=== PATIENT | female | born 1955 | race Caucasian/White ===

== ENCOUNTER 2018-03-13 09:58 | Emergency (ER) | payer OTHER ==
[2018-03-13] MEDS ORDERED: NA CHLORIDE 0.9% 1,000 ML ONE (10:27)
[2018-03-13] MEDS ORDERED: ONDANSETRON 4 MG/2 ML VIAL ONE ×2 (10:27→12:55)
[2018-03-13] MEDS ORDERED: MORPHINE 4 MG/ML SYR ONE (10:51)
[2018-03-13 10:55] LABS: Absolute Lymphocytes (CBC) 1.3 K/uL (0.7-4.9); Absolute Monocytes 0.2 K/uL (0.1-1.3); Absolute Neutrophil 8.5 K/uL (1.8-8.0); Basophils % 0.6 % (0-1.3); Hematocrit 42.8 % (36.0-45.0); Lymphocytes % 13.2 % (15.3-44.8); MCH 30.5 pg (27.0-35.0); MCV 87.1 fL (80-100); MPV 8.4 fL (7.6-11.3); Monocytes % 1.9 % (3.3-12.3); RBC Red Blood Cell Count 4.91 M/uL (3.86-4.86)
[2018-03-13 11:03] LABS: Bilirubin Direct 0.2 mg/dL (0-0.2); Bilirubin Total 0.6 mg/dL (0.2-1.0); Potassium 3.7 mmol/L (3.5-5.1); Protein, Total 7.6 g/dL (6.4-8.2)
--- NOTE | 2018-03-13 12:47 | EDPHYS ---
Physician Documentation [facility] Name: Yara Vee Age: 63 yrs Sex: Female : 1955 Arrival Date: 03/13/2018 Time: 10:02 Bed 13 Private MD: Walter Gauthier ED Physician Jagjit Jenkins HPI: 03/13 10:56 This 63 yrs old Female presents to ER via Wheelchair with complaints of kb Vomiting. 10:56 The patient presents to the emergency department with nausea, vomiting, diarrhea. kb Onset: The symptoms/episode began/occurred 4 day(s) ago. Possible causes: unknown. The symptoms are aggravated by nothing. The symptoms are alleviated by nothing. Associated signs and symptoms: Pertinent positives: diarrhea, nausea, vomiting. Severity of symptoms: At their worst the symptoms were moderate in the emergency department the symptoms are unchanged. The patient has not experienced similar symptoms in the past. The patient has not recently seen a physician. Historical: - Allergies: 10:08 No Known Allergies; aa5 - Home Meds: 10:15 morphine 100 mg Oral TbER 3 times a day [Active]; lisinopril 10 mg Oral tab 1 tab once aa5 daily [Active]; metoprolol succinate 100 mg oral Tb24 1 tab once daily [Active]; pravastatin 40 mg oral tab 1 tab once daily [Active]; sertraline 100 mg oral tab 1 tab once daily [Active]; - PMHx: 10:08 Hypertension; chronic back pain; Hyperlipidemia; aa5 - Immunization history:: Flu vaccine is not up to date. - Social history:: Smoking status: Patient uses tobacco products, denies chronic smoking, but will smoke occasionally. - Ebola Screening: : No symptoms or risks identified at this time. ROS: 11:13 Constitutional: Negative for fever, chills, and weight loss, Cardiovascular: Negative kb for chest pain, palpitations, and edema, Respiratory: Negative for shortness of breath, cough, wheezing, and pleuritic chest pain, Back: Negative for injury and pain, : Negative for injury, bleeding, discharge, and swelling, MS/Extremity: Negative for injury and deformity, Skin: Negative for injury, rash, and discoloration, Neuro: Negative for headache, weakness, numbness, tingling, and seizure. 11:13 Abdomen/GI: Positive for nausea, vomiting, and diarrhea, Negative for abdominal pain, constipation, abdominal cramps, abdominal distension, anorexia. Exam: 11:13 Constitutional: This is a well developed, well nourished patient who is awake, alert, kb and in no acute distress. Head/Face: Normocephalic, atraumatic. Chest/axilla: Normal chest wall appearance and motion. Nontender with no deformity. No lesions are appreciated. Cardiovascular: Regular rate and rhythm with a normal S1 and S2. No gallops, murmurs, or rubs. Normal PMI, no JVD. No pulse deficits. Respiratory: Lungs have equal breath sounds bilaterally, clear to auscultation and percussion. No rales, rhonchi or wheezes noted. No increased work of breathing, no retractions or nasal flaring. Abdomen/GI: Soft, non-tender, with normal bowel sounds. No distension or tympany. No guarding or rebound. No evidence of tenderness throughout. Skin: Warm, dry with normal turgor. Normal color with no rashes, no lesions, and no evidence of cellulitis. MS/ Extremity: Pulses equal, no cyanosis. Neurovascular intact. Full, normal range of motion. Neuro: Awake and alert, GCS 15, oriented to person, place, time, and situation. Cranial nerves II-XII grossly intact. Motor strength 5/5 in all extremities. Sensory grossly intact. Cerebellar exam normal. Normal gait. Vital Signs: 10:10 BP 163 / 93; Pulse 82; Resp 16 S; Temp 97.9(O); Pulse Ox 98% on R/A; Weight 56.7 kg aa5 (R); Height 5 ft. 5 in. (165.10 cm) (R); Pain 10/10; 11:18 BP 128 / 105; Pulse 79; Resp 14; Pulse Ox 98% ; bp 10:10 Body Mass Index 20.80 (56.70 kg, 165.10 cm) aa5 MDM: 10:08 Patient medically screened. kb 11:13 Data reviewed: vital signs, nurses notes. Data interpreted: Pulse oximetry: on room air kb is 98 %. Interpretation: normal. 11:56 Counseling: I had a detailed discussion with the patient and/or guardian regarding: the kb historical points, exam findings, and any diagnostic results supporting the discharge/admit diagnosis, lab results, the need for outpatient follow up, a family practitioner, to return to the emergency department if symptoms worsen or persist or if there are any questions or concerns that arise at home. 03/13 10:14 Order name: Basic Metabolic Panel; Complete Time: 11:12 kb 03/13 10:14 Order name: CBC with Diff; Complete Time: 11:12 kb 03/13 10:14 Order name: Hepatic Function; Complete Time: 11:12 kb 03/13 10:14 Order name: Lipase; Complete Time: 11:12 kb 03/13 10:14 Order name: IV Saline Lock; Complete Time: 10:32 kb 03/13 10:14 Order name: Labs collected and sent; Complete Time: 10:33 kb 03/13 11:56 Order name: PO challenge; Complete Time: 12:10 kb Administered Medications: 10:30 Drug: NS 0.9% 1000 ml Route: IV; Rate: 1000 ml; Site: left antecubital; bp 10:30 Drug: Zofran 4 mg Route: IVP; Site: left antecubital; bp 10:46 Follow up: Response: Nausea is decreased bp 10:48 Drug: morphine 4 mg Route: IVP; Site: left antecubital; bp 10:48 Follow up: Response: Pain is decreased bp 12:45 Drug: [place] 10 mg-325 mg 1 tabs Route: PO; bp 12:45 Drug: Zofran 4 mg Route: IVP; Site: left antecubital; bp Disposition: 15:44 Co-signature as Attending Physician, Jagjit Jenkins MD. rn Disposition: 03/13/18 12:46 Discharged to Home. Impression: Nausea with vomiting, unspecified, Diarrhea, unspecified. - Condition is Stable. - Discharge Instructions: Food Choices to Help Relieve Diarrhea, Adult, Nausea and Vomiting, Adult, [id number], Diarrhea, Adult, Onuq-gl-Hapy. - Prescriptions for Zofran 4 mg Oral Tablet - take 1 tablet by ORAL route every 4 hours As needed; 20 tablet. - Medication Reconciliation Form, Thank You Letter, Antibiotic Education, Prescription Opioid Use form. - Follow up: Emergency Department; When: As needed; Reason: Worsening of condition. Follow up: Private Physician; When: 2 - 3 days; Reason: Recheck today's complaints, Continuance of care, Re-evaluation by your physician. Signatures: Dispatcher [employer] EDVirginia Benavides, TOILET PRODUCTS MOLDER-C TOILET PRODUCTS MOLDER-Ckb Jagjit Jenkins MD MD rn Marysol Kevin, RN RN aa5 Walter Fofana, RN RN bp Corrections: (The following items were deleted from the chart) 13:40 12:46 03/13/2018 12:46 Discharged to Home. Impression: Nausea with vomiting, bp unspecified; Diarrhea, unspecified. Condition is Stable. Forms are Medication Reconciliation Form, Thank You Letter, Antibiotic Education, Prescription Opioid Use. Follow up: Emergency Department; When: As needed; Reason: Worsening of condition. Follow up: Private Physician; When: 2 - 3 days; Reason: Recheck today's complaints, Continuance of care, Re-evaluation by your physician. kb
--- NOTE | 2018-03-13 12:47 | ER ---
Nurse's Notes [facility] Name: Yara Vee Age: 63 yrs Sex: Female : 1955 Arrival Date: 03/13/2018 Time: 10:02 Bed 13 Private MD: Walter Gauthier Diagnosis: Nausea with vomiting, unspecified;Diarrhea, unspecified Presentation: 03/13 10:07 Presenting complaint: Patient states: nausea,vomiting, and diarrhea x 4 days ago. Pt aa5 states "I can't keep any of my meds down". 10:07 Transition of care: patient was not received from another setting of care. Onset of aa5 symptoms was March 2018. Risk Assessment: Do you want to hurt yourself or someone else? Patient reports no desire to harm self or others. Initial Sepsis Screen: Does the patient meet any 2 criteria? No. Patient's initial sepsis screen is negative. Does the patient have a suspected source of infection? No. Patient's initial sepsis screen is negative. Care prior to arrival: None. 10:07 Method Of Arrival: Wheelchair aa5 10:07 Acuity: JORGE 3 aa5 Triage Assessment: 10:30 General: Appears in no apparent distress. comfortable, Behavior is cooperative, bp appropriate for age, anxious. GI: Reports nausea, vomiting. Historical: - Allergies: 10:08 No Known Allergies; aa5 - Home Meds: 10:15 morphine 100 mg Oral TbER 3 times a day [Active]; lisinopril 10 mg Oral tab 1 tab once aa5 daily [Active]; metoprolol succinate 100 mg oral Tb24 1 tab once daily [Active]; pravastatin 40 mg oral tab 1 tab once daily [Active]; sertraline 100 mg oral tab 1 tab once daily [Active]; - PMHx: 10:08 Hypertension; chronic back pain; Hyperlipidemia; aa5 - Immunization history:: Flu vaccine is not up to date. - Social history:: Smoking status: Patient uses tobacco products, denies chronic smoking, but will smoke occasionally. - Ebola Screening: : No symptoms or risks identified at this time. Screenin:36 Abuse screen: Denies threats or abuse. Denies injuries from another. Nutritional bp screening: No deficits noted. Tuberculosis screening: No symptoms or risk factors identified. Fall Risk None identified. Assessment: 10:15 General: Appears in no apparent distress. uncomfortable, Behavior is cooperative, bp appropriate for age, anxious. Pain: Complains of pain in back. Neuro: Level of Consciousness is awake, alert, obeys commands, Oriented to person, place, time, situation, Appropriate for age. Cardiovascular: No deficits noted. Respiratory: Airway is patent Respiratory effort is even, unlabored, Respiratory pattern is regular, symmetrical. GI: Abdomen is non-distended, Bowel sounds present X 4 quads. : No signs and/or symptoms were reported regarding the genitourinary system. EENT: No deficits noted. Derm: No deficits noted. Musculoskeletal: Circulation, motion, and sensation intact. Range of motion: intact in all extremities. 11:19 Reassessment: ALL CURRENT ORDERS COMPLETED, RESULTS PENDING. bp 12:50 Reassessment: D/C ON HOLD FOR NAUSEA CONTROL. bp 13:30 Reassessment: PT D/C HOME VIA W/C, TRANSPORT PENDING. bp Vital Signs: 10:10 BP 163 / 93; Pulse 82; Resp 16 S; Temp 97.9(O); Pulse Ox 98% on R/A; Weight 56.7 kg aa5 (R); Height 5 ft. 5 in. (165.10 cm) (R); Pain 10/10; 11:18 BP 128 / 105; Pulse 79; Resp 14; Pulse Ox 98% ; bp 10:10 Body Mass Index 20.80 (56.70 kg, 165.10 cm) aa5 ED Course: 10:02 Patient arrived in ED. mr 10:03 Walter Gauthier MD is Private Physician. mr 10:04 Virginia Lawton FNP-C [facility]. kb 10:04 Jagjit Jenkins MD is Attending Physician. kb 10:07 Arm band placed on Patient placed in an exam room, on a stretcher. aa5 10:09 Walter Fofana, RN is Primary Nurse. bp 10:20 Triage completed. aa5 10:30 Inserted saline lock: 22 gauge in left antecubital area, using aseptic technique. Blood bp collected. 10:36 Patient has correct armband on for positive identification. Placed in gown. Bed in low bp position. Call light in reach. Side rails up X2. 13:31 No provider procedures requiring assistance completed. IV discontinued, intact, bp bleeding controlled, No redness/swelling at site. Pressure dressing applied. Administered Medications: 10:30 Drug: NS 0.9% 1000 ml Route: IV; Rate: 1000 ml; Site: left antecubital; bp 10:30 Drug: Zofran 4 mg Route: IVP; Site: left antecubital; bp 10:46 Follow up: Response: Nausea is decreased bp 10:48 Drug: morphine 4 mg Route: IVP; Site: left antecubital; bp 10:48 Follow up: Response: Pain is decreased bp 12:45 Drug: [place] 10 mg-325 mg 1 tabs Route: PO; bp 12:45 Drug: Zofran 4 mg Route: IVP; Site: left antecubital; bp Outcome: 12:46 Discharge ordered by . kb 13:31 Discharged to home via wheelchair, with family. bp 13:31 Condition: stable 13:31 Discharge instructions given to patient, Instructed on discharge instructions, follow up and referral plans. medication usage, Demonstrated understanding of instructions, follow-up care, medications, Prescriptions given X 1. 13:40 Patient left the ED. bp Signatures: Virginia Lawton, WATER SUPERINTENDENT-C WATER SUPERINTENDENT-Babita Phillips mr KevinMarysol, RN RN aa5 Walter Fofana, RN RN bp Corrections: (The following items were deleted from the chart) 13:32 13:31 Discharge instructions given to patient, Instructed on discharge instructions, bp follow up and referral plans. Demonstrated understanding of instructions, follow-up care, bp
[2018-03-13] MEDS ORDERED: HYDROCODONE/APAP 10/325 TAB ONE (12:55)
== END 2018-03-13 13:40 | disposition home or self-care (01) ==
LOC: ER 09:58
DX: R19.7 Diarrhea, unspecified (principal); I10 Essential (primary) hypertension; E78.5 Hyperlipidemia, unspecified; Z72.0 Tobacco use
CPT/HCPCS: 36415; 80048; 80076; 83690; 85025; 96374; 96375; 99284; J2405 ×2; J7030

== ENCOUNTER 2024-08-18 23:36 | Emergency (ER) | payer MEDICAID, OTHER ==
--- OUTSIDE RECORDS SUMMARY | 2024-08-18 23:47 | XMS REPORT | Continuity of Care Document ---
Author Name Unknown Address [address] [facility] [address] [place] [address] [facility] [place] Address [address] [facility] [address] [place] [address] Care Team Providers Care Well Tender Name Role Phone Matti Spence Primary Care Physician + [phone] MIGUEL BRYAN Attending Clinician Unavailable EMILY KENNEDY Attending Clinician Unavailable MD JESSIKA Attending Clinician Unavailab LICHA Lopez Attending Clinician Unavailable PLAB Attending Clinician Unavailable BEAR FERGUSON Attending Clinician Unavailab le [id number] Attending Clinician Unavailable TIFFANY SAMANIEGO Attending Clinician Unavailable Yoko Mckeon RN, Keysha Attending Clinician Sheri Enamorado RN, Natty Attending Clinician Unavailabl e LAB90 Attending Clinician Unavailable Bear Ferguson MD Attending Clinician Elisa ZAZUETA, Bear Hernandez Attending Clinician [phone] Darcy Quezada MD Attending Clinician [phone] DARCY QUEZADA Attending Clinician Unavailable AARTI VEGA Attending Clinician Unavailable DARCY QUEZADA Attending Clinician Unavailable CUAUHTEMOC WILHELM Attending Clinician UnaBEAR Murray Attending Clinician Unava ilable LAB47 Attending Clinician Unavailable [id number] Attending Clinician Unavailable MARIBEL BROWN Attending Clinician Unavailable NIK TORRES Attending Clinician Unavailable BHARATHI HOLLOWAY Attending Clinician Unavailable ROCIO PAULINO Attending Clinician Unavailable MATTI SEPNCE Attending Clinician Unava ilable PROVIDER, AFFILIATE Attending Clinician UnavailROCIO Turcios Attending Clinician Unavail able JIGNA ANNE Attending Clinician Unavailable Renny Vaz DO Attending Clinician [phone] Juan J Shoemaker MD Attending Clinician BEAR FERGUSON Attending Clinician Un available AMANDA ZUNIGA Attending Clinician UnavailEddy Castillo MD Attending Clinician [phone] James Gross MD Attending Clinician [phone] Joseph Cannon MD Attending Clinician [phone] VLADIMIR PATEL Attending Clinician UnavailTIM Patel Attending Clinician Unavailable Tim Adair MD Attending Clinician [phone] JOSE JAIME Attending Clinician Unavailable BEAR PÉREZ Attending Clinician Unava ilable CHRISTOPHER ZUNIGA Attending Clinician Unavailable [id number] Attending Clinician Unavailable EZ PERLA Attending Clinician Unavailtracey MANDUJANO Attending Clinician Unavailable ISAK DHILLON Attending Clinician Unavail able REJI KRUGER Attending Clinician Unavailable Bear Pérez MD Admitting Clinician [phone] BEAR PÉREZ Admitting Clinician Unava ilable BEAR FERGUSON Admitting Clinician Un available James Gross MD Admitting Clinician [phone] JAMES GROSS Admitting Clinician Unavail able Payers Payer Name Policy Type Policy Number Effective Date Expirati on Date Source [facility] HMO-POS 16 [id number] 00:[id number] 00:00:00 [facility] MEDICARE ADVANTAGE [id number] 2022 00:00:00 MEDICARE-PART B 5 [id number] 2020 00:00:00 Problems Condition Name Condition Details Condition Category Status Onset Date Resolution Date Last Treatment Date Treating Clinician Comments Source Mixed connective tissue disease (HHS-HCC) Mixed connective tissue disease (HHS-HCC) Disease Active 4- 00:00: 00 Selewold - Externa l Tobacco use Tobacco use Disease Active 3-07 00:00: 00 Seybold - Externa l Centrilobu lar emphysema (multi HCC) Centrilobu lar emphysema (multi HCC) Disease Active 2-20 00:00: 00 Seybold - Externa l Secondary immune deficiency disorder (HHS-HCC) Secondary immune deficiency disorder (HHS-HCC) Disease Active 2 00:00: 00 Seybold - Externa l PAD (periphera l artery disease) PAD (periphera l artery disease) Disease Active 2023-04 1 00:00: 00 Felipe London Epic Chronic, continuous use of opioids Chronic, continuous use of opioids Disease Active 12-06 00:00: 00 Selewold - Externa l Chronic anticoagul ation Chronic anticoagul ation Disease Active 12-06 00:00: 00 Seybold - Externa l Hypercoagu lable state (HHS-HCC) Hypercoagu lable state (HHS-HCC) Disease Active 12-06 00:00: 00 Selewold - Externa l Mild protein-ca stacy malnutriti on (HHS-HCC) Mild protein-ca stacy malnutriti on (HHS-HCC) Disease Active 12-06 00:00: 00 Kelsey Li - Externa l REF/LEG SWELLING INFECTION DR REF/LEG SWELLING INFECTION Active 08/16/2023 [facility] Diagnosis Active 08-15 00:00: 00 2023-08-16 17:26:00 Felipe London LOCAL INFECTION OF WOUND, PERIPHERAL VAS LOCAL INFECTION OF WOUND, PERIPHERAL VAS Active 08/16/2023 [facility] Diagnosis Active 08-15 00:00: 00 2023-08-22 21:55:00 Felipe London DX; PAD DX; PAD Active 07/12/2023 [facility] Diagnosis Active 4-11 00:00: 00 2023-07-17 06:16:00 Felipe London PAD (periphera l artery disease) PAD (periphera l artery disease) Disease Active 06-28 00:00: 00 Kelsey Moralesybold - Externa l History of subdural hematoma (post traumatic) History of subdural hematoma (post traumatic) Disease Active 06-28 00:00: 00 Seybold - Externa l History of peripheral artery bypass History of peripheral artery bypass Disease Active 06-28 00:00: 00 Overview: Formattin g of this note might be different from the original. S/p KARUNA 05/22/23 occluded left SFA and severe infrarena l aortic disease S/p axillary bifemoral bypass and right femoral endartere ctomy by Dr. Anne and Татьяна 05/23/23 Seybold - Externa l Trauma Trauma Disease Active 05-27 00:00: 00 [facility] Pulmonary fibrosis (multi HCC) Pulmonary fibrosis (multi HCC) Disease Active 2-06 00:00: 00 Seybold - Externa l Chronic venous insufficie ncy Chronic venous insufficie ncy Disease Active - 00:00: 00 Seybold - Externa l Aorto-alex c disease Aorto-alex c disease Disease Active - 00:00: 00 Seybold - Externa l Chronic ulcer of ankle, right, limited to breakdown of skin (multi HCC) Chronic ulcer of ankle, right, limited to breakdown of skin (multi HCC) Disease Active 2022-04 00:00: 00 Seybold - Externa l Chronic ulcer of right leg, with fat layer exposed (multi HCC) Chronic ulcer of right leg, with fat layer exposed (multi HCC) Disease Active 2022-04 00:00: 00 Seybold - Externa l Positive colorectal cancer screening using Cologuard test Positive colorectal cancer screening using Cologuard test Disease Active 2022-04 0- 00:00: 00 Seybold - Externa l Prediabete s Prediabete s Disease Active 2022-04 0-11 00:00: 00 Kelsey Li - Externa l Well adult exam Well adult exam Disease Active 04-10 00:00: 00 Kelsey Li - Externa l 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 04-10 00:00: 00 Kelsey Li - Externa lucy 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 Disease Active 04-10 00:00: 00 Kelsey Li - Externa lucy Chronic pain syndrome Chronic pain syndrome Disease Active 04-10 00:00: 00 Kelsey Li - Externa lucy Pressure injury of right foot, stage 1 Pressure injury of right foot, stage 1 Disease Active 04-10 00:00: 00 Kelsey Li - Externa lucy Insomnia Insomnia Disease Active 04-10 00:00: 00 Kelsey Li - Externa lucy Swelling of joint of left hand Swelling of joint of left hand Disease Active 04-10 00:00: 00 Kelsey Li - Externa lucy Primary hypertensi on Primary hypertensi on Disease Active 09-22 00:00: 00 Kelsey Li - Externa lucy Hyperlipid emia Hyperlipid emia Disease Active 09-22 00:00: 00 Kelsey Li - Externa lucy DM type 2 with diabetic mixed hyperlipid emia (multi HCC) DM type 2 with diabetic mixed hyperlipid emia (multi HCC) Disease Active 09-22 00:00: 00 Kelsey Li - Externa lucy Chronic left hip pain Chronic left hip pain Disease Active 12-25 00:00: 00 [facility] Hypovolemi a Hypovolemi a Disease Active 12-25 00:00: 00 [facility] 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 08-12 00:00: 00 [facility] UTI (urinary tract infection) UTI (urinary tract infection) Disease Active 08-12 00:00: 00 [facility] MDD (major depressive disorder) MDD (major depressive disorder) Disease Active 08-12 00:00: 00 [facility] Hyponatrem ia Hyponatrem ia Disease Active 08-10 00:00: 00 [facility] COPD (chronic obstructiv e pulmonary disease) (multi HCC) COPD (chronic obstructiv e pulmonary disease) (multi HCC) Disease Active Kelsey ayala History of lumbar surgery History of lumbar surgery Disease Active Kelsey Glasgow l Chronic back pain Chronic back pain Disease Active Kelsey Glasgow l Traumatic AND/OR non-trauma tic injury (disorder) Traumatic AND/OR non-trauma tic injury (disorder) Diagnosis 08/20/2023 [facility] Diagnosis 2023-08-20 23:01:30 Felipe London OTHER INJURY OF UNSPECIFIE D BODY REGION, OTHER INJURY OF UNSPECIFIE D BODY REGION, Active [facility] Diagnosis Active 2023-08-22 21:55:00 Felipe London PERIPHERAL VASCULAR DISEASE, UNSPECIFIE D PERIPHERAL VASCULAR DISEASE, UNSPECIFIE D Active [facility] Diagnosis Active 2023-08-22 21:55:00 Felipe London Hypertensi ve disorder, systemic arterial (disorder) Hypertensi ve disorder, systemic arterial (disorder) Active Problem 08/20/2023 [facility] Problem Active 2023-08-20 23:01:30 Felipe London ILLNESS, UNSPECIFIE D ILLNESS, UNSPECIFIE D Active [facility] Diagnosis Active 2023-05-27 23:40:00 Felipe London Allergies, Adverse Reactions, Alerts Allergy Name Allergy Type Status Severity Reaction(s) Onset Date Inactive Date Treating Clinician Comments Source Pentoxif ylline Propensi ty to adverse reaction s Active Nausea and Vomiting 05-22 00:00: 00 Kelsey ayala NO KNOWN ALLERGIE S Drug Class Active [facility] Social History Social Habit Start Date Stop Date Quantity Comments Source Gender identity 2023-06-23 21:20:56 Identifies as female gender (finding[facility] History of Occupation Kelsey Li - External History of tobacco use Smokes tobacco daily [facility] ASSERTION Not Felipe London [facility] Sexual orientation [facility] History of Social function 2024-02-27 00:00:00 2024-02-27 00:00:00 [facility] Alcoholic beverage intake 2024-02-25 00:00:00 2024-02-25 00:00:00 Ex-drinker (finding) [facility] Cigarette pack-years 2023-09-19 00:00:00 2023-09-19 00:00:00 Kelsey Li - External Tobacco use and exposure 2023-09-19 00:00:00 2023-09-19 00:00:00 Smokeless tobacco non-user Kelsey Li - External Tobacco Comment 2023-06-28 00:00:00 2023-06-28 00:00:00 Less than 10 [facility] Cigarettes smoked current (pack per day) - Reported 2023-05-27 00:00:00 2023-05-27 00:00:00 [facility] Alcohol intake 2023-05-27 00:00:00 2023-05-27 00:00:00 Ex-drinker (finding) [facility] Education 2022-04-10 00:00:00 2022-04-10 00:00:00 16 Kelsey Rogersold - External Sex 2020-06-29 17:06:24 2020-06-29 17:06:24 Female (finding) Kelsey Li - External Sex assigned at 1955 00:00:00 1955 00:00:00 [facility] Smoking Status Start Date Stop Date Source Smokes tobacco daily Felipe London [facility] Occasional tobacco smoker 2023-09-19 00:00:00 Kelsey Li - External Medications Ordered Medication Name Filled Medication Name Start Date Stop Date Current Medication? Ordering Clinician Indication Dosage Frequency Signature (SIG) Comments Components Source Aspirin (Aspirin 81) 81 MG oral Tablet Delayed Response 07-29 10:58: 25 Yes 81mg QD Take 1 tablet (81 mg total) by mouth daily. Kelsey ayala Pravastatin Sodium 80 MG oral Tablet 07-16 00:00: 00 Yes [id number] 80mg QD TAKE 1 TABLET BY MOUTH AT NIGHT Kelsey ayala Aspirin (Aspirin 81) 81 MG oral Tablet Delayed Response 07-01 09:59: 41 Yes 81mg QD Take 1 tablet (81 mg total) by mouth daily. Kelsey ayala Gentamicin Sulfate 0.1 % apply externally Ointment 07-01 00:00: 00 Yes [id number] Apply to open ulcer on the L leg BID. Kelsey ayala Trazodone HCl 50 MG oral Tablet - 00:00: 00 Yes [id number] 50mg QD Take 1 tablet (50 mg total) by mouth nightly. Kelsey ayala Furosemide 40 MG oral Tablet 06-19 00:00: 00 Yes [id number] 40mg QD Take 1 tablet (40 mg total) by mouth daily as needed. Kelsey ayala Metformin HCl 500 MG oral Tablet 06-19 00:00: 00 Yes [id number] 3 500mg QD Take 1 tablet (500 mg total) by mouth daily (with breakfast) . Kelsey ayala Rivaroxaban (Xarelto) 2.5 MG oral Tablet 06-19 00:00: 00 Yes 2.5mg Q.5D TAKE ONE TABLET BY MOUTH 2 TIMES DAILY. Kelsey ayala Aspirin (Aspirin 81) 81 MG oral Tablet Delayed Response 06-06 10:51: 13 Yes 81mg QD Take 1 tablet (81 mg total) by mouth daily. Kelsey ayala Duloxetine HCl [address] Particles 06-06 00:00: 00 Yes [id number] 30mg QD Take 1 capsule (30 mg total) by mouth daily. Kelsey ayala Metoprolol Succinate 100 MG oral TABLET SR 24 HR 2-21 00:00: 00 Yes [id number] 100mg QD Take 1 tablet (100 mg total) by mouth daily. Kelsey ayala Aspirin (Aspirin 81) 81 MG oral Tablet Delayed Response 220 15:15: 09 Yes 81mg QD Take 1 tablet (81 mg total) by mouth daily. Kelsey ayala Varenicline Tartrate, Starter, 0.5 MG X 11 & 1 MG X 42 oral Tablet Therapy Pack 05-22 00:00: 00 Yes [id number] Take 0.5mg tablet by mouth daily for 3 days, then increase to 0.5mg tablet twice daily for 3 days, then increase to 1mg tablet twice daily.. Kelsey ayala Albuterol HFA 108 (90 Base) MCG/ACT IN AERS 05-22 00:00: 00 Yes [id number] 2{puff} Q.25D Inhale 2 puffs into the lungs every 6 hours as needed for wheezing or shortness of breath. Kelsey ayala Aspirin (Aspirin 81) 81 MG oral Tablet Delayed Response 04-21 13:49: 54 Yes 81mg QD Take 1 tablet (81 mg total) by mouth daily. Kelsey ayala Aspirin (Aspirin 81) 81 MG oral Tablet Delayed Response 2023-04 10:25: 17 Yes 81mg QD Take 1 tablet (81 mg total) by mouth daily. Kelsey ayala Gentamicin Sulfate 0.1 % apply externally Ointment 2023-04 00:00: 00 07-01 00:00 :00 No [id number] Apply to open ulcer on the L leg BID. Kelsey ayala Pentoxifyll ine CR 400 MG oral Tab CR 2023-04 00:00: 00 05-22 00:00 :00 No [id number] 400mg Take 1 tablet (400 mg total) by mouth 3 times daily (with meals). Kelsey ayala Amoxicillin -Pot Clavulanate 875-125 MG oral Tablet 2023-04 00:00: 00 05-22 00:00 :00 No [id number] Take 1 pill PO BID x 2 weeks. Kelsey ayala Aspirin (Aspirin 81) 81 MG oral Tablet Delayed Response 2023-04 14:11: 27 Yes 81mg QD Take 1 tablet (81 mg total) by mouth daily. Kelsey ayala levoFLOXaci n 750 MG oral Tablet 2023-04 00:00: 00 05-22 00:00 :00 No 750mg QD Take 1 tablet (750 mg total) by mouth daily. Kelsey ayala Aspirin (Aspirin 81) 81 MG oral Tablet Delayed Response 2023-04 07:28: 32 Yes 81mg QD Take 1 tablet (81 mg total) by mouth daily. Kelsey ayala Triamcinolo ne Acetonide 0.1 % apply externally Ointment 2023-04 00:00: 00 Yes [id number] Apply to skin around the ulcer on the L leg BID PRN. Do not use on face, groin, arm pits.. Kelsey ayala Gentamicin Sulfate 0.1 % apply externally Ointment 2023-04 00:00: 00 03-31 00:00 :00 No [id number] Apply to open ulcer on the L leg BID. Kelsey ayala Morphine Sulfate ER 60 MG oral Tab CR 2023-04 00:00: 00 Yes Take by mouth. Kelsey ayala cephalexin (Keflex) 500 MG capsule cephalexin (Keflex) 500 MG capsule 2023-04 00:00: 00 03-05 23:59 :00 No 500mg Q.25D Take 1 capsule by mouth in the morning and 1 capsule at noon and 1 capsule in the evening and 1 capsule before bedtime. Do all this for 7 days. Felipe Bowden sulfamethox azole-trime thoprim (Bactrim DS) 800-160 MG per tablet sulfamethox azole-trime thoprim (Bactrim DS) 800-160 MG per tablet 2023-04 00:00: 00 03-05 23:59 :00 No 1{tbl} Q.5D Take 1 tablet by mouth in the morning and 1 tablet in the evening. Do all this for 7 days. Felipe Bowden pravastatin (Pravachol) tablet 40 mg pravastatin (Pravachol) tablet 40 mg 2023-04 21:00: 00 Yes 40mg 40 mg, Oral, Nightly, First dose on Sun02/26/24 at 2100 Felipe Bowden heparin 50 units/mL in sodium chloride 0.45 % heparin 50 units/mL in sodium chloride 0.45 % 2023-04 16:45: 00 Yes .1U/kg/ h 0.1-40 Units/kg/h r ?50.4 kg (0.1008-40 .32 mL/hr, rounded to 0.1-40.32 mL/hr), Intravenou s, Continuous , Starting on Sun02/26/24 at 1645, AFIB/Strok e PTT Weight Based Heparin Protocol Calculate heparin infusion dose using ACTUAL BODY WEIGHT. Start at 14 units/kg/h r (MAX INITIAL INFUSION = 1,200 units/hr = 24 mL/hr) - adjust per AFIB / Stroke Guidelines below Draw baseline PTT. Initiate drip. DO NOT wait for PTT results to start drip. Draw PTT 6 hours after drip initiation and 6 hours after every dose change. No heparin loading dose or bolus unless specifical ly ordered by provider. Do not draw PTT through line heparin is infused. --- Titration Table PTT < 30 sec: INCREASE dose by 4 units /kg/hr (Actual body Weight). Notify Provider STAT. Draw PTT 6 hours after increase in dose. PTT 30 - 45.9 sec: INCREASE dose by 3 units/kg/h r (Actual body Weight). Draw PTT 6 hours after increase in dose. PTT 46 - 59.9 sec: INCREASE dose by 2 units/kg/h r (Actual body Weight). Draw PTT 6 hours after increase in dose. PTT 60 - 79.9 sec: Therapeuti c, continue at same dose. Redraw PTT in 6 hours to confirm. Once 3 consecutiv e therapeuti c PTT, reduce draws to Q12H. PTT 80 - 90.9 sec: DECREASE dose by 1 unit/kg/hr (Actual Body Weight). Draw PTT 6 hours after decrease in dose. PTT 91 - 99.9 sec: HOLD infusion for 45 min. Notify provider STAT. DECREASE dose by 2 units/kg/h r (Actual Body Weight). Draw PTT 6 hours after decrease in dose. PTT 100 - 119.9 sec: HOLD infusion for 60 min. Notify provider STAT. DECREASE dose by 3 units/kg/h r (Actual Body Weight). Draw PTT 6 hours after decrease in dose. PTT 120 - 150.9 sec: HOLD infusion for 60 min. Notify provider STAT. DECREASE dose by 4 units/kg/h r (Actual Body Weight). Draw PTT 6 hours after decrease in dose. PTT >/= 151 sec: HOLD infusion and repeat PTT STAT through venipunctu re or separate line. Notify provider STAT. 1. If repeat PTT < 151 sec, then follow above protocol. 2. If repeat PTT >/= 151 sec, then continue to HOLD infusion & repeat PTT every 2 hours until PTT < 100 sec. Then DECREASE previous dose by 5 units/kg/h r (Actual Body Weight). Draw PTT 6 hours after decrease in dose --- Felipe Bowden acetaminoph en (Tylenol) tablet 650 mg acetaminoph en (Tylenol) tablet 650 mg 2023-04 11:48: 33 Yes 650mg Q6H 650 mg, Oral, Every 6 hours PRN, mild pain (1-3), headaches, fever, Starting on Sun02/26/24 at 1148 Felipe Bowden sodium chloride (NS) 0.9 % flush 10 mL sodium chloride (NS) 0.9 % flush 10 mL 2023-04 09:45: 00 Yes 10mL Q.5D 10 mL, Intravenou s, Every 12 hours scheduled, First dose on Sun02/26/24 at 0945, Administer at least once every 12 hours Felipe Bowden metoprolol succinate XL (Toprol-XL) 24 hr tablet 100 mg metoprolol succinate XL (Toprol-XL) 24 hr tablet 100 mg 2023-04 09:45: 00 Yes 100mg QD 100 mg, Oral, Daily, First dose on Sun02/26/24 at 0945, Do not crush or chew. Felipe Bowden lisinopril tablet 5 mg lisinopril tablet 5 mg 2023-04 09:45: 00 Yes 5mg QD 5 mg, Oral, Daily, First dose on Sun02/26/24 at 0945 Felipe Bowden aspirin chewable tablet 81 mg aspirin chewable tablet 81 mg 2023-04 09:45: 00 Yes 81mg QD 81 mg, Oral, Daily, First dose on Sun02/26/24 at 0945 Felipe Bowden insulin lispro (HumaLOG, Admelog) injection 2-8 Units insulin lispro (HumaLOG, Admelog) injection 2-8 Units 2023-04 09:39: 03 Yes 2U [id number] 3D 2-8 Units, Subcutaneo us, 3 times daily PRN, high blood sugar, with meals, Starting on Sun02/26/24 at 0939, For BG < 70, follow hypoglycem ia protocol and notify ordering provider. If patient can eat or drink, give oral carbohydra te as ordered per hypoglycem ia protocol. If patient NPO, give dextrose 50 % IV as ordered per hypoglycem ia protocol. If NPO and no IV access, give glucagon IM as ordered per hypoglycem ia protocol. Check BG every 15 minutes and repeat treatment if continued BG < 80., Correction Insulin Dosing: (DO NOT CHANGE DEFAULT SELECTION/ VALUES): Starting, BG < 70 instructio ns: Follow Hypoglycem ia Orders, BG 70-149 instructio ns: No Dose Needed, BG 150-199: 2, BG 200-249: 4, BG 250-299: 6, BG >/= 300: 8, BG > 300 instructio ns: Contact Provider Felipe Bowden ondansetron (Zofran) injection 4 mg ondansetron (Zofran) injection 4 mg 2023-04 09:35: 46 Yes 4mg Q8H 4 mg, Intravenou s, Every 8 hours PRN, nausea, vomiting, Starting on Sun02/26/24 at 0935, Phase II/On Unit Felipe Bowden morphine CR (MS Contin) 12 hr tablet 60 mg morphine CR (MS Contin) 12 hr tablet 60 mg 2023-04 09:35: 02 Yes 60mg Q8H 60 mg, Oral, Every 8 hours PRN, prn pain 4-7 (this is a home med), Starting on Sun02/26/24 at 0935, Do not crush, chew, or split. Felipe Bowden loperamide (Imodium) capsule 2-4 mg loperamide (Imodium) capsule 2-4 mg 2023-04 09:32: 24 Yes 2mg 2-4 mg, Oral, As needed, diarrhea, Starting on Sun02/26/24 at 0932, Give 4 mg after the first loose stool, then 2 mg/dose after each subsequent loose stool to a max of 8 mg per 24 hours Felipe London [facility] hydrALAZINE injection 10 mg hydrALAZINE injection 10 mg 2023-04 09:32: 24 Yes 10mg Q4H 10 mg, Intravenou s, Every 4 hours PRN, high blood pressure, prn SBP > 165 1st line, Starting on Sun02/26/24 at 0932, Can repeat x1 if BP still over 165 20 minutes later Felipe London [facility] GI cocktail (aluminum hydroxide/m agnesium hydroxide/l idocaine/si methicone) GI cocktail (aluminum hydroxide/m agnesium hydroxide/l idocaine/si methicone) 2023-04 09:32: 24 Yes 45mL 45 mL, Oral, Every 12 hours PRN, other, dyspepsia/ indigestio n second line, Starting on Sun02/26/24 at 0932 Felipe London [facility] ipratropium -albuterol (Duo-Neb) 0.5-2.5 mg/3 mL nebulizer solution 3 mL ipratropium -albuterol (Duo-Neb) 0.5-2.5 mg/3 mL nebulizer solution 3 mL 2023-04 09:32: 24 Yes 3mL Q6H 3 mL, Nebulizati on, Every 6 hours PRN, wheezing, shortness of breath, Starting on Sun02/26/24 at 0932 Felipe London [facility] white petrolatum- mineral oil (Lacri-Lube ) ophthalmic ointment white petrolatum- mineral oil (Lacri-Lube ) ophthalmic ointment 2023-04 09:32: 24 Yes [id number] 3D Both Eyes, 3 times daily PRN, dry eyes, Starting on Sun02/26/24 at 0932 Felipe London [facility] HYDROmorpho ne PF (Dilaudid) injection 0.5 mg HYDROmorpho ne PF (Dilaudid) injection 0.5 mg 2023-04 09:32: 24 Yes .5mg Q4H 0.5 mg, Intravenou s, Every 4 hours PRN, severe pain (7-10), Starting on Sun02/26/24 at 0932 Felipe Bowden ondansetron (Zofran) injection 4 mg ondansetron (Zofran) injection 4 mg 2023-04 09:32: 24 Yes 4mg Q4H 4 mg, Intravenou s, Every 4 hours PRN, nausea, vomiting, first line, Starting on Sun02/26/24 at 0932 Felipe Bowden calcium carbonate (Tums) chewable tablet 1,000 mg calcium carbonate (Tums) chewable tablet 1,000 mg 2023-04 09:32: 24 Yes 1000mg [id number] 3D 1,000 mg, Oral, 3 times daily PRN, heartburn, indigestio n, second line, Starting on Sun02/26/24 at 0932 Felipe Bowden traZODone (Desyrel) tablet 50 mg traZODone (Desyrel) tablet 50 mg 2023-04 09:32: 24 Yes 50mg QD 50 mg, Oral, Nightly PRN, sleep, sleep second line, Starting on Sun02/26/24 at 0932 Felipe Bowden benzonatate (Tessalon) capsule 200 mg benzonatate (Tessalon) capsule 200 mg 2023-04 09:32: 24 Yes 200mg [id number] 3D 200 mg, Oral, 3 times daily PRN, cough, cough second line, Starting on Sun02/26/24 at 0932, Do not crush or chew. Felipe Bowden simethicone (Mylicon) chewable tablet 80 mg simethicone (Mylicon) chewable tablet 80 mg 2023-04 09:32: 24 Yes 80mg Q6H 80 mg, Oral, Every 6 hours PRN, flatulence , gas pain, Starting on Sun02/26/24 at 0932 Felipe Bowden senna-docus ate (Meri-Colac e) 8.6-50 mg per tablet 1 tablet senna-docus ate (Meri-Colac e) 8.6-50 mg per tablet 1 tablet 2023-04 09:32: 24 Yes 1{tbl} Q24H 1 tablet, Oral, Daily PRN, constipati on, constipati on second line, Starting on Sun02/26/24 at 0932 Felipe Bowden famotidine (Pepcid) tablet 20 mg famotidine (Pepcid) tablet 20 mg 2023-04 09:32: 24 Yes 20mg Q24H 20 mg, Oral, Daily PRN, heartburn, indigestio n, 1st line, Starting on Sun02/26/24 at 0932 Felipe Bowden dextrometho rphan-guaiF ENesin (Mucinex DM) 30-600 MG per 12 hr tablet 1 tablet dextrometho rphan-guaiF ENesin (Mucinex DM) 30-600 MG per 12 hr tablet 1 tablet 2023-04 09:32: 24 Yes 1{tbl} Q.5D 1 tablet, Oral, 2 times daily PRN, cough, Starting on Sun02/26/24 at 0932, Do not crush, chew, or split. Felipe Bowden polyethylen e glycol (PEG) 3350 (Miralax) packet 17 g polyethylen e glycol (PEG) 3350 (Miralax) packet 17 g 2023-04 09:32: 24 Yes 17g Q24H 17 g, Oral, Daily PRN, constipati on, constipati on 1st line, Starting on Sun02/26/24 at 0932, Dissolve 17 g in 120 to 240 mL (4 to 8 ounces) of beverage. Felipe Bowden melatonin tablet 3 mg melatonin tablet 3 mg 2023-04 09:32: 24 Yes 3mg QD 3 mg, Oral, Nightly PRN, sleep, sleep 1st line, Starting on Sun02/26/24 at 0932 Felipe Bowden calcium gluconate 3 g in sodium chloride 0.9 % 150 mL IVPB calcium gluconate 3 g in sodium chloride 0.9 % 150 mL IVPB 2023-04 09:24: 54 Yes 3g 3 g, Intravenou s, Administer over 30 Minutes, As needed, Abnormal Lab Result, For NON-ICU Patients Only, Starting on Sun02/26/24 at 923, For Ionized Calcium 1-1.05 mmol/L: Replace with 2 gm Calcium gluconate IVPB over 30 minutes x 1 dose. For Ionized Calcium 0.91 - 0.99 mmol/L: Replace with 3 gm Calcium gluconate IVPB over 30 minutes x 1 dose. Recheck Ionized Calcium level 4 hours after Calcium replacemen t.? Notify MD if ionized calcium < 0.91 mMol/L prior to replacemen t. *DO NOT replace if patient is on dialysis, temperatur e < 35 Celsius, or serum creatinine >2.0 mg/dL or GFR < 45 mL/min. Felipe [place] Epic calcium gluconate 2 g in sodium chloride 0.9 % 100 mL IVPB calcium gluconate 2 g in sodium chloride 0.9 % 100 mL IVPB 2023-04 09:24: 54 Yes 2g 2 g, Intravenou s, Administer over 30 Minutes, As needed, Abnormal Lab Result, For NON-ICU Patients Only., Starting on Sun02/26/24 at 923, For Ionized Calcium 1-1.05 mmol/L: Replace with 2 gm Calcium gluconate IVPB over 30 minutes x 1 dose. For Ionized Calcium 0.91 - 0.99 mmol/L: Replace with 3 gm Calcium gluconate IVPB over 30 minutes x 1 dose. Recheck Ionized Calcium level 4 hours after Calcium replacemen t.? Notify MD if ionized calcium < 0.91 mMol/L prior to replacemen t. *DO NOT replace if patient is on dialysis, temperatur e < 35 Celsius, or serum creatinine >2.0 mg/dL or GFR < 45 mL/min. Felipe London Epic magnesium oxide (Mag-Ox) tablet 800 mg magnesium oxide (Mag-Ox) tablet 800 mg 2023-04 09:24: 54 Yes 800mg 800 mg, Oral, As needed, Abnormal Lab Result, For NON-ICU Patients Only., Starting on Sun02/26/24 at 923, For Magnesium 1.8 - 2.0 mg/dL:? Replace with Magnesium 800 mg PO x 1 dose. For Magnesium 1.5 - 1.7 mg/dL: Replace with Magnesium 800 mg PO every 4 hours x 2 doses. For Magnesium 1.1 - 1.4 mg/dL:? Replace with Magnesium 800 mg PO every 4 hours x 3 doses.? Recheck Magnesium level 4 hours after the end of replacemen t.Notify MD if Magnesium level is < 1.1 mg/dL prior to replacemen t.*Use PO or NJ administra tion unless patient is first 12 hours post-op, active GI bleed, acute arrhythmia s, ischemic bowel or NPO. *DO NOT replace if patient is on dialysis, temperatur e < 35 Celsius, or serum creatinine > 2.0 mg/dL or GFR < 45 mL/min. Elierandreia lucy [facility] Epic magnesium sulfate IVPB 4 g magnesium sulfate IVPB 4 g 2023-04 09:24: 54 Yes 4g 4 g, Intravenou s, at 25 mL/hr, Administer over 4 Hours, As needed, Abnormal Lab Result, For NON-ICU Patients Only, Starting on Sun02/26/24 at 0924, For Magnesium 1.8 - 2 mg/dL: Replace with Magnesium Sulfate 1 gram IVPB over 1 hour x 1 dose. For Magnesium 1.5 - 1.7 mg/dL: Replace with Magnesium Sulfate 2 grams IVPB over 2 hours x 1 dose. For Magnesium 1.1 - 1.4 mg/dL:? Replace with Magnesium Sulfate 4 grams IVPB over 4 hours x 1 dose. Recheck Magnesium level 4 hours after the end of replacemen t.Notify MD if Magnesium level is < 1.1 mg/dL prior to replacemen t.*Use PO or NJ administra tion unless patient is first 12 hours post-op, active GI bleed, acute arrhythmia s, ischemic bowel or NPO. *DO NOT replace if patient is on dialysis, temperatur e < 35 Celsius, or serum creatinine > 2.0 mg/dL or GFR < 45 mL/min. Elierandreia lucy [place] Epic magnesium sulfate IVPB 2 g magnesium sulfate IVPB 2 g 2023-04 09:24: 54 Yes 2g 2 g, Intravenou s, at 25 mL/hr, Administer over 2 Hours, As needed, Abnormal Lab Result. For NON-ICU Patients Only., Starting on Sun02/26/24 at 0924, For Magnesium 1.8 - 2 mg/dL: Replace with Magnesium Sulfate 1 gram IVPB over 1 hour x 1 dose. For Magnesium 1.5 - 1.7 mg/dL: Replace with Magnesium Sulfate 2 grams IVPB over 2 hours x 1 dose. For Magnesium 1.1 - 1.4 mg/dL:? Replace with Magnesium Sulfate 4 grams IVPB over 4 hours x 1 dose. Recheck Magnesium level 4 hours after the end of replacemen t.Notify MD if Magnesium level is < 1.1 mg/dL prior to replacemen t.*Use PO or NJ administra tion unless patient is first 12 hours post-op, active GI bleed, acute arrhythmia s, ischemic bowel or NPO. *DO NOT replace if patient is on dialysis, temperatur e < 35 Celsius, or serum creatinine > 2.0 mg/dL or GFR < 45 mL/min. Felipe l [facility] Epic magnesium sulfate in D5W IVPB 1 g magnesium sulfate in D5W IVPB 1 g 2023-04 09:24: 54 Yes 1g 1 g, Intravenou s, at 100 mL/hr, Administer over 1 Hours, As needed, Abnormal Lab Result, For NON-ICU Patients Only., Starting on Sun02/26/24 at 0924, For Magnesium 1.8 - 2 mg/dL: Replace with Magnesium Sulfate 1 gram IVPB over 1 hour x 1 dose. For Magnesium 1.5 - 1.7 mg/dL: Replace with Magnesium Sulfate 2 grams IVPB over 2 hours x 1 dose. For Magnesium 1.1 - 1.4 mg/dL:? Replace with Magnesium Sulfate 4 grams IVPB over 4 hours x 1 dose. Recheck Magnesium level 4 hours after the end of replacemen t.Notify MD if Magnesium level is < 1.1 mg/dL prior to replacemen t.*Use PO or NJ administra tion unless patient is first 12 hours post-op, active GI bleed, acute arrhythmia s, ischemic bowel or NPO. *DO NOT replace if patient is on dialysis, temperatur e < 35 Celsius, or serum creatinine > 2.0 mg/dL or GFR < 45 mL/min. Elieroria l [place] Epic sodium phosphates 30 mmol in sodium chloride 0.9 % 100 mL IVPB sodium phosphates 30 mmol in sodium chloride 0.9 % 100 mL IVPB 2023-04 09:24: 54 Yes 30mmol 30 mmol, Intravenou s, Administer over 4 Hours, As needed, Abnormal Lab Result, For NON-ICU Patients Only, Starting on Sun02/26/24 at 0924, Evaluate Potassium, Phosphorou s, and Sodium level prior to replacemen t.Phosphor ous IVPB replacemen t when K > 3.9 mEq/L: (For PO or NJ replacemen t option, see orders for potassium phosphate- sodium phosphate oral packet.) For phosphorou s 2 - 2.4 mg/dL and K > 3.9 mEq/L: Replace with Sodium Phosphate 15 mmol IVPB over 4 hrs. For phosphorou s 1.6 - 1.9 mg/dL and K > 3.9 mEq/L: Replace with Sodium Phosphate 30 mmol IVPB over 4 hrs. Recheck phosphorou s level 4 hours after replacemen t complete.Gabrielle garcia MD if Phosphorou s level < 1.6 mg/dL or Na > 148 mEq/L prior to replacemen t. *Use PO or NJ administra tion unless patient is first 12 hours post-op, active GI bleed, acute arrhythmia s, ischemic bowel or NPO. *DO NOT replace if patient is on dialysis, temperatur e < 35 Celsius, or serum creatinine > 2.0 mg/dL or GFR < 45 mL/min. Memoria l [place] Epic sodium phosphates 15 mmol in sodium chloride 0.9 % 100 mL IVPB sodium phosphates 15 mmol in sodium chloride 0.9 % 100 mL IVPB 2023-04 09:24: 54 Yes 15mmol 15 mmol, Intravenou s, Administer over 4 Hours, As needed, Abnormal Lab Result, For NON-ICU Patients Only, Starting on Sun02/26/24 at 0924, Evaluate Potassium, Phosphorou s, and Sodium level prior to replacemen t.Phosphor ous IVPB replacemen t when K > 3.9 mEq/L: (For PO or NJ replacemen t option, see orders for potassium phosphate- sodium phosphate oral packet.) For phosphorou s 2 - 2.4 mg/dL and K > 3.9 mEq/L: Replace with Sodium Phosphate 15 mmol IVPB over 4 hrs. For phosphorou s 1.6 - 1.9 mg/dL and K > 3.9 mEq/L: Replace with Sodium Phosphate 30 mmol IVPB over 4 hrs. Recheck phosphorou s level 4 hours after replacemen t complete.Gabrielle garcia MD if Phosphorou s level < 1.6 mg/dL or Na > 148 mEq/L prior to replacemen t. *Use PO or NJ administra tion unless patient is first 12 hours post-op, active GI bleed, acute arrhythmia s, ischemic bowel or NPO. *DO NOT replace if patient is on dialysis, temperatur e < 35 Celsius, or serum creatinine > 2.0 mg/dL or GFR < 45 mL/min. Memoria l [facility] Epic Potassium Phosphates 30 mmol in sodium chloride 0.9 % 250 mL infusion Potassium Phosphates 30 mmol in sodium chloride 0.9 % 250 mL infusion 2023-04 09:24: 54 Yes 30mmol 30 mmol, Intravenou s, Administer over 4 Hours, As needed, Abnormal Lab Result, For NON-ICU Patients Only, Starting on Sun02/26/24 at 0924, Potassium and Phosphorou s replacemen t:For K 3.5 - 3.9 mEq/L AND phosphorou s 2.0 - 2.4 mg/dL: Replace with Potassium Phosphate 15 mMol IVPB over 4 hours. For K 3.1 - 3.4 mEq/L AND phosphorou s 2.0 - 2.4 mg/dL: Replace with KCL 20 meq PO/NJ (or IVPB over 2 hours) followed by Potassium Phosphate 15 mMol IVPB over 4 hours. For K 3.1 - 3.9 mEq/L AND phosphorou s 1.6 - 1.9 mg/dL: Replace with Potassium Phosphate 30 mMol IVPB over 4 hours. Recheck Potassium and Phosphorou s level 4 hours after replacemen t complete. Notify MD for K < 3.1 mEq/L or Phosphorou s < 1.6 mg/dL prior to replacemen t.*Use PO or NJ administra tion unless patient is first 12 hours post-op, active GI bleed, acute arrhythmia s, ischemic bowel or NPO. *DO NOT replace if patient is on dialysis, temperatur e < 35 Celsius, or serum creatinine > 2.0 mg/dL or GFR < 45 mL/min. Memoria l [facility] Epic potassium phosphates 15 mmol in sodium chloride 0.9 % 100 mL infusion potassium phosphates 15 mmol in sodium chloride 0.9 % 100 mL infusion 2023-04 09:24: 54 Yes 15mmol 15 mmol, Intravenou s, Administer over 4 Hours, As needed, PRN Abnormal Lab Result, For NON-ICU Patients Only., Starting on Sun02/26/24 at 0924, Potassium and Phosphorou s replacemen t:For K 3.5 - 3.9 mEq/L AND phosphorou s 2.0 - 2.4 mg/dL: Replace with Potassium Phosphate 15 mMol IVPB over 4 hours. For K 3.1 - 3.4 mEq/L AND phosphorou s 2.0 - 2.4 mg/dL: Replace with KCL 20 meq PO/NJ (or IVPB over 2 hours) followed by Potassium Phosphate 15 mMol IVPB over 4 hours. For K 3.1 - 3.9 mEq/L AND phosphorou s 1.6 - 1.9 mg/dL: Replace with Potassium Phosphate 30 mMol IVPB over 4 hours. Recheck Potassium and Phosphorou s level 4 hours after replacemen t complete. Notify MD for K < 3.1 mEq/L or Phosphorou s < 1.6 mg/dL prior to replacemen t.*Use PO or NJ administra tion unless patient is first 12 hours post-op, active GI bleed, acute arrhythmia s, ischemic bowel or NPO. *DO NOT replace if patient is on dialysis, temperatur e < 35 Celsius, or serum creatinine > 2.0 mg/dL or GFR < 45 mL/min. Maximum rate for peripheral administra tion 40 mL/hr, maximum rate for central line administra tion 100 mL/hr. Felipe London [facility] potassium & sodium phosphates (Phos-NaK) 280-160-250 MG packet 2 packet potassium & sodium phosphates (Phos-NaK) 280-160-250 MG packet 2 packet 2023-04 09:24: 54 Yes 2{packe t} 2 packet, Oral, As needed, Abnormal Lab Result, For NON-ICU Patients Only, Starting on Sun02/26/24 at 0924, Oral Phosphorou s replacemen t when K is 3.5 - 4.5 mEq/L:(If the K is < 3.5 mEq/L, refer to IVPB Potassium Phosphate orders for replacemen t)Evaluate Potassium, Phosphorou s, and Sodium level prior to replacemen t. For Phosphorou s 2 - 2.4 mg/dL and K 3.5 - 4.5 mEq/L: Replace with 2 packets PO x 1 dose For Phosphorou s 1.6 - 1.9 mg/dL and K 3.5 - 4.5 mEq/L: Replace with 2 packets PO every 4 hours x 2 doses Recheck Potassium and Phosphorou s level 4 hours after replacemen t.Notify MD if PO4 level is <1.6mg/dL prior to replacemen t.*Use PO or NJ administra tion unless patient is first 12 hours post-op, active GI bleed, acute arrhythmia s, ischemic bowel or NPO. *DO NOT replace if patient is on dialysis, temperatur e < 35 Celsius, or serum creatinine > 2.0 mg/dL or GFR < 45 mL/min. Felipe Bowden potassium chloride IVPB 10 mEq potassium chloride IVPB 10 mEq 2023-04 09:24: 54 Yes 10meq 10 mEq, Intravenou s, at 100 mL/hr, Administer over 1 Hours, As needed, Abnormal Lab Result, For NON-ICU Patients Only, Starting on Sun02/26/24 at 0924, Evaluate Potassium and Phosphorou s level prior to replacemen t.Potassiu m chloride Peripheral infusion concentrat ion = 0.1 mEq/mLAdmi nister each KCL 10 mEq IVPB dose over 1 hour. Potassium replacemen t; phosphorou s > 2.4 mg/dL or phosphorou s level not available: For K = 3.5 - 3.9 mEq/L: Replace with KCL 20 mEq IVPB over 2 hours.? Recheck Potassium with next scheduled lab. For K = 3.1 - 3.4 mEq/L: Replace with KCL 40 mEq IVPB over 4 hours.? Recheck Potassium 4 hours after replacemen t. Potassium and Phosphorou s IV Replacemen t (See Potassium Phosphate orders): For K = 3.5 - 3.9 mEq/L AND Phosphorou s 2 - 2.4 mg/dL:? Replace with Potassium Phosphate 15 mMol IVPB over 4 hours. For K = 3.1 - 3.4 mEq/L AND Phosphorou s 2 - 2.4 mg/dL: Replace with KCL 20 mEq? IVPB over 2 hours followed by Potassium Phosphate 15 mMol IVPB over 4 hours.? For K = 3.1 - 3.9 mEq/L AND Phosphorou s 1.6 - 1.9 mg/dL: Replace with Potassium Phosphate 30 mMol IVPB over 4 hours.? Recheck Potassium and Phosphorou s levels 4 hours after replacemen t complete. Notify MD for K < 3.1 mEq/L or Phosphorou s < 1.6 mg/dL prior to replacemen t.*Use PO or NJ administra tion unless patient is first 12 hours post-op, active GI bleed, acute arrhythmia s, ischemic bowel or NPO. *DO NOT replace if patient is on dialysis, temperatur e < 35 Celsius, or serum creatinine > 2.0 mg/dL or GFR < 45 mL/min. Felipe Bowden Potassium chloride solution 20 mEq Potassium chloride solution 20 mEq 2023-04 09:24: 54 Yes 20meq 20 mEq, Nasogastri c, As needed, Abnormal Lab Result, For NON-ICU Patients Only, Starting on Sun02/26/24 at 0924, Evaluate Potassium and Phosphorou s level prior to replacemen t. Potassium replacemen t; phosphorou s > 2.4 mg/dL or phosphorou s level not available: For K = 3.5 - 3.9 mEq/L: Replace with KCL 20 mEq.? Recheck Potassium with next scheduled lab. For K = 3.1 - 3.4 mEq/L: Replace with KCL 40 mEq.? Recheck Potassium 4 hours after replacemen t. Potassium and Phosphorou s Replacemen t (See Phosphate replacemen t orders):Fo r K = 3.5 - 4.5 mEq/L AND Phosphorou s 2 - 2.4 mg/dL:? Replace with 2 packets of Potassium phosphate/ sodium phosphate oral powder x 1 dose. For K = 3.5 - 4.5 mEq/L AND Phosphorou s 1.6 - 1.9 mg/dL:? Replace with 2 packets of Potassium phosphate/ sodium phosphate oral powder Q4H x 2 doses. For K = 3.1 - 3.4 mEq/L AND Phosphorou s 2 - 2.4 mg/dL: Replace with KCL 20 mEq PO/NJ AND Potassium Phosphate 15 mMol IVPB over 4 hours.? For K = 3.1 - 3.4 mEq/L AND Phosphorou s 1.6 - 1.9 mg/dL: Replace with Potassium Phosphate 30 mMol IVPB over 4 hours.? Recheck Potassium and Phosphorou s levels 4 hours after replacemen t complete. Notify MD for K < 3.1 mEq/L or Phosphorou s < 1.6 mg/dL prior to replacemen t. *Use PO or NJ administra tion unless patient is first 12 hours post-op, active GI bleed, acute arrhythmia s, ischemic bowel or NPO. *DO NOT replace if patient is on dialysis, temperatur e < 35 Celsius, or serum creatinine > 2.0 mg/dL or GFR < 45 mL/min. Felipe London Epic potassium chloride CR (Klor-Con M20) ER tablet 40 mEq potassium chloride CR (Klor-Con M20) ER tablet 40 mEq 2023-04 09:24: 54 Yes 40meq 40 mEq, Oral, As needed, Abnormal Lab Result, NON-ICU Patients Only, Starting on Sun02/26/24 at 0924, Evaluate Potassium and Phosphorou s level prior to replacemen t. Potassium replacemen t; phosphorou s > 2.4 mg/dL or phosphorou s level not available: For K = 3.5 - 3.9 mEq/L: Replace with KCL 20 mEq. Recheck Potassium with next scheduled lab. For K = 3.1 - 3.4 mEq/L: Replace with KCL 40 mEq.? Recheck Potassium 4 hours after replacemen t. Potassium and Phosphorou s Replacemen t: For K = 3.5 - 4.5 mEq/L AND Phosphorou s 2 - 2.4 mg/dL:? Replace with 2 packets of Potassium phosphate/ sodium phosphate oral powder x 1 dose. For K = 3.5 - 4.5 mEq/L AND Phosphorou s 1.6 - 1.9 mg/dL:? Replace with 2 packets of Potassium phosphate/ sodium phosphate oral powder Q4H x 2 doses. For K = 3.1 - 3.4 mEq/L AND Phosphorou s 2 - 2.4 mg/dL: Replace with KCL 20 mEq PO/NJ AND Potassium Phosphate 15 mMol IVPB over 4 hours. For K = 3.1 - 3.4 mEq/L AND Phosphorou s 1.6 - 1.9 mg/dL: Replace with Potassium Phosphate 30 mMol IVPB over 4 hours. Recheck Potassium and Phosphorou s levels 4 hours after replacemen t complete.N otify MD for K < 3.1 mEq/L or Phosphorou s < 1.6 mg/dL prior to replacemen t. *Use PO or NJ administra tion unless patient is first 12 hours post-op, active GI bleed, acute arrhythmia s, ischemic bowel or NPO. Do Not Crush the ER tablets. DO NOT replace if patient is on dialysis, temperatur e < 35 Celsius, or serum creatinine > 2.0 mg/dL or GFR < 45 mL/min. DO NOT CRUSH.? For patients able to take medication s orally or via feeding tube >/= 14 [place]zer[place], may dissolve each 20 mEq tablet in 4 oz of water.? Allow about 2 minutes for the tablets to disintegra te.? Stir before giving to prepare slurry and administer .? Please exclude patient's with feeding tube less than 14 Azeri (Dobhoff, J-tube, etc) and pediatric and patients. Do not crush or chew. Felipe London [facility] potassium chloride CR (Klor-Con M20) ER tablet 20 mEq potassium chloride CR (Klor-Con M20) ER tablet 20 mEq 2023-04 09:24: 54 Yes 20meq 20 mEq, Oral, As needed, Abnormal Lab Result, For NON-ICU Patients Only, Starting on Sun02/26/24 at 0924, Evaluate Potassium and Phosphorou s level prior to replacemen t. Potassium replacemen t; phosphorou s > 2.4 mg/dL or phosphorou s level not available: For K = 3.5 - 3.9 mEq/L: Replace with KCL 20 mEq. Recheck Potassium with next scheduled lab. For K = 3.1 - 3.4 mEq/L: Replace with KCL 40 mEq.? Recheck Potassium 4 hours after replacemen t. Potassium and Phosphorou s Replacemen t: For K = 3.5 - 4.5 mEq/L AND Phosphorou s 2 - 2.4 mg/dL:? Replace with 2 packets of Potassium phosphate/ sodium phosphate oral powder x 1 dose. For K = 3.5 - 4.5 mEq/L AND Phosphorou s 1.6 - 1.9 mg/dL:? Replace with 2 packets of Potassium phosphate/ sodium phosphate oral powder Q4H x 2 doses. For K = 3.1 - 3.4 mEq/L AND Phosphorou s 2 - 2.4 mg/dL: Replace with KCL 20 mEq PO/NJ AND Potassium Phosphate 15 mMol IVPB over 4 hours. For K = 3.1 - 3.4 mEq/L AND Phosphorou s 1.6 - 1.9 mg/dL: Replace with Potassium Phosphate 30 mMol IVPB over 4 hours. Recheck Potassium and Phosphorou s levels 4 hours after replacemen t complete.N otify MD for K < 3.1 mEq/L or Phosphorou s < 1.6 mg/dL prior to replacemen t. *Use PO or NJ administra tion unless patient is first 12 hours post-op, active GI bleed, acute arrhythmia s, ischemic bowel or NPO. Do Not Crush the ER tablets. DO NOT replace if patient is on dialysis, temperatur e < 35 Celsius, or serum creatinine > 2.0 mg/dL or GFR < 45 mL/min. DO NOT CRUSH.? For patients able to take medication s orally or via feeding tube >/= 14 Azeri, may dissolve each 20 mEq tablet in 4 oz of water.? Allow about 2 minutes for the tablets to disintegra te.? Stir before giving to prepare slurry and administer .? Please exclude patient's with feeding tube less than 14 Azeri (Dobhoff, J-tube, etc) and pediatric and patients. Do not crush or chew. Felipe Bowden glucagon injection 1 mg glucagon injection 1 mg 2023-04 09:22: 28 Yes 1mg 1 mg, Intramuscu lar, As needed, For BG < 70 mg/dL if no IV access and patient is either Unconsciou s, unable to swallow or npo, Starting on Sun02/26/24 at 0922, For BG < 70 mg/dL if no IV access and patient is either Unconsciou s, unable to swallow or npo and notify MD. Felipe London Epic dextrose 50 % solution 25 g dextrose 50 % solution 25 g 2023-04 09:22: 28 Yes 25g 25 g, Intravenou s, As needed, other, if Blood Glucose </= 50 mg/dL, Starting on Sun02/26/24 at 0922, If BG </=50 mg/dL, give 50 mL of D50W IV push STAT and notify MD. Felipe Bowden dextrose 50 % solution 12.5 g dextrose 50 % solution 12.5 g 2023-04 09:22: 28 Yes 12.5g 12.5 g, Intravenou s, As needed, low blood sugar, if Blood Glucose 51- 69 mg/dL, Starting on Sun02/26/24 at 0922, For BG 51-69 mg/dL and patient UNCONSCIOU S OR UNABLE TO SWALLOW OR NPO: Give 25 mL of D50W IV push and notify MD. Felipe Bowden sodium chloride (NS) 0.9 % flush 10 mL sodium chloride (NS) 0.9 % flush 10 mL 2023-04 09:22: 28 Yes 10mL 10 mL, Intravenou s, As needed, line care, Line Flush, Starting on Sun02/26/24 at 0922 Felipe London Epic sodium chloride 0.9 % infusion sodium chloride 0.9 % infusion 2023-04 06:30: 00 02-26 18:29 :00 No 75mL/h [Order 1 Start] Name: sodium chloride 0.9 % infusion Signed Summary: 75 mL/hr, Intravenou s, Administer over 36 Hours, Continuous , Starting on Sun02/26/24 at 0630, For 36 hours, Preprocedu re, Ejection Fraction (EF) > 40 %. Call Cardiology attending prior to infusion if patient has Ejection Fraction (EF) < or = 40% or Acute Heart Failure on this admission. [Order 1 End] [Order 2 Start] Name: sodium chloride 0.9 % bolus 250 mL Signed Summary: 250 mL, Intravenou s, at 250 mL/hr, Administer over 1 Hours, Once, On Sun02/27/24 at 1830, For 1 dose, Preprocedu re, Transfer And P[employer]ph[employer] Operator (Ejection Fraction > 40 %) PRE-Proced ure BOLUS to be started in Transfer And Pumphouse Operator PRIOR to procedure. Call Cardiology attending prior to infusion for a more rapid bolus infusion, if patient has EF < or = 40 % or Acute Heart Failure on this admission. [Order 2 End] Felipe Bowden Morphine Sulfate 60 MG oral Capsule 24 Hour Sustained Release 2023-04 13:59: 05 Yes 1{capsu le} [id number] 3D Take 1 capsule by mouth 3 times daily as needed Kelsey ayala Aspirin (Aspirin 81) 81 MG oral Tablet Delayed Response 2023-04 13:59: 05 Yes 81mg QD Take 1 tablet (81 mg total) by mouth daily. Kelsey ayala Lisinopril 5 MG oral Tablet 2023-04 13:59: 05 Yes 87 5mg QD Take 1 tablet (5 mg total) by mouth daily. Indication s: High Blood Pressure Kelsey ayala Morphine Sulfate 60 MG oral Capsule 24 Hour Sustained Release 2023-04 13:33: 01 Yes 1{capsu le} [id number] 3D Take 1 capsule by mouth 3 times daily as needed Kelsey ayala Aspirin (Aspirin 81) 81 MG oral Tablet Delayed Response 2023-04 13:33: 01 Yes 81mg QD Take 1 tablet (81 mg total) by mouth daily. Kelsey ayala Lisinopril 5 MG oral Tablet 2023-04 13:33: 01 Yes 87 5mg QD Take 1 tablet (5 mg total) by mouth daily. Indication s: High Blood Pressure Kelsey ayala Triamcinolo ne Acetonide 0.1 % apply externally Cream 2023-04 00:00: 00 02-21 05:59 :00 No [id number] Apply to venous stasis dermatitis once daily for seven days. Kelsey ayala Trazodone HCl 50 MG oral Tablet 2023-04 0 00:00: 00 Yes [id number] 50mg QD Take 1 tablet (50 mg total) by mouth nightly. Kelsey ayala Duloxetine HCl [address] Particles 2023-04 0- 00:00: 00 06-06 00:00 :00 No [id number] 20mg QD Take 1 capsule (20 mg total) by mouth daily. Kelsey ayala Morphine Sulfate 60 MG oral Capsule 24 Hour Sustained Release 12-23 13:28: 24 Yes 1{capsu le} [id number] 3D Take 1 capsule by mouth 3 times daily as needed Kelsey ayala Aspirin (Aspirin 81) 81 MG oral Tablet Delayed Response 12-23 13:28: 24 Yes 81mg QD Take 1 tablet (81 mg total) by mouth daily. Kelsey ayala Lisinopril 5 MG oral Tablet 12-23 13:28: 24 Yes 87 5mg QD Take 1 tablet (5 mg total) by mouth daily. Indication s: High Blood Pressure Kelsey ayala Lisinopril 5 MG oral Tablet 12-06 10:34: 54 Yes 87 5mg QD Take 1 tablet (5 mg total) by mouth daily. Indication s: High Blood Pressure Disorder Kelsey ayala Morphine Sulfate 60 MG oral Capsule 24 Hour Sustained Release 11-19 15:50: 45 Yes 1{capsu le} [id number] 3D Take 1 capsule by mouth 3 times daily as needed Kelsey ayala Aspirin (Aspirin 81) 81 MG oral Tablet Delayed Response 11-19 15:50: 45 Yes 81mg QD Take 1 tablet (81 mg total) by mouth daily. Kelsey ayala Metformin HCl 500 MG oral Tablet 11-15 00:00: 00 Yes [id number] 500mg QD Take 1 tablet (500 mg total) by mouth daily (with breakfast) . Kelsey ayala Furosemide 40 MG oral Tablet 11-15 00:00: 00 Yes [id number] 40mg QD Take 1 tablet (40 mg total) by mouth daily as needed. Kelsey ayala Metoprolol Succinate 100 MG oral TABLET SR 24 HR 11-15 00:00: 00 Yes [id number] 100mg QD Take 1 tablet (100 mg total) by mouth daily. Kelsey ayala Lisinopril 10 MG oral Tablet 11-15 00:00: 00 12-06 00:00 :00 No [id number] 10mg QD Take 1 tablet (10 mg total) by mouth daily. Kelsey ayala Morphine Sulfate 60 MG oral Capsule 24 Hour Sustained Release 09-18 10:13: 34 Yes 1{capsu le} Q.[id number] 3D Take 1 capsule by mouth 3 times daily as needed Kelsey ayala Aspirin (Aspirin 81) 81 MG oral Tablet Delayed Response 09-18 10:13: 34 Yes 81mg Take 1 tablet (81 mg total) by mouth daily. Kelsey ayala Duloxetine HCl [address] Particles 09-18 00:00: 00 Yes [id number] 20mg QD TAKE 1 CAPSULE BY MOUTH DAILY. Kelsey ayala Trazodone HCl 50 MG oral Tablet 09-18 00:00: 00 Yes [id number] 50mg QD TAKE 1 TABLET BY MOUTH NIGHTLY. Kelsey ayala Rivaroxaban (Xarelto) 2.5 MG oral Tablet 08-21 00:00: 00 Yes 2.5mg Q.5D TAKE ONE TABLET BY MOUTH 2 TIMES DAILY. Kelsey ayala Metoprolol Succinate 100 MG oral TABLET SR 24 HR 08-21 00:00: 00 Yes [id number] 100mg Take 1 tablet (100 mg total) by mouth daily. Kelsey ayala Lisinopril 10 MG oral Tablet 08-21 00:00: 00 Yes [id number] 10mg Take 1 tablet (10 mg total) by mouth daily. Kelsey ayala Furosemide 40 MG oral Tablet 08-21 00:00: 00 Yes [id number] 40mg QD Take 1 tablet (40 mg total) by mouth daily as needed. Kelsey ayala Duricef 1 g oral tablet 08-17 14:55: 00 Yes 1,000 mg = 1 tab, PO, Q12H, X 10 day, # 20 tab, 0 Refill(s), Pharmacy: [facility], 165.1, cm, 08/16/23 20:15:00 CDT, Height, 55, kg, 08/16/23 20:15:00 CDT, Weight Felipe [place] Morphine Sulfate Extended Release (MS Contin) 08-16 01:40: 00 Yes 60 mg, PO, Q8H, 0 Refill(s) Felipe [place] Santyl 250 UNIT/GM ointment 08-02 00:00: 00 09-02 04:59 :00 No [id number] QD Apply topically 1 (one) time each day. Left yadav wound [id number]. 2cm [facility] zinc oxide ([employer] Zinc Oxide) 20 % ointment 08-02 00:00: 00 09-02 04:59 :00 No [id number] Apply topically if needed for irritation . [facility] doxycycline (Vibramycin ) 100 MG capsule 08-02 00:00: 00 08-17 04:59 :00 No [id number] 100mg Q.5D Take 1 capsule (100 mg total) by mouth in the morning and 1 capsule (100 mg total) in the evening. Do all this for 14 days. Take with at least 8 ounces (large glass) of water, do not lie down for 30 minutes after. [facility] Pravastatin Sodium 80 MG oral Tablet 07-25 00:00: 00 Yes [id number] 80mg QD Take 1 tablet (80 mg total) by mouth nightly. Kelsey ayala aspirin 81 mg oral capsule 07-15 14:46: 00 Yes 81 mg = 1 cap, PO, Daily, 0 Refill(s) Felipe [place] gabapentin 100 mg oral capsule 07-15 14:45: 00 Yes 100 mg = 1 cap, PO, TID, # 90 cap, 1 Refill(s) Felipe [place] pravastatin 80 mg oral tablet 07-15 14:45: 00 Yes 80 mg = 1 tab, PO, Bedtime, # 30 tab, 0 Refill(s) Felipe [place] aspirin ([place]) 81 MG capsule aspirin ([place]) 81 MG capsule 07-15 00:00: 00 Yes 81mg 81 mg. Felipe London Epic Morphine Sulfate 60 MG oral Capsule 24 Hour Sustained Release 06-28 11:24: 35 Yes 1{capsu le} Q.[id number] 3D Take 1 capsule by mouth 3 times daily as needed Kelsey ayala Aspirin (Aspirin 81) 81 MG oral Tablet Delayed Response 06-28 11:24: 35 Yes 81mg Take 1 tablet (81 mg total) by mouth daily. Kelsey ayala Multiple Vitamins-Mi nerals (Multivitam in Adults 50+) oral Tablet 06-28 00:00: 00 Yes [id number] 1{tbl} QD Take 1 tablet by mouth daily. Kelsey ayala Lisinopril 10 MG oral Tablet 06-28 00:00: 00 Yes [id number] 5mg Take 0.5 tablets (5 mg total) by mouth daily. Kelsey ayala aspirin 81 MG EC tablet 06-27 08:25: 39 Yes 81mg Take 81 mg by mouth. [facility] morphine ER (Vernell) 60 MG 24 hr capsule 06-27 08:25: 39 Yes 1{capsu le} Q.[id number] 3D Take 1 capsule by mouth 3 (three) times a day if needed. [facility] Cephalexin 500 MG oral Capsule 06-27 00:00: 00 07-08 04:59 :00 No 500mg Take 1 capsule (500 mg total) by mouth 3 times daily. Kelsey ayala Duloxetine HCl [address] Particles 06-20 00:00: 00 09-18 00:00 :00 No [id number] 20mg Take 1 capsule (20 mg total) by mouth daily. Kesley ayala Trazodone HCl 50 MG oral Tablet 06-20 00:00: 00 09-18 00:00 :00 No [id number] 50mg Take 1 tablet (50 mg total) by mouth nightly. Kelsey ayala Metoprolol Succinate 100 MG oral TABLET SR 24 HR 05-31 00:00: 00 Yes [id number] 100mg Take 1 tablet (100 mg total) by mouth daily. Kelsey ayala Furosemide 40 MG oral Tablet 05-31 00:00: 00 Yes [id number] 40mg QD Take 1 tablet (40 mg total) by mouth daily as needed. Kelsey ayala Lisinopril 10 MG oral Tablet 05-31 00:00: 00 06-28 00:00 :00 No [id number] 10mg Take 1 tablet (10 mg total) by mouth daily. Kelsey ayala MORPHINE SULFATE (MS CONTIN ORAL) 05-30 17:15: 02 Yes Take 100 mg in am, 60 mg at noon, 60 mg in pm [facility] tiZANidine (ZANAFLEX) 4 mg capsule 05-30 17:15: 02 Yes 4mg Take 4 mg by mouth daily. [facility] metoprolol succinate XL 100 mg 24 hr tablet 05-30 17:15: 02 Yes 100mg Take 100 mg by mouth daily. [facility] pravastatin 40 mg tablet 05-30 17:15: 02 Yes 40mg Take 40 mg by mouth at bedtime. [facility] phosphorus (K PHOS NEUTRAL) tablet 1 tablet 05-30 14:00: 00 13:59 :00 No 250mg 1 tablet (250 mg), Oral, QID, 4 doses, First dose on Sun05/30/23 at 0800, Last dose on Sun05/30/23 at 2000, Routine [facility] morpHINE (2 mg/mL) injection 2 mg 05-30 04:36: 45 05-30 16:13 :47 No 2mg 2 mg, Slow IV Push, Q3HPRN, Starting on Sun05/29/23 at 2236, Until Sun05/30/23 at 1013, Routine, Pain (scale 7-10) [facility] Potassium Bicarb-Citr ic Acid (EFFER-K) effervescen t tablet 40 mEq 05-30 02:00: 00 05-30 14:23 :00 No 40meq 40 mEq, Oral, BID, 2 doses, First dose (after last reorder) on Sun05/29/23 at 2000, Last dose on Sun05/30/23 at 0800, Routine [facility] morpHINE (2 mg/mL) injection 2 mg 05-30 00:00: 00 05-29 23:46 :00 No 2mg 2 mg, Slow IV Push, ONCE, 1 dose, On Sun05/29/23 at 1800, Routine [facility] Vancomycin 750 mg in NaCl 0.9% (NS) 250 mL VIAL-MATE 05-29 14:15: 00 06-04 14:14 :00 No 15mg/kg 750 mg (rounded from 862.5 mg = 15 mg/kg ?57.5 kg), IV Piggyback, Q12H ABX, 14 doses, First dose on Sun05/29/23 at 0815, Last dose on Sun06/04/23 at 2015, Administer over 60 Minutes, 250 mL
Reas on for Anti-Infec tive: Documented Infection< br>Documen shalonda Infection Site: Blood
D uration of Therapy: 7 days [facility] lisinopriL (PRINIVIL,Z ESTRIL) tablet 10 mg 05-28 15:00: 00 Yes 10mg 10 mg, Oral, DAILY, First dose on Sun05/28/23 at 0900, Until Discontinu ed, Routine [facility] metoprolol succinate XL (TOPROL XL) tablet 100 mg 05-28 15:00: 00 Yes 100mg 100 mg, Oral, DAILY, First dose on Sun05/28/23 at 0900, Until Discontinu ed, Routine [facility] sulfur hexafluorid e microsphr (LUMASON) injection 5 mL 05-28 14:00: 00 05-28 14:00 :00 No [id number] 5mL 5 mL, Intravenou s, ONCE, 1 dose, On Sun05/28/23 at 0800, Routine [facility] Potassium Bicarb-Citr ic Acid (EFFER-K) effervescen t tablet 40 mEq 05-28 12:00: 00 05-28 11:38 :00 No 40meq 40 mEq, Oral, ONCE, 1 dose, On Sun05/28/23 at 0600, Routine [facility] pravastatin (PRAVACHOL) tablet 40 mg 05-28 03:00: 00 Yes 40mg 40 mg, Oral, QHS, First dose on Sun05/27/23 at 2100, Until Discontinu ed, Routine [facility] pantoprazol e (PROTONIX) injection 40 mg 05-27 21:00: 00 05-31 20:59 :00 No 40mg 40 mg, Slow IV Push, Q24H, 5 doses, First dose on Sun05/27/23 at 1500, Last dose on Sun05/31/23 at 1500 [facility] acetaminoph en (TYLENOL) tablet 1,000 mg 05-27 20:00: 00 Yes 1000mg 1,000 mg, Oral, TID, First dose on Sun05/27/23 at 1400, Until Discontinu ed, Routine [facility] lactated ringers IV infusion 1,000 mL 05-27 20:00: 00 05-30 16:13 :47 No 1000mL at 50 mL/hr, 1,000 mL, IV Infusion, CONTINUOUS , Starting on Sun05/27/23 at 1400, Until Sun05/30/23 at 1013, Routine [facility] ondansetron (ZOFRAN (PF)) injection 4 mg 05-27 19:55: 01 Yes 4mg 4 mg, Slow IV Push, Q6HPRN, Starting on Sun05/27/23 at 1355, Until Discontinu ed, Routine, Nausea and Vomiting (N/V) [facility] morpHINE (2 mg/mL) injection 2 mg 05-27 19:54: 57 05-29 16:40 :07 No 2mg 2 mg, Slow IV Push, Q4HPRN, Starting on Sun05/27/23 at 1354, Until Sun05/29/23 at 1040, Routine, Pain (scale 7-10), Pain unrelieved by scheduled analgesics [facility] traMADoL (ULTRAM) tablet 50 mg 05-27 19:54: 53 Yes 50mg 50 mg, Oral, Q6HPRN, Starting on Sun05/27/23 at 1354, Until Discontinu ed, Routine, Pain (scale 4-6) [facility] NaCl 0.9% (NS) bolus infusion 500 mL 05-27 19:45: 00 05-27 20:53 :00 No 500mL at 999 mL/hr, 500 mL, IV Piggyback, ONCE, 1 dose, On Sun05/27/23 at 1345, STAT [facility] NaCl 0.9% (NS) bolus infusion 1,000 mL 05-27 15:45: 00 05-27 15:56 :00 No 1000mL at 999 mL/hr, 1,000 mL, IV Infusion, ONCE, 1 dose, On Sun05/27/23 at 0945, STAT [facility] piperacilli n-tazobacta m (ZOSYN) 2.25 g in NaCl 0.9% (NS) 100 mL MINI-BAG 05-27 14:45: 00 05-27 15:56 :00 No 2.25g 2.25 g, IV Piggyback, ONCE, 1 dose, On Sun05/27/23 at 0900, Administer over 30 Minutes, 100 mL
Reas on for Anti-Infec tive: Empiric Therapy for Suspected Infection< br>Empiric Therapy Site: Abdominal< br>Duratio n of therapy: Once (ED) [facility] NaCl 0.9% (NS) bolus infusion 500 mL 05-27 13:15: 00 05-27 15:32 :00 No 500mL at 999 mL/hr, 500 mL, IV Infusion, ONCE, 1 dose, On Sun05/27/23 at 0715, STAT [facility] gabapentin 100 mg oral capsule 05-25 19:16: 00 Yes 100 mg = 1 cap, PO, Q8H, # 90 cap, 0 Refill(s), Pharmacy: [facility], 165.1, cm, 05/22/23 6:48:00 [employer], Height, 54.95, kg, 05/22/23 6:48:00 [employer], Weight Felipe [place] aspirin 81 mg tablet, enteric coated 05-25 17:43: 00 Yes 81 mg = 1 tab, PO, Daily, # 30 tab, 0 Refill(s), Pharmacy: [facility], 165.1, cm, 05/22/23 6:48:00 [employer]PER[employer], Height, 54.95, kg, 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 Kelsey ayala trazodone 50 mg oral tablet 05-21 17:51: 00 Yes 50 mg = 1 tab, PO, Bedtime, # 30 tab, 1 Refill(s) Elierandreia lucy [place] metoprolol succinate 100 mg oral capsule, extended release 05-21 17:50: 00 Yes 100 mg = 1 cap, PO, Daily, 0 Refill(s) Elierandreia lucy [place] morphine 60 mg/12 to 24 hr oral capsule, extended release 05-21 17:50: 00 Yes 60 mg = 1 cap, PO, Q12H, 0 Refill(s) Elierandreia lucy [place] pravastatin 40 mg oral tablet 05-21 17:50: 00 Yes 40 mg = 1 tab, PO, Bedtime, # 30 tab, 0 Refill(s) Elierandreia lucy [place] Xarelto 2.5 mg oral tablet 05-21 17:50: 00 Yes = 15 mL/min Elierandreia lucy [place] Santyl 250 units/g topical ointment 05-21 17:49: 00 Yes 1 appl, TOP, Daily, # 15 gm, 0 Refill(s) Elierandreia lucy [place] DULoxetine 20 mg oral delayed release capsule 05-21 17:49: 00 Yes 20 mg = 1 cap, PO, Daily, # 30 cap, 0 Refill(s) Elierandreia lucy Surya furosemide 40 mg oral tablet 05-21 17:49: 00 Yes 40 mg = 1 tab, PO, Daily, # 30 tab, 0 Refill(s) Felipe lucy Surya lisinopril 10 mg oral tablet 05-21 17:49: 00 Yes 10 mg = 1 tab, PO, Daily, # 30 tab, 0 Refill(s) Felipe lucy Surya metFORMIN 05-21 17:49: 00 Yes 500 mg, PO, Daily, 0 Refill(s) Elierandreia lucy [place] collagenase (Santyl) 250 UNIT/GM ointment collagenase (Santyl) 250 UNIT/GM ointment 05-21 00:00: 00 Yes 1 appl, TOP, Daily, # 15 gm, 0 Refill(s) Felipe London Dennise furosemide (Lasix) 40 MG tablet furosemide (Lasix) 40 MG tablet 05-21 00:00: 00 Yes 40mg 40 mg = 1 tab, PO, Daily, # 30 tab, 0 Refill(s) Elierandreia lucy [place] Dennise lisinopril 10 MG tablet lisinopril 10 MG tablet 05-21 00:00: 00 Yes 10mg 10 mg = 1 tab, PO, Daily, # 30 tab, 0 Refill(s) Felipe [place] Dennise metoprolol succinate XL (Kapspargo Sprinkle) 100 MG 24 hr capsule metoprolol succinate XL (Kapspargo Sprinkle) 100 MG 24 hr capsule 05-21 00:00: 00 Yes 100mg 100 mg = 1 cap, PO, Daily, 0 Refill(s) Felipe Bowden pravastatin (Pravachol) 40 MG tablet pravastatin (Pravachol) 40 MG tablet 05-21 00:00: 00 Yes 40mg 40 mg = 1 tab, PO, Bedtime, # 30 tab, 0 Refill(s) Felipe [facility] rivaroxaban (Xarelto) 2.5 MG tablet rivaroxaban (Xarelto) 2.5 MG tablet 05-21 00:00: 00 Yes 2.5mg 2.5 mg, PO, Q12H, tab, 0 Refill(s), CrCl > = 15 mL/min Felipe Bowden traZODone (Desyrel) 50 MG tablet traZODone (Desyrel) 50 MG tablet 05-21 00:00: 00 Yes 50mg 50 mg = 1 tab, PO, Bedtime, # 30 tab, 1 Refill(s) Elierandreia lucy London [facility] METFORMIN & DIET MANAGE PROD PO METFORMIN & DIET MANAGE PROD PO 05-21 00:00: 00 Yes 500mg 500 mg. Felipe London [facility] pravastatin (Pravachol) 80 MG tablet 05-21 00:00: 00 Yes 80mg Take 80 mg by mouth. [facility] Collagenase (Santyl) 250 UNIT/GM apply externally Ointment 05-10 00:00: 00 Yes [id number] QD Apply 1 applicatio n. topically daily. Kelsey ayala Xarelto 2.5 MG tablet 04-23 00:00: 00 Yes 2.5mg Take 2.5 mg by mouth. [facility] Morphine Sulfate 60 MG oral Capsule 24 Hour Sustained Release 04-10 14:58: 21 Yes 1{capsu le} Q.87188135 [id number] 3D Take 1 capsule by mouth 3 times daily as needed Kelsey ayala Aspirin (Aspirin 81) 81 MG oral Tablet Delayed Response 04-10 14:58: 21 Yes 81mg Take 1 tablet (81 mg total) by mouth daily. Kelsey ayala Aspirin (Aspirin 81) 81 MG oral Tablet Delayed Response 04-03 14:48: 20 Yes 81mg Take 1 tablet (81 mg total) by mouth daily. Kelsey ayala Morphine Sulfate 60 MG oral Capsule 24 Hour Sustained Release 04-03 14:09: 46 Yes 1{capsu le} Q.[id number] 3D Take 1 capsule by mouth 3 times daily as needed Kelsey ayala Trazodone HCl 50 MG oral Tablet 2022-04 00:00: 00 Yes [id number] 50mg Take 1 tablet (50 mg total) by mouth nightly. Kelsey ayala Collagenase (Santyl) 250 UNIT/GM apply externally Ointment 2022-04 00:00: 00 Yes [id number] Apply 1 applicatio n. topically daily. Kelsey ayala Duloxetine HCl [address] Particles 2022-04 00:00: 00 Yes [id number] 20mg Take 1 capsule (20 mg total) by mouth daily. Kelsey ayala Morphine Sulfate 60 MG oral Capsule 24 Hour Sustained Release 2022-04 14:21: 28 Yes 1{capsu le} Q.78387062 [id number] 3D Take 1 capsule by mouth 3 times daily as needed Kelsey ayala Furosemide 40 MG oral Tablet 2022-04 00:00: 00 Yes [id number] 40mg QD Take 1 tablet (40 mg total) by mouth daily as needed. Kelsey ayala Lisinopril 10 MG oral Tablet 2022-04 00:00: 00 Yes [id number] TAKE 1 TABLET BY MOUTH DAILY Kelsey ayala Metoprolol Succinate 100 MG oral TABLET SR 24 HR 2022-04 00:00: 00 Yes [id number] TAKE 1 TABLET BY MOUTH DAILY Kelsey ayala Pravastatin Sodium 40 MG oral Tablet 2022-04 00:00: 00 Yes [id number] TAKE 1 TABLET BY MOUTH DAILY Kelsey ayala Morphine Sulfate 60 MG oral Capsule 24 Hour Sustained Release 2022-04 14:41: 38 Yes 1{capsu le} Q.[id number] 3D Take 1 capsule by mouth 3 times daily as needed Kelsey ayala Morphine Sulfate 60 MG oral Capsule 24 Hour Sustained Release 2022-04 13:39: 24 Yes 1{capsu le} Q.[id number] [id number] 3D Take 1 capsule by mouth 3 times daily as needed Kelsey ayala Morphine Sulfate 60 MG oral Capsule 24 Hour Sustained Release 2022-04 09:55: 53 Yes 1{capsu le} Q.[id number] 3D Take 1 capsule by mouth 3 times daily as needed Kelsey ayala Triamcinolo ne Acetonide 0.1 % apply externally Cream 2022-04 00:00: 00 02-16 05:59 :00 No [id number] Apply to affected skin twice daily. Kelsey ayala Furosemide (LASIX) 20 MG oral Tablet 2022-04 00:00: 00 02-15 00:00 :00 No [id number] 20mg QD Take 1 tablet (20 mg total) by mouth daily as needed. Kelsey ayala Morphine Sulfate 60 MG oral Capsule 24 Hour Sustained Release 2022-04 09:23: 32 Yes 1{capsu le} Q.[id number] 3D Take 1 capsule by mouth 3 times daily as needed Kelsey ayala Collagenase 250 UNIT/GM apply externally Ointment 2022-04 00:00: 00 Yes [id number] Apply 1 applicatio n. topically daily. Kelsey ayala Metformin HCl 500 MG oral Tablet 2022-04 0 00:00: 00 Yes [id number] 3 500mg Take 1 tablet (500 mg total) by mouth daily (with breakfast) . Kelsey ayala Doxycycline Hyclate 100 MG oral Capsule 2022-04 00:00: 00 01-18 04:59 :00 No [id number] 100mg Take 1 capsule (100 mg total) by mouth 2 times daily for 7 days. Kelsey ayala Lisinopril 10 MG oral Tablet 11-08 00:00: 00 Yes [id number] TAKE 1 TABLET BY MOUTH DAILY Kelsey ayala Metoprolol Succinate 100 MG oral TABLET SR 24 HR 11-08 00:00: 00 Yes [id number] TAKE 1 TABLET BY MOUTH DAILY Kelsey ayala Pravastatin Sodium 40 MG oral Tablet 11-08 00:00: 00 Yes [id number] TAKE 1 TABLET BY MOUTH DAILY Kelsey ayala Trazodone HCl 50 MG oral Tablet 8-09 00:00: 00 Yes [id number] TAKE 1 TABLET BY MOUTH NIGHTLY Kelsey ayala Duloxetine HCl [address] Particles 6-14 00:00: 00 Yes [id number] 20mg Take 1 capsule (20 mg total) by mouth daily Kelsey ayala Morphine Sulfate 60 MG oral Capsule 24 Hour Sustained Release 1-09 14:13: 14 Yes 1{capsu le} Q.[id number] 3D Take 1 capsule by mouth 3 times daily as needed Kelsey ayala Duloxetine HCl (Cymbalta) [address] Particles 1- 00:00: 00 Yes [id number] 20mg Take 1 capsule (20 mg total) by mouth daily Kelsey ayala Amoxicillin -Pot Clavulanate 875-125 MG oral Tablet 1- 00:00: 00 Yes [id number] 4102 1{tbl} Take 1 tablet by mouth 2 times daily Kelsey ayala mupirocin (Bactroban) 2 % ointment - 00:00: 00 Yes Apply topically. [facility] Pravastatin Sodium 40 MG oral Tablet 2021-04 00:00: 00 Yes [id number] 40mg Take 1 tablet (40 mg total) by mouth daily Kelsey ayala Metoprolol Succinate 100 MG oral TABLET SR 24 HR 2021-04 00:00: 00 Yes [id number] 100mg Take 1 tablet (100 mg total) by mouth daily Kelsey ayala Lisinopril 10 MG oral Tablet 2021-04 00:00: 00 Yes [id number] 10mg Take 1 tablet (10 mg total) by mouth daily Kelsey ayala Trazodone HCl 50 MG oral Tablet 2021-04 00:00: 00 Yes [id number] 50mg Take 1 tablet (50 mg total) by mouth nightly Kelsey ayala BUPROPION HCL SR 150 MG OR TB12 7-06 00:00: 00 04-10 00:00 :00 No [id number] 150mg Take 1 tablet (150 mg total) by mouth 2 times daily Kelsey ayala Cephalexin (Keflex) 500 MG oral Capsule 11-04 00:00: 00 04-10 00:00 :00 No [id number] 500mg Take 1 capsule (500 mg total) by mouth 3 times daily Kelsey ayala MORPHINE SULFATE (MS CONTIN ORAL) 12-27 12:31: 42 Yes Take 100 mg in am, 60 mg at noon, 60 mg in pm [facility] tiZANidine (ZANAFLEX) 4 mg capsule 12-27 12:31: 42 Yes 4mg Take 4 mg by mouth daily. [facility] metoprolol succinate XL 100 mg 24 hr tablet 12-27 12:31: 42 Yes 100mg Take 100 mg by mouth daily. [facility] pravastatin 40 mg tablet 12-27 12:31: 42 Yes 40mg Take 40 mg by mouth at bedtime. [facility] lisinopril 10 mg tablet 12-27 00:00: 00 Yes [id number] 10mg Take 1 tablet by mouth daily. [facility] Immunizations Ordered Immunization Name Filled Immunization Name Date Status Comments Source Pneumococcal Vaccine, Polysaccharide 2022-04-10 00:00:00 Completed Kelsey Hannah Influenza Virus Vaccine, age 6 months and up 2022-01-09 00:00:00 Completed Kelsey Hannah Covid-19 Vaccine Moderna (Spikevax), Mrna-lnp, Dionisio Protein, Pf 2020-06-05 00:00:00 Completed Kelsey Hannah Covid-19 Vaccine Moderna (Spikevax), Mrna-lnp, Dionisio Protein, Pf 2020-05-08 00:00:00 Completed Kelsey Hannah Influenza Virus Vaccine, No Preserv, age 6 months and up 2018-12-27 00:00:00 Completed Kelsey Isaac External Tdap- (Boostrix, Adacel) 2015-11-18 00:00:00 Completed [facility] - External Tdap- (Boostrix, Adacel) Unknown Completed [facility] - External Influenza Virus Vaccine, No Preserv, age 6 months and up Unknown Completed [facility] - External Tdap- (Boostrix, Adacel) Unknown [facility] Influenza Virus Vaccine, No Preserv, age 6 months and up Unknown [facility] Covid-19 Vaccine Moderna (Spikevax), Mrna-lnp, Dionisio Protein, Pf Unknown Completed [facility] - External Pneumococcal Vaccine, Polysaccharide Unknown Completed [facility] - External Influenza Virus Vaccine, age 6 months and up Unknown Completed [facility] - External Influenza, Injectable, Mdck, Quadrivalent With Preservative Unknown Completed [facility] - External Influenza Virus Vaccine, High Dose, Age 65 And Up Unknown Completed [facility] - External Influenza Virus Vaccine, Quadrivalent, High Dose, Age 65 And Up Unknown Completed [facility] - External Td- Tetanus & Diphtheria Vaccine (age 7+ years) Unknown Completed [facility] - External FLUAD TRIVALENT PF Influenza Vaccine, Adjuvanted, Preserve Unknown Completed [facility] - External Covid-19 Vaccine Moderna (Spikevax), Mrna-lnp, Dionisio Protein, Pf Unknown Completed [facility] - External Pneumococcal Vaccine, Polysaccharide Unknown Completed [facility] - External Influenza Virus Vaccine, age 6 months and up Unknown Completed [facility] - External Tdap- (Boostrix, Adacel) Unknown Completed [facility] - External Influenza Virus Vaccine, No Preserv, age 6 months and up Unknown Completed [facility] - External Covid-19 Vaccine Moderna (Spikevax), Mrna-lnp, Dionisio Protein, Pf Unknown Completed [facility] - External Pneumococcal Vaccine, Polysaccharide Unknown Completed [facility] - External Influenza Virus Vaccine, age 6 months and up Unknown Completed [facility] - External Influenza, Injectable, Mdck, Quadrivalent With Preservative Unknown Completed [facility] - External Influenza Virus Vaccine, High Dose, Age 65 And Up Unknown Completed [facility] - External Influenza Virus Vaccine, Quadrivalent, High Dose, Age 65 And Up Unknown [facility] - External Td- Tetanus & Diphtheria Vaccine (age 7+ years) Unknown Com[facility] - External FLUAD TRIVALENT PF Influenza Vaccine, Adjuvanted, Preserve Unknown Completed [facility] - External Tdap- (Boostrix, Adacel) Unknown Completed [facility] - External Influenza Virus Vaccine, No Preserv, age 6 months and up Unknown Completed [facility] - External Covid-19 Vaccine Moderna (Spikevax), Mrna-lnp, Dionisio Protein, Pf Unknown Completed [facility] - External Pneumococcal Vaccine, Polysaccharide Unknown Completed [facility] - External Influenza Virus Vaccine, age 6 months and up Unknown Completed [facility] - External Influenza, Injectable, Mdck, Quadrivalent With Preservative Unknown Completed [facility] - External Influenza Virus Vaccine, High Dose, Age 65 And Up Unknown [facility] Influenza Virus Vaccine, Quadrivalent, High Dose, Age 65 And Up Unknown [facility] Td- Tetanus & Diphtheria Vaccine (age 7+ years) Unknown Com[facility] - External FLUAD TRIVALENT PF Influenza Vaccine, Adjuvanted, Preserve Unknown Completed [facility] - External Tdap- (Boostrix, Adacel) Unknown Completed [facility] - External Influenza Virus Vaccine, No Preserv, age 6 months and up Unknown Completed [facility] - External Covid-19 Vaccine Moderna (Spikevax), Mrna-lnp, Dionisio Protein, Pf Unknown Completed [facility] - External Pneumococcal Vaccine, Polysaccharide Unknown Completed [facility] - External Influenza Virus Vaccine, age 6 months and up Unknown Completed [facility] - External Tdap- (Boostrix, Adacel) Unknown Completed [facility] - External Influenza Virus Vaccine, No Preserv, age 6 months and up Unknown Completed [facility] - External Covid-19 Vaccine Moderna (Spikevax), Mrna-lnp, Dionisio Protein, Pf Unknown Completed [facility] - External Pneumococcal Vaccine, Polysaccharide Unknown Completed [facility] - External Influenza Virus Vaccine, age 6 months and up Unknown Completed [facility] - External Influenza, Injectable, Mdck, Quadrivalent With Preservative Unknown Completed [facility] - External Tdap- (Boostrix, Adacel) Unknown Completed [facility] - External Influenza Virus Vaccine, No Preserv, age 6 months and up Unknown Completed [facility] - External Covid-19 Vaccine Moderna (Spikevax), Mrna-lnp, Dionisio Protein, Pf Unknown Completed [facility] - External Pneumococcal Vaccine, Polysaccharide Unknown Completed [facility] - External Influenza Virus Vaccine, age 6 months and up [facility] Influ[facility], Injectable, Mdck, Quadrivalent With Preservative Unknown Completed [facility] - External Tdap- (Boostrix, Adacel) Unknown Completed [facility] - External Influenza Virus Vaccine, No Preserv, age 6 months and up Unknown Completed [facility] - External Covid-19 Vaccine Moderna (Spikevax), Mrna-lnp, Dionisio Protein, Pf Unknown Completed [facility] - External Pneumococcal Vaccine, Polysaccharide Unknown Completed [facility] - External Influenza Virus Vaccine, age 6 months and up Unknown Completed [facility] - External Influenza, Injectable, Mdck, Quadrivalent With Preservative Unknown Completed [facility] - External Tdap- (Boostrix, Adacel) Unknown Completed [facility] - External Influenza Virus Vaccine, No Preserv, age 6 months and up Unknown [facility] Covid-19 Vaccine Moderna (Spikevax), Mrna-lnp, Dionisio Protein, Pf Unknown Completed [facility] - External Pneumococcal Vaccine, Polysaccharide Unknown Completed [facility] - External Influenza Virus Vaccine, age 6 months and up Unknown Completed [facility] - External Influenza, Injectable, Mdck, Quadrivalent With Preservative Unknown Completed [facility] - External Tdap- (Boostrix, Adacel) Unknown Completed [facility] - External Influenza Virus Vaccine, No Preserv, age 6 months and up Unknown Completed [facility] - External Covid-19 Vaccine Moderna (Spikevax), Mrna-lnp, Dionisio Protein, Pf Unknown Completed [facility] - External Pneumococcal Vaccine, Polysaccharide Unknown Completed [facility] - External Influenza Virus Vaccine, age 6 months and up Unknown Completed [facility] - External Influenza, Injectable, Mdck, Quadrivalent With Preservative Unknown Completed [facility] - External Tdap- (Boostrix, Adacel) Unknown Completed [facility] - External Influenza Virus Vaccine, No Preserv, age 6 months and up Unknown Completed [facility] - External Covid-19 Vaccine Moderna (Spikevax), Mrna-lnp, Dionisio Protein, Pf Unknown Completed [facility] - External Pneumococcal Vaccine, Polysaccharide Unknown Completed [facility] - External Influenza Virus Vaccine, age 6 months and up Unknown Completed [facility] - External Influenza, Injectable, Mdck, Quadrivalent With Preservative Unknown Completed [facility] - External Tdap- (Boostrix, Adacel) Unknown Completed [facility] - External Influenza Virus Vaccine, No Preserv, age 6 months and up Unknown [facility] - External Covid-19 Vaccine Moderna (Spikevax), Mrna-lnp, Dionisio Protein, Pf Unknown Completed [facility] - External Pneumococcal Vaccine, Polysaccharide Unknown Completed [facility] - External Influenza Virus Vaccine, age 6 months and up Unknown Completed [facility] - External Influenza, Injectable, Mdck, Quadrivalent With Preservative Unknown Completed [facility] - External Influenza Virus Vaccine, High Dose, Age 65 And Up Unknown Completed [facility] - External Influenza Virus Vaccine, Quadrivalent, High Dose, Age 65 And Up Unknown Completed [facility] External Td- Tetanus & Diphtheria Vaccine (age 7+ years) Unknown Completed [facility] - External Tdap- (Boostrix, Adacel) Unknown Completed [facility] External Influenza Virus Vaccine, No Preserv, age 6 months and up Unknown Completed [facility] - External Covid-19 Vaccine Moderna (Spikevax), Mrna-lnp, Dionisio Protein, Pf Unknown Completed [facility] - External Pneumococcal Vaccine, Polysaccharide Unknown Completed [facility] - External Influenza Virus Vaccine, age 6 months and up Unknown Completed [facility] - External Influenza, Injectable, Mdck, Quadrivalent With Preservative Unknown Completed [facility] - External Influenza Virus Vaccine, High Dose, Age 65 And Up Unknown Completed [facility] - External Influenza Virus Vaccine, Quadrivalent, High Dose, Age 65 And Up Unknown Completed [facility] - External Td- Tetanus & Diphtheria Vaccine (age 7+ years) Unknown Completed [facility] - External Tdap- (Boostrix, Adacel) Unknown Completed [facility] - External Influenza Virus Vaccine, No Preserv, age 6 months and up Unknown [facility] - External Covid-19 Vaccine Moderna (Spikevax), Mrna-lnp, Dionisio Protein, Pf Unknown Completed [facility] - External Pneumococcal Vaccine, Polysaccharide Unknown Completed [facility] - External Influenza Virus Vaccine, age 6 months and up Unknown Completed [facility] - External Influenza, Injectable, Mdck, Quadrivalent With Preservative Unknown Completed [facility] - External Influenza Virus Vaccine, High Dose, Age 65 And Up Unknown Completed [facility] - External Influenza Virus Vaccine, Quadrivalent, High Dose, Age 65 And Up Unknown Com[facility] - External Td- Tetanus & Diphtheria Vaccine (age 7+ years) Unknown Completed [facility] - External Tdap- (Boostrix, Adacel) Unknown Completed [facility] - External Influenza Virus Vaccine, No Preserv, age 6 months and up Unknown Completed [facility] - External Covid-19 Vaccine Moderna (Spikevax), Mrna-lnp, Dionisio Protein, Pf Unknown Completed [facility] - External Pneumococcal Vaccine, Polysaccharide Unknown Completed [facility] - External Influenza Virus Vaccine, age 6 months and up Unknown Completed [facility] - External Influenza, Injectable, Mdck, Quadrivalent With Preservative Unknown Completed [facility] - External Influenza Virus Vaccine, High Dose, Age 65 And Up Unknown Completed [facility] - External Influenza Virus Vaccine, Quadrivalent, High Dose, Age 65 And Up Unknown Com[facility] - External Td- Tetanus & Diphtheria Vaccine (age 7+ years) Unknown Completed [facility] - External FLUAD TRIVALENT PF Influenza Vaccine, Adjuvanted, Preserve Unknown Completed [facility] - External Tdap- (Boostrix, Adacel) Unknown Completed [facility] - External Influenza Virus Vaccine, No Preserv, age 6 months and up Unknown Completed [facility] - External Covid-19 Vaccine Moderna (Spikevax), Mrna-lnp, Dionisio Protein, Pf Unknown Completed [facility] - External Pneumococcal Vaccine, Polysaccharide Unknown Completed [facility] - External Influenza Virus Vaccine, age 6 months and up Unknown Completed [facility] - External Influenza, Injectable, Mdck, Quadrivalent With Preservative Unknown Completed [facility] - External Influenza Virus Vaccine, High Dose, Age 65 And Up Unknown Completed [facility] - External Influenza Virus Vaccine, Quadrivalent, High Dose, Age 65 And Up Unknown Completed [facility] - External Td- Tetanus & Diphtheria Vaccine (age 7+ years) Unknown Completed [facility] - External FLUAD TRIVALENT PF Influenza Vaccine, Adjuvanted, Preserve Unknown Completed [facility] - External Tdap- (Boostrix, Adacel) Unknown Completed [facility] - External Influenza Virus Vaccine, No Preserv, age 6 months and up Unknown Completed [facility] - External Covid-19 Vaccine Moderna (Spikevax), Mrna-lnp, Dionisio Protein, Pf Unknown Completed [facility] - External Pneumococcal Vaccine, Polysaccharide Unknown Completed [facility] - External Influenza Virus Vaccine, age 6 months and up Unknown Completed [facility] - External Influenza, Injectable, Mdck, Quadrivalent With Preservative Unknown [facility] - [facility] Influenza Virus Vaccine, High Dose, Age 65 And Up Unknown Completed [facility] - External Influenza Virus Vaccine, Quadrivalent, High Dose, Age 65 And Up Unknown Completed [facility] - External Td- Tetanus & Diphtheria Vaccine (age 7+ years) Unknown Completed [facility] - External FLUAD TRIVALENT PF Influenza Vaccine, Adjuvanted, Preserve Unknown Completed [facility] - External Tdap- (Boostrix, Adacel) Unknown Completed [facility] - External Influenza Virus Vaccine, No Preserv, age 6 months and up Unknown Completed [facility] - External Covid-19 Vaccine Moderna (Spikevax), Mrna-lnp, Dionisio Protein, Pf Unknown Completed [facility] - External Pneumococcal Vaccine, Polysaccharide Unknown Completed [facility] - External Influenza Virus Vaccine, age 6 months and up Unknown Completed [facility] - External Influenza, Injectable, Mdck, Quadrivalent With Preservative Unknown Completed [facility] - External Influenza Virus Vaccine, High Dose, Age 65 And Up Unknown Completed [facility] - External Influenza Virus Vaccine, Quadrivalent, High Dose, Age 65 And Up Unknown Completed [facility] - External Td- Tetanus & Diphtheria Vaccine (age 7+ years) Unknown Com[facility] - External FLUAD TRIVALENT PF Influenza Vaccine, Adjuvanted, Preserve Unknown Com[facility] - External Tdap- (Boostrix, Adacel) Unknown Com[facility] - External Influenza Virus Vaccine, No Preserv, age 6 months and up Unknown Completed [facility] - External Covid-19 Vaccine Moderna (Spikevax), Mrna-lnp, Dionisio Protein, Pf Unknown Completed [facility] - External Pneumococcal Vaccine, Polysaccharide Unknown Completed [facility] - External Influenza Virus Vaccine, age 6 months and up Unknown Completed [facility] - External Influenza, Injectable, Mdck, Quadrivalent With Preservative Unknown Completed [facility] - External Influenza Virus Vaccine, High Dose, Age 65 And Up Unknown Completed [facility] - External Influenza Virus Vaccine, Quadrivalent, High Dose, Age 65 And Up Unknown Completed [facility] - External Td- Tetanus & Diphtheria Vaccine (age 7+ years) Unknown Completed [facility] - External FLUAD TRIVALENT PF Influenza Vaccine, Adjuvanted, Preserve Unknown Completed [facility] - External Tdap- (Boostrix, Adacel) Unknown Completed [facility] - External Influenza Virus Vaccine, No Preserv, age 6 months and up Unknown Completed [facility] - External Covid-19 Vaccine Moderna (Spikevax), Mrna-lnp, Dionisio Protein, Pf Unknown Completed [facility] - External Pneumococcal Vaccine, Polysaccharide Unknown Completed [facility] - External Influenza Virus Vaccine, age 6 months and up Unknown Completed [facility] - External Influenza, Injectable, Mdck, Quadrivalent With Preservative Unknown Completed [facility] - External Influenza Virus Vaccine, High Dose, Age 65 And Up Unknown Completed [facility] - External Influenza Virus Vaccine, Quadrivalent, High Dose, Age 65 And Up Unknown Completed [facility] - External Td- Tetanus & Diphtheria Vaccine (age 7+ years) Unknown Completed [facility] - External FLUAD TRIVALENT PF Influenza Vaccine, Adjuvanted, Preserve Unknown Completed [facility] - External Tdap- (Boostrix, Adacel) Unknown Completed [facility] - External Influenza Virus Vaccine, No Preserv, age 6 months and up Unknown Completed [facility] - External Covid-19 Vaccine Moderna (Spikevax), Mrna-lnp, Dionisio Protein, Pf Unknown Completed [facility] - External Pneumococcal Vaccine, Polysaccharide Unknown Completed [facility] - External Influenza Virus Vaccine, age 6 months and up Unknown Completed [facility] - External Influenza, Injectable, Mdck, Quadrivalent With Preservative Unknown Completed [facility] - External Influenza Virus Vaccine, High Dose, Age 65 And Up Unknown Completed [facility] - External Influenza Virus Vaccine, Quadrivalent, High Dose, Age 65 And Up Unknown Completed [facility] - External Td- Tetanus & Diphtheria Vaccine (age 7+ years) Unknown Completed [facility] - External FLUAD TRIVALENT PF Influenza Vaccine, Adjuvanted, Preserve Unknown Completed [facility] - External Tdap- (Boostrix, Adacel) Unknown Completed [facility] - External Influenza Virus Vaccine, No Preserv, age 6 months and up Unknown Completed [facility] - External Covid-19 Vaccine Moderna (Spikevax), Mrna-lnp, Dionisio Protein, Pf Unknown Completed [facility] - External Pneumococcal Vaccine, Polysaccharide Unknown Completed [facility] - External Influenza Virus Vaccine, age 6 months and up Unknown Completed [facility] - External Influenza, Injectable, Mdck, Quadrivalent With Preservative Unknown Completed [facility] - External Influenza Virus Vaccine, High Dose, Age 65 And Up Unknown Completed [facility] - External Influenza Virus Vaccine, Quadrivalent, High Dose, Age 65 And Up Unknown Completed [facility] - External Td- Tetanus & Diphtheria Vaccine (age 7+ years) Unknown Completed [facility] - External FLUAD TRIVALENT PF Influenza Vaccine, Adjuvanted, Preserve Unknown Completed [facility] - External Tdap- (Boostrix, Adacel) Unknown Completed [facility] - External Influenza Virus Vaccine, No Preserv, age 6 months and up Unknown Completed [facility] - External Covid-19 Vaccine Moderna (Spikevax), Mrna-lnp, Dionisio Protein, Pf Unknown Completed [facility] - External Pneumococcal Vaccine, Polysaccharide Unknown Completed [facility] - External Influenza Virus Vaccine, age 6 months and up Unknown Completed [facility] - External Influenza, Injectable, Mdck, Quadrivalent With Preservative Unknown Completed [facility] - External Influenza Virus Vaccine, High Dose, Age 65 And Up Unknown Completed [facility] - External Influenza Virus Vaccine, Quadrivalent, High Dose, Age 65 And Up Unknown [facility] T[facility]- Tetanus & Diphtheria Vaccine (age 7+ years) Unknown Completed [facility] - External FLUAD TRIVALENT PF Influenza Vaccine, Adjuvanted, Preserve Unknown Completed [facility] Tdap- (Boostrix, Adacel) Unknown Completed [facility] External Influenza Virus Vaccine, No Preserv, age 6 months and up Unknown Completed [facility] External Covid-19 Vaccine Moderna (Spikevax), Mrna-lnp, Dionisio Protein, Pf Unknown Completed [facility] External Pneumococcal Vaccine, Polysaccharide Unknown Completed [facility] - External Influenza Virus Vaccine, age 6 months and up Unknown Completed [facility] External Influenza, Injectable, Mdck, Quadrivalent With Preservative Unknown Completed [facility] - External Influenza Virus Vaccine, High Dose, Age 65 And Up Unknown Completed [facility] External Influenza Virus Vaccine, Quadrivalent, High Dose, Age 65 And Up Unknown Completed [facility] External Td- Tetanus & Diphtheria Vaccine (age 7+ years) Unknown Completed [facility] - External FLUAD TRIVALENT PF Influenza Vaccine, Adjuvanted, Preserve Unknown Completed [facility] External influenza virus vaccine, inactivated Unknown Completed [facility] [place] influenza virus vaccine, inactivated Unknown Completed [facility] influenza virus vaccine, inactivated Unknown Completed [facility] Influenza Virus Vaccine Quad .5 mL IM 6+ MO (FLUZONE/FLULAVAL/FL UARIX) Unknown Completed [facility] SARS-COV-2 COVID-19 MODERNA 12+ YRS VACCINE Unknown Completed [facility] TD Pres-Free Unknown Completed [facility] Influenza Virus Vaccine Quad .5 mL IM 6+ MO (FLUZONE/FLULAVAL/FL UARIX) Unknown Completed [facility] SARS-COV-2 COVID-19 MODERNA 12+ YRS VACCINE Unknown Completed [facility] TD Pres-Free Unknown Completed [facility] Influenza Virus Vaccine Quad .5 mL IM 6+ MO (FLUZONE/FLULAVAL/FL UARIX) Unknown Completed [facility] SARS-COV-2 COVID-19 MODERNA 12+ YRS VACCINE Unknown Completed [facility] TD Pres-Free Unknown Completed [facility] Influenza Virus Vaccine Quad .5 mL IM 6+ MO (FLUZONE/FLULAVAL/FL UARIX) Unknown Completed [facility] SARS-COV-2 COVID-19 MODERNA 12+ YRS VACCINE Unknown Completed [facility] TD Pres-Free Unknown Completed [facility] Vital Signs Vital Name Observation Time Observation Value Comments S ource Systolic blood pressure 2024-07-29 16:06:00 100 mm[Hg] [facility] - External Diastolic blood pressure 2024-07-29 16:06:00 58 mm[Hg] [facility] - External Body temperature 2024-07-29 16:06:00 37.06 [facility] - External Systolic blood pressure 2024-07-01 15:05:00 102 mm[Hg] [facility] - External Diastolic blood pressure 2024-07-01 15:05:00 60 mm[Hg] [facility] - External Body temperature 2024-07-01 15:05:00 36.56 Val Klesey [facility] - External Systolic blood pressure 2024-06-06 16:49:00 102 mm[Hg] [facility] - External Diastolic blood pressure 2024-06-06 16:49:00 54 mm[Hg] [facility] - External Heart rate 2024-06-06 16:49:00 70 /min Ihsan capone [facility] - External Body temperature 2024-06-06 16:49:00 36.61 Val [facility] - External Respiratory rate 2024-06-06 16:49:00 16 /min [facility] - External Body height 2024-06-06 16:49:00 165.1 cm Loren hernandez [facility] - External Body weight 2024-06-06 16:49:00 49.442 kg Loren ey [facility] - External BMI 2024-06-06 16:49:00 18.14 kg/m2 Loren [facility] - External Oxygen saturation in Arterial blood by Pulse oximetry 2024-06-06 16:49:00 98 /min [facility] - External Systolic blood pressure 2024-05-22 21:13:00 115 mm[Hg] [facility] - External Diastolic blood pressure 2024-05-22 21:13:00 73 mm[Hg] [facility] - External Heart rate 2024-05-22 21:13:00 74 /min Kelse y [facility] - External Body temperature 2024-05-22 21:13:00 36.56 Val [facility] - External Respiratory rate 2024-05-22 21:13:00 16 /min [facility] - External Body height 2024-05-22 21:13:00 165.1 cm Loren ey [facility] - External Body weight 2024-05-22 21:13:00 49.442 kg Loren ey [facility] - External BMI 2024-05-22 21:13:00 18.14 kg/m2 Loren ey [facility] - External Oxygen saturation in Arterial blood by Pulse oximetry 2024-05-22 21:13:00 97 /min [facility] - External Systolic blood pressure 2024-05-19 20:02:00 112 mm[Hg] [facility] - External Diastolic blood pressure 2024-05-19 20:02:00 68 mm[Hg] [facility] - External Heart rate 2024-05-19 20:02:00 98 /min Davisse y [facility] - External Body temperature 2024-05-19 20:02:00 36.67 Val [facility] - External Heart rate 2024-02-27 11:17:43 89 /min [facility] Respiratory rate 2024-02-27 11:17:43 18 /min [facility] Oxygen saturation in Arterial blood by Pulse oximetry 2024-02-27 11:17:43 95 /min [facility] Systolic blood pressure 2024-02-27 11:17:32 132 mm[Hg] [facility] Diastolic blood pressure 2024-02-27 11:17:32 78 mm[Hg] [facility] Body temperature 2024-02-27 11:17:32 37.33 Val [facility] Body weight 2024-02-27 05:00:00 52.8 kg Jonny Palmaann Epic BMI 2024-02-27 05:00:00 19.37 kg/m2 Jonny Palmaann [facility] Body height 2024-02-26 06:45:00 165.1 cm Jonny Palmaann Epic Heart rate 2024-02-27 11:17:43 89 /[facility] Respiratory rate 2024-02-27 11:17:43 18 /min [facility] Oxygen saturation in Arterial blood by Pulse oximetry 2024-02-27 11:17:43 95 /min [facility] Systolic blood pressure 2024-02-27 11:17:32 132 mm[Hg] [facility] Diastolic blood pressure 2024-02-27 11:17:32 78 mm[Hg] [facility] Body temperature 2024-02-27 11:17:32 37.33 Val [facility] Body weight 2024-02-27 05:00:00 [facility]24-[facility]-27 05:00:00 19.37 [facility] 2024-02-26 06:45:00 165.1 cm Jonny Palmaann Epic Systolic blood pressure 2024-02-22 20:07:00 130 mm[Hg] [facility] - External Diastolic blood pressure 2024-02-22 20:07:00 78 mm[Hg] [facility] - External Heart rate 2024-02-22 20:07:00 76 /min Kelse y [facility] - External Systolic blood pressure 2024-01-24 18:41:00 98 mm[Hg] [facility] - External Diastolic blood pressure 2024-01-24 18:41:00 56 mm[Hg] [facility] - External Heart rate 2024-01-24 18:41:00 92 /min Kelse y [facility] - External Body temperature 2024-01-24 18:41:00 36.72 Val [facility] - External Respiratory rate 2024-01-24 18:41:00 16 /min [facility] - External Systolic blood pressure 2023-12-24 18:41:00 126 mm[Hg] [facility] - External Diastolic blood pressure 2023-12-24 18:41:00 76 mm[Hg] [facility] - External Body temperature 2023-12-24 18:41:00 36.72 Val [facility] - External Systolic blood pressure 2023-12-07 15:22:00 97 mm[Hg] Seybo ld - External Diastolic blood pressure 2023-12-07 15:22:00 63 mm[Hg] Seybo ld - External Body temperature 2023-12-07 15:22:00 36.5 Val Seybold - External Respiratory rate 2023-12-07 15:22:00 16 /min Seybold - External Body height 2023-12-07 15:22:00 165.1 cm Loren ey Seybold - External Body weight 2023-12-07 15:22:00 49.896 kg Loren ey Seybold - External BMI 2023-12-07 15:22:00 18.30 kg/m2 Loren ey Seybold - External Systolic blood pressure 2023-11-20 20:50:00 80 mm[Hg] Seybo ld - External Diastolic blood pressure 2023-11-20 20:50:00 32 mm[Hg] Seybo ld - External Heart rate 2023-11-20 20:50:00 92 /min Kelse y Seybold - External Body temperature 2023-11-20 20:50:00 36.5 Val Seybold - External Respiratory rate 2023-11-20 20:50:00 16 /min Seybold - External Systolic blood pressure 2023-09-19 15:13:00 139 mm[Hg] Seybo ld - External Diastolic blood pressure 2023-09-19 15:13:00 82 mm[Hg] Seybo ld - External Heart rate 2023-09-19 15:12:00 95 /min Kelse y Seybold - External Body temperature 2023-09-19 15:12:00 36.89 Val Kelsey Moralesybold - External Respiratory rate 2023-09-19 15:12:00 16 /min Kelsey Moralesybold - External Body height 2023-09-19 15:12:00 165.1 cm Loren ey Seybold - External Body weight 2023-09-19 15:12:00 51.982 kg Loren hernandez Seybold - External BMI 2023-09-19 15:12:00 19.07 kg/m2 Loren hernandez Seybold - External Oxygen saturation in Arterial blood by Pulse oximetry 2023-09-19 15:12:00 98 /min Kelsey Moralesybo ld - External Systolic blood pressure 2023-08-16 16:10:00 108 mm[Hg] [facility] Diastolic blood pressure 2023-08-16 16:10:00 68 mm[Hg] [facility] Heart rate 2023-08-16 16:10:00 80 /min [facility] 2023-08-16 16:10:00 [facility] Body weight 2023-08-16 16:10:00 [facility]432 [facility] BMI 2023-08-16 16:10:00 19.97 kg/m2 [facility] Heart rate 2023-08-03 14:13:00 83 /min [facility] Body height 2023-08-03 14:13:00 [facility].1 [facility] Body weight 2023-08-03 14:13:00 [facility]432 [facility] BMI 2023-08-03 14:13:00 19.97 kg[facility]m2 [facility] Systolic blood pressure 2023-08-03 14:13:00 113 mm[Hg] [facility] Diastolic blood pressure 2023-08-03 14:13:00 69 mm[Hg] [facility] Systolic blood pressure 2023-06-29 16:19:00 102 mm[Hg] Seybo ld - External Diastolic blood pressure 2023-06-29 16:19:00 58 mm[Hg] Seybo ld - External Heart rate 2023-06-29 16:19:00 66 /min Ihsan capone Seybold - External Body temperature 2023-06-29 16:19:00 36.44 Val Seybold - External Respiratory rate 2023-06-29 16:19:00 14 /min Seybold - External Body height 2023-06-29 16:19:00 165.1 cm Loren hernandez Seybold - External Body weight 2023-06-29 16:19:00 54.432 kg Loren ey Seybold - External BMI 2023-06-29 16:19:00 19.97 kg/m2 Loren hernandez Seybold - External Systolic blood pressure 2023-06-28 13:26:00 120 mm[Hg] [facility] Diastolic blood pressure 2023-06-28 13:26:00 74 mm[Hg] [facility] Heart rate 2023-06-28 13:26:00 73 /min [facility] Body temperature 2023-06-28 13:26:00 36.61 Val [facility] Body height 2023-06-28 13:26:00 [facility] Body weight 2023-06-28 13:26:00 [facility]432 [facility] BMI 2023-06-28 13:26:00 19.97 kg/m2 [facility] Heart rate 2023-05-30 21:34:00 94 /min [facility] Body temperature 2023-05-30 21:34:00 36.17 Val [facility] Respiratory rate 2023-05-30 21:34:00 16 /min [facility] Oxygen saturation in Arterial blood by Pulse oximetry 2023-05-30 21:34:00 97 /min [facility] Systolic blood pressure 2023-05-30 21:34:00 117 mm[Hg] [facility] Diastolic blood pressure 2023-05-30 21:34:00 76 mm[Hg] [facility] Body height 2023-05-27 21:46:00 165.1 cm [facility] Body weight 2023-05-27 21:46:00 57.5 kg [facility] BMI 2023-05-27 21:46:00 21.09 kg/m2 [facility] Systolic blood pressure 2023-05-27 15:45:00 99 mm[Hg] [facility] Diastolic blood pressure 2023-05-27 15:45:00 78 mm[Hg] [facility] Heart rate 2023-05-27 15:45:00 106 /min [facility] Respiratory rate 2023-05-27 15:45:00 29 /min [facility] Oxygen saturation in Arterial blood by Pulse oximetry 2023-05-27 15:45:00 98 /min [facility] Body temperature 2023-05-27 15:30:00 35.94 Val [facility] Body height 2023-05-27 12:54:00 165.1 cm [facility] Body weight 2023-05-27 12:54:00 54.432 kg [facility] BMI 2023-05-27 12:54:00 19.97 kg/m2 [facility] Systolic blood pressure 2023-04-10 20:57:00 98 mm[Hg] Seybo ld - External Diastolic blood pressure 2023-04-10 20:57:00 58 mm[Hg] Seybo ld - External Heart rate 2023-04-10 20:57:00 78 /min Kelse y Seybold - External Body temperature 2023-04-10 20:57:00 36.5 Val Seybold - External Body height 2023-04-10 20:57:00 165.1 cm Loren ey Seybold - External Body weight 2023-04-10 20:57:00 54.432 kg Loren ey Seybold - External BMI 2023-04-10 20:57:00 19.97 kg/m2 Loren ey Seybold - External Systolic blood pressure 2023-04-03 20:08:00 139 mm[Hg] Seybo ld - External Diastolic blood pressure 2023-04-03 20:08:00 79 mm[Hg] Seybo ld - External Heart rate 2023-04-03 20:08:00 116 /min Kelse y Seybold - External Body temperature 2023-04-03 20:08:00 37.11 Val Seybold - External Respiratory rate 2023-04-03 20:08:00 20 /min Seybold - External Body height 2023-04-03 20:08:00 165.1 cm Loren ey Seybold - External Body weight 2023-04-03 20:08:00 53.978 kg Loren ey Seybold - External BMI 2023-04-03 20:08:00 19.80 kg/m2 Loren ey Seybold - External Oxygen saturation in Arterial blood by Pulse oximetry 2023-04-03 20:08:00 99 /min Seybo ld - External Body weight 2023-02-15 20:33:00 54.432 kg Loren ey Seybold - External BMI 2023-02-15 20:33:00 19.97 kg/m2 Loren ey Seybold - External Systolic blood pressure 2023-02-15 20:21:00 132 mm[Hg] Seybo ld - External Diastolic blood pressure 2023-02-15 20:21:00 70 mm[Hg] Seybo ld - External Heart rate 2023-02-15 20:21:00 74 /min Kelse y Seybold - External Body temperature 2023-02-15 20:21:00 37.22 Val Seybold - External Respiratory rate 2023-02-15 20:21:00 15 /min Seybold - External Body height 2023-02-15 20:21:00 165.1 cm Loren ey Seybold - External Systolic blood pressure 2023-01-29 19:39:00 156 mm[Hg] Seybo ld - External Diastolic blood pressure 2023-01-29 19:39:00 78 mm[Hg] Seybo ld - External Heart rate 2023-01-29 19:39:00 70 /min Kelse y Seybold - External Systolic blood pressure 2023-01-18 18:42:00 136 mm[Hg] Seybo ld - External Diastolic blood pressure 2023-01-18 18:42:00 82 mm[Hg] Seybo ld - External Heart rate 2023-01-18 18:42:00 85 /min Kelse y Seybold - External Respiratory rate 2023-01-18 18:42:00 16 /min Seybold - External Systolic blood pressure 2023-01-18 14:53:00 127 mm[Hg] Seybo ld - External Diastolic blood pressure 2023-01-18 14:53:00 73 mm[Hg] Seybo ld - External Heart rate 2023-01-18 14:53:00 81 /min Kelse y Seybold - External Body temperature 2023-01-18 14:53:00 36.56 Val Seybold - External Respiratory rate 2023-01-18 14:53:00 15 /min Seybold - External Body height 2023-01-18 14:53:00 165.1 cm Loren ey Seybold - External Body weight 2023-01-18 14:53:00 56.246 kg Loren ey Seybold - External BMI 2023-01-18 14:53:00 20.63 kg/m2 Loren ey Seybold - External Oxygen saturation in Arterial blood by Pulse oximetry 2023-01-18 14:53:00 99 /min Seybo ld - External Systolic blood pressure 2023-01-12 14:23:00 151 mm[Hg] Seybo ld - External Diastolic blood pressure 2023-01-12 14:23:00 77 mm[Hg] Seybo ld - External Heart rate 2023-01-12 14:23:00 80 /min Kelse y Seybold - External Body temperature 2023-01-12 14:23:00 36.72 Val Seybold - External Respiratory rate 2023-01-12 14:23:00 16 /min Seybold - External Systolic blood pressure 2023-01-10 14:30:00 149 mm[Hg] Seybo ld - External Diastolic blood pressure 2023-01-10 14:30:00 83 mm[Hg] Seybo ld - External Heart rate 2023-01-10 14:30:00 85 /min Kelse y Seybold - External Body temperature 2023-01-10 14:30:00 36.78 Val Seybold - External Respiratory rate 2023-01-10 14:30:00 15 /min Seybold - External Body height 2023-01-10 14:30:00 165.1 cm Loren ey Seybold - External Body weight 2023-01-10 14:30:00 58.514 kg Loren ey Seybold - External BMI 2023-01-10 14:30:00 21.47 kg/m2 Loren ey Seybold - External Oxygen saturation in Arterial blood by Pulse oximetry 2023-01-10 14:30:00 99 /min Kelsey Rogerso ld - External Systolic blood pressure 2022-04-10 20:10:00 118 mm[Hg] Kelsey Moralesybo ld - External Diastolic blood pressure 2022-04-10 20:10:00 72 mm[Hg] Kelsey Moralesybo ld - External Heart rate 2022-04-10 20:10:00 97 /min Ihsan capone Seybold - External Body temperature 2022-04-10 20:10:00 36.94 Val Kelsey Moralesybold - External Respiratory rate 2022-04-10 20:10:00 15 /min Kelsey Moralesybold - External Body height 2022-04-10 20:10:00 165.1 cm Loren hernandez Seybold - External Body weight 2022-04-10 20:10:00 58.514 kg Loren ey Seybold - External BMI 2022-04-10 20:10:00 21.47 kg/m2 Loren hernandez Seybold - External Oxygen saturation in Arterial blood by Pulse oximetry 2022-04-10 20:10:00 99 /min Kelsey Rogerso ld - External Heart Rate 2023-08-18 12:11:10 [facility] Temperature Oral (F) 2023-08-18 12:10:48 97.6 F [facility] Systolic (mm Hg) 2023-08-18 12:10:03 [facility] Diastolic (mm Hg) 2023-08-18 12:10:03 [facility] Height 2023-08-17 01:15:00 5 [ft_i] [facility] Weight 2023-08-17 01:15:00 [facility] BMI Calculated 2023-08-17 01:15:00 M [facility] Systolic (mm Hg) 2023-07-17 17:00:00 [facility] Diastolic (mm Hg) 2023-07-17 17:00:00 [facility] Height 2023-07-17 11:57:00 5 [ft_i] [facility] Weight 2023-07-17 11:57:00 [facility] BMI Calculated 2023-07-17 11:57:00 M [facility] Weight 2023-07-13 13:54:00 [facility] Heart Rate 2023-05-25 17:09:02 [facility] Systolic (mm Hg) 2023-05-25 17:08:34 [facility] Diastolic (mm Hg) 2023-05-25 17:08:34 [facility] Temperature Oral (F) 2023-05-25 17:08:21 98.3 F [facility] Temperature Oral (F) 2023-05-24 10:00:00 98 F [facility] Height 2023-05-22 12:48:00 5 [ft_i] [facility] Weight 2023-05-22 12:48:00 [facility] BMI Calculated 2023-05-22 12:48:00 M [facility] Weight 2023-05-21 17:34:00 [facility] Procedures Procedure Date / Time Performed Performing Clinician Source POCT Glucose 2024-03-27 00:00:00 [facility] PTT 2024-02-27 07:41:00 [facility] GLUCOSE UNSOLICITED RESULTS 2024-02-27 06:45:00 Darcy Quezada [facility] BASIC METABOLIC PANEL 2024-02-27 00:56:00 Bear Pérez [facility] COMPLETE BLOOD COUNT W/DIFF AND PLATELET 2024-02-27 00:56:00 Bear Pérez [facility] PTT 2024-02-27 00:56:00 Faisal Pérez [facility] COMPLETE BLOOD COUNT 2024-02-27 00:56:00 Bear Pérez [facility] AUTOMATED DIFFERENTIAL 2024-02-27 00:56:00 Bear Woods [facility] PTT 2024-02-27 00:00:00 [facility] POC GLUCOSE UNSOLICITED RESULTS 2024-02-26 16:32:00 Bear Pérez [facility] WOUND OSTOMY EVAL AND TREAT 2024-02-26 16:24:19 Sara Silveirahma [facility] PROCALCITONIN LEVEL 2024-02-26 15:41:00 Bear Pérez [facility] POC GLUCOSE UNSOLICITED RESULTS 2024-02-26 13:15:00 Bear Pérez [facility] BASIC METABOLIC PANEL 2024-02-26 12:09:00 Bear Pérez [facility] COMPLETE BLOOD COUNT (NO DIFF) 2024-02-26 12:09:00 Bear Pérez [facility] PROTIME-INR 2024-02-26 12:09:00 Faisal Pérez [facility] PTT 2024-02-26 12:09:00 Faisal Pérez [facility] BLOOD CULTURE 2024-02-26 12:09:00 Faisal Pérez [facility] INVASIVE VASCULAR PROCEDURE 2024-02-26 08:46:10 Bear Ferguson [facility] POC GLUCOSE UNSOLICITED RESULTS 2024-02-26 07:13:00 Bear Ferguson [facility] Site Care 2024-02-26 00:00:00 [facility] Wound Culture w/Gram Stain, Non-Surgical 2024-02-26 00:00:00 [facility] PHOSPHORUS 2023-05-30 10:28:00 Urvashi Nagel [facility] MAGNESIUM 2023-05-30 10:28:00 Urvashi Nagel [facility] BASIC METABOLIC PANEL (NA, K, CL, CO2, GLUCOSE, BUN, CREATININE, CA) 2023-05-30 10:28:00 Urvashi Nagel [facility] CBC WITH DIFF 2023-05-30 10:28:00 Urvashi Nagel [facility] BLOOD CULTURE SCREEN 2023-05-29 23:44:00 Delaney [facility] BLOOD CULTURE SCREEN 2023-05-29 23:43:00 Sanchez [facility] PHOSPHORUS 2023-05-29 11:35:00 Urvashi Nagel [facility] MAGNESIUM 2023-05-29 11:35:00 Den, [facility] BASIC METABOLIC PANEL (NA, K, CL, CO2, GLUCOSE, BUN, CREATININE, CA) 2023-05-29 11:35:00 Robe, [facility] CBC WITH DIFF 2023-05-29 11:35:00 Robe [facility] TRANSTHORACIC ECHO (TTE) COMPLETE W/ CONTRAST 2023-05-28 13:49:03 Paul Jim [facility] PHOSPHORUS 2023-05-28 08:59:00 Robe [facility] MAGNESIUM 2023-05-28 08:59:00 Robe [facility] BASIC METABOLIC PANEL (NA, K, CL, CO2, GLUCOSE, BUN, CREATININE, CA) 2023-05-28 08:59:00 Robe, [facility] CBC WITH DIFF 2023-05-28 08:59:00 Robe [facility] HB ECG ROUTINE & RHYTHM STRIP 2023-05-28 00:57:23 Tian Garcia [facility] MRSA / MSSA SCREEN BY PCR, ROCIO 2023-05-27 21:59:00 Robe [facility] CT HEAD WO CONTRAST 2023-05-27 19:02:00 Alejandro Simons [facility] CT MAXILLOFACIAL/MANDIBLE WO CONTRAST 2023-05-27 18:26:06 Tian Garcia [facility] CT TRAUMA THORACIC SPINE WO CONTRAST 2023-05-27 18:13:38 Tian Garcia [facility] CT TRAUMA LUMBAR SPINE WO CONTRAST 2023-05-27 18:13:26 Tian Garcia [facility] CREATINE KINASE 2023-05-27 17:19:[address] [facility] LIPASE 2023-05-27 17:19:00 James Gross [facility] COMP. METABOLIC PANEL (38887) 2023-05-27 17:19:00 James rGoss [facility] ETHANOL 2023-05-27 17:19:00 James Gross [facility] CBC WITHOUT DIFF 2023-05-27 17:19:00 James Gross ick [facility] PROTHROMBIN TIME / INR 2023-05-27 17:19:00 Suman Gross [facility] ACTIVATED PARTIAL THRMPLAS MARIA A 2023-05-27 17:19:00 James Gross [facility] HB ABO GROUPING 2023-05-27 17:19:00 James Gross ck [facility] [place] SMPL REPAIR SCALP/NECK/AX/GENIT/TRUNK 2.6-7.5CM 2023-05-27 14:38:32 Tim Adair [facility] CT CERVICAL SPINE WO CONTRAST 2023-05-27 13:54:38 Tim Adair [facility] CT HEAD WO CONTRAST 2023-05-27 13:54:38 Tomasz Adair [facility] LACTIC ACID WHOLE BLOOD 2023-05-27 13:23:00 Do mg Adair [facility] TROPONIN I 2023-05-27 13:15:00 Tim Adair [facility] COMP. METABOLIC PANEL ([id number]) 2023-05-27 13:15:00 Tim Adair [facility] CBC WITH DIFF 2023-05-27 13:15:00 Tim Adair [facility] N-TERMINAL PRO-BNP 2023-05-27 13:15:00 Giovany [facility] CONSENT/REFUSAL FOR DIAGNOSIS AND TREATMENT 2023-05-27 12:41:04 Doctor Unassigned, [place] [facility] AGREEMENTS AUTHORIZATIONS AND IRREVOCABLE ASSIGNMENTS (FORM 2001) 2023-05-27 06:01:00 Doctor Unassigned, [place] [facility] Incentive spirometry [facility] Blood culture, peripheral #2 [facility] Encounters Start Date/Time End Date/Time Encounter Type Admission Type Attending [facility] Care Facility Care Department Encounter ID Source 2025-01-29 16:45:00 2025-01-29 16:45:00 Outpatient MIGUEL BRYAN [id number] Kelsey Li 2025-01-15 16:45:00 2025-01-15 16:45:00 Outpatient PREZAS, MIGUEL COLE [id number] [facility] 2025-01-01 16:45:00 2025-01-01 16:45:00 Outpatient PREZAS, MIGUEL COLE [id number] [facility] 2024-12-18 16:45:00 2024-12-18 16:45:00 Outpatient PREZAS, MIGUEL COLE [id number] [facility] 2024-12-04 16:45:00 2024-12-04 16:45:00 Outpatient PREZAS, MIGUEL COLE [id number] [facility] 2024-11-20 16:45:00 2024-11-20 16:45:00 Outpatient PREZAS, MIGUEL COLE [id number] [facility] 2024-11-06 16:45:00 2024-11-06 16:45:00 Outpatient PREZAS, MIGUEL COLE [id number] [facility] 2024-10-23 16:45:00 2024-10-23 16:45:00 Outpatient PREZAS, MIGUEL COLE [id number] [facility] 2024-10-09 16:45:00 2024-10-09 16:45:00 Outpatient PREZAS, MIGUEL COLE [id number] [facility] 2024-09-25 16:45:00 2024-09-25 16:45:00 Outpatient PREZAS, MIGUEL COLE [id number] [facility] 2024-09-23 10:15:00 2024-09-23 10:15:00 Outpatient PREZAS, MIGUEL COLE [id number] [facility] 2024-09-18 10:45:00 2024-09-18 10:45:00 Outpatient PREZAS, MIGUEL COLE [id number] [facility] 2024-09-11 16:45:00 2024-09-11 16:45:00 Outpatient PREZAS, MIGUEL RODRIGUESSEY [id number] [facility] 2024-09-08 10:30:00 2024-09-08 10:30:00 Outpatient PREZASMIGUEL KELSEY COLE [id number] Kelsey Moralesybdelmi 2024-09-08 10:30:00 2024-09-08 10:30:00 Outpatient PREZASMIGUEL [id number] [facility] 2024-08-28 16:45:00 2024-08-28 16:45:00 Outpatient PREZAMIGUEL Galvan KELSEY COLE [id number] [facility] 2024-08-28 10:30:00 2024-08-28 10:30:00 Outpatient EMILY KENNEDY KELSEY COLE [id number] [facility] 2024-08-27 11:30:00 2024-08-27 11:30:00 Outpatient AKINADEEMILY KELSEY COLE [id number] [facility] 2024-08-18 00:00:00 2024-08-18 00:00:00 Outpatient PREZASMIGUEL KELSEY COLE [id number] [facility] 2024-08-18 00:00:00 2024-08-18 00:00:00 Outpatient MD KELSEY NIEVES [id number] [facility] 2024-08-18 00:00:00 2024-08-18 00:00:00 Outpatient PREZASMIGUEL KELSEY COLE [id number] [facility] 2024-08-15 00:00:00 2024-08-15 00:00:00 Outpatient PREZAMIGUEL Galvan KELSEY COLE [id number] [facility] 2024-08-14 16:45:00 2024-08-14 16:45:00 Outpatient PREZASMIGUEL KELSEY COLE [id number] [facility] 2024-08-08 00:00:00 2024-08-08 00:00:00 Outpatient HUI LICHA COLE [id number] [facility] 2024-08-08 00:00:00 2024-08-08 00:00:00 Outpatient MD KELSEY NIEVES [id number] [facility] 2024-08-07 13:00:00 2024-08-07 13:00:00 Outpatient KELSEY COLE [id number] Kelsey Moralesybdelmi 2024-07-31 16:45:00 2024-07-31 16:45:00 Outpatient PREZAS, MIGUEL KELSEY COLE [id number] [facility] 2024-07-29 11:30:00 2024-07-29 11:30:00 Outpatient AKINADE, EMILYHOSEA COLE [id number] [facility] 2024-07-21 10:10:00 2024-07-21 10:10:00 Outpatient KELSEY COLE [id number] y[facility] 2024-07-17 16:45:00 2024-07-17 16:45:00 Outpatient PREZAS, MIGUEL KELSEY COLE [id number] [facility] 2024-07-16 00:00:00 2024-07-16 00:00:00 Outpatient PREZAS, MIGUEL KELSEY COLE [id number] [facility] 2024-07-03 08:30:00 2024-07-03 08:30:00 Outpatient PLAB KELSEY COLE [id number] [facility] 2024-07-01 10:00:00 2024-07-01 10:00:00 Outpatient AKINADE, EMILY COLE [id number] [facility] 2024-06-27 00:00:00 2024-06-27 00:00:00 Outpatient PREZAS, MIGUEL COLE [id number] [facility] 2024-06-19 13:30:00 2024-06-19 13:30:00 Outpatient AKINADE, [facility] [id number] [facility]24-[facility]-19 00:00:00 2024-06-19 00:00:00 Outpatient ALIOTABEAR [id number] [facility] 2024-06-19 00:00:00 2024-06-19 00:00:00 Outpatient PREZAS, MIGUEL COLE [id number] [facility] 2024-06-18 00:00:00 2024-06-18 00:00:00 Outpatient PREZAS, MIGUEL COLE [id number] [facility] 2024-06-10 00:00:00 2024-06-10 00:00:00 Outpatient MD KELSEY NIEVES [id number] Kesley Sey[facility]delmi 2024-06-09 00:00:00 2024-06-09 00:00:00 Outpatient PREMIGUEL VELA KELSEY COLE [id number] [facility] 2024-06-06 11:30:00 2024-06-06 11:30:00 Outpatient [id number] KELSEY COLE [id number] [facility] 2024-06-06 11:00:00 2024-06-06 11:00:00 Outpatient PREZAS, MIGUEL KELSEY COLE [id number] [facility] 2024-05-29 13:00:00 2024-05-29 13:00:00 Outpatient TIFFANY SAMANIEGO [id number] [facility] 2024-05-26 00:00:00 2024-05-26 00:00:00 Outpatient KELSEY COLE [id number] [facility] 2024-05-23 00:00:00 2024-05-23 00:00:00 Outpatient KAWAR, LICHADARYL COLE [id number] [facility] 2024-05-23 00:00:00 2024-05-23 00:00:00 Outpatient KAWAR, LICHADARYL COLE [id number] [facility] 2024-05-23 00:00:00 2024-05-23 00:00:00 Outpatient PREZAS, MIGUEL KELSEY COLE [id number] [facility] 2024-05-22 15:30:00 2024-05-22 15:30:00 Outpatient KAWAR, LICHADARYL COLE [id number] [facility] 2024-05-22 00:00:00 2024-05-22 00:00:00 Outpatient KAWAR, LICHADARYL COLE [id number] [facility] 2024-05-19 14:15:00 2024-05-19 14:15:00 Outpatient EMILY KENNEDY [id number] [facility] 2024-05-16 00:00:00 2024-05-16 00:00:00 Outpatient PREMIGUEL VELA [id number] [facility] 2024-05-09 13:45:00 2024-05-09 13:45:00 Outpatient BEAR FERGUSON KELSEY COLE [id number] [facility] 2024-05-02 00:00:00 2024-05-02 00:00:00 Outpatient MIGUEL BRYAN [id number] [facility] 2024-05-02 00:00:00 2024-05-02 00:00:00 Outpatient PREMIGUEL VELA KELSEY COLE [id number] [facility] 2024-05-02 00:00:00 2024-05-02 00:00:00 Outpatient KELSEY COLE [id number] [facility] 2024-05-01 13:45:00 2024-05-01 13:45:00 Outpatient KELSEY COLE [id number] [facility] 2024-04-21 14:15:00 2024-04-21 14:15:00 Outpatient EMILY KENNEDY KELSEY COLE [id number] [facility] 2024-04-08 00:00:00 2024-04-08 00:00:00 Outpatient MIGUEL BRYAN KELSEY COLE [id number] [facility] 2024-04-03 00:00:00 2024-04-03 00:00:00 Outpatient OTIFFANY ROSS KELSEY COLE [id number] [facility] 2024-03-31 10:45:00 2024-03-31 10:45:00 Outpatient OTIFFANY ROSS K[place] [id number] [facility] 2024-02-25 00:00:00 2024-03-27 23:48:19 Herb Mckeon, Keysha Barrera [facility] [id number] [facility] 2024-02-22 00:00:00 2024-03-24 23:49:00 Orders Only Natty Enamorado, Natty [facility] [id number] [facility] 2024-03-21 10:45:00 2024-03-21 10:45:00 Outpatient [place] [id number] [facility] 2024-03-20 15:45:00 2024-03-20 15:45:00 Outpatient EMILY KENNEDY [place] [id number] [facility] 2024-03-10 07:30:00 2024-03-10 07:30:00 Outpatient TIFFANY SAMANIEGO [place] [id number] [facility] 2024-03-07 11:45:00 2024-03-07 11:45:00 Outpatient LAB90 [place] [id number] [facility] 2024-03-07 11:00:00 2024-03-07 11:00:00 Outpatient BRIANMIGUEL VELA [place] [id number] [facility] 2024-02-29 00:00:00 2024-02-29 00:00:00 Outpatient BEAR FERGUSON [id number] [facility] 2024-02-29 00:00:00 2024-02-29 00:00:00 Outpatient [place] [id number] [facility] 2024-02-26 06:08:00 2024-02-27 13:29:00 Hospital Encounter Bear Ferguson Jonathan Allen Gunawan, Jonas [facility] [id number] [facility] 2024-02-26 06:08:00 2024-02-27 13:29:00 Inpatient Elective DARCY QUEZADA MONTEFIORE NYACK [facility] Medicine [id number] [facility] 2024-02-27 00:00:00 2024-02-27 00:00:00 Outpatient [facility] COLE [id number] [facility] 2024-02-27 00:00:00 2024-02-27 00:00:00 Outpatient AARTI VEGA KELSEY COLE [id number] [facility] 2024-02-27 00:00:00 2024-02-27 00:00:00 [id number] [facility]-26 07:30:00 2024-02-26 07:30:00 Outpatient CUAUHTEMOC WILHELM [id number] [facility] 2024-02-26 00:00:00 2024-02-26 00:00:00 Outpatient BEAR PÉREZ [id number] [facility] 2024-02-22 14:15:00 2024-02-22 14:15:00 Outpatient EMILY KENNEDY [id number] [facility] 2024-02-21 09:45:00 2024-02-21 09:45:00 Outpatient BEAR FERGUSON [id number] [facility] 2024-02-20 00:00:00 2024-02-20 00:00:00 Outpatient MIGUEL BRYAN [id number] [facility] 2024-02-15 00:00:00 2024-02-15 00:00:00 Outpatient KELSEY COLE [id number] [facility] 2024-02-12 10:45:00 2024-02-12 10:45:00 Outpatient KELSEY COLE [id number] [facility] 2024-02-12 10:40:00 2024-02-12 10:40:00 Outpatient LAB47 KELSEY COLE [id number] [facility] 2024-02-11 13:45:00 2024-02-11 13:45:00 Outpatient TRED76 KELSEY COLE [id number] [facility] 2024-02-11 13:30:00 2024-02-11 13:30:00 Outpatient BEAR FERGUSON [id number] [facility] 2024-02-11 00:00:00 2024-02-11 00:00:00 Outpatient BEAR FERGUSON KELSEY COLE [id number] [facility] 2024-02-08 10:15:00 2024-02-08 10:15:00 Outpatient KELSEY COLE [id number] [facility] 2024-02-08 08:45:00 2024-02-08 08:45:00 Outpatient KELSEY COLE [id number] [facility] 2024-02-06 14:00:00 2024-02-06 14:00:00 Outpatient KELSEY COLE [id number] [facility] 2024-01-30 00:00:00 2024-01-30 00:00:00 Outpatient AKINADE, EMILY KELSEY COLE [id number] [facility] 2024-01-30 00:00:00 2024-01-30 00:00:00 Outpatient AKINADE, EMILYHOSEA COLE [id number] [facility] 2024-01-29 00:00:00 2024-01-29 00:00:00 Outpatient MARIBEL BROWN KELSEY COLE [id number] [facility] 2024-01-24 13:45:00 2024-01-24 13:45:00 Outpatient AKINADE, EMILYHOSEA COLE [id number] [facility] 2024-01-16 00:00:00 2024-01-16 00:00:00 Outpatient AKINADE, EMILYHOSEA COLE [id number] [facility] 2024-01-09 00:00:00 2024-01-09 00:00:00 Outpatient AKINADE, EMILYHOSEA COLE [id number] [facility] 2024-01-02 00:00:00 2024-01-02 00:00:00 Outpatient MIG[facility]EL BRYAN [id number] [facility] 2023-12-31 00:00:00 2023-12-31 00:00:00 Outpatient AKINADE, EMILYHOSEA COLE [id number] [facility] 2023-12-27 11:10:00 2023-12-27 11:10:00 Outpatient LAB47 [id number] [facility] 2023-12-27 10:45:00 2023-12-27 10:45:00 Outpatient [id number] [facility] 2023-12-26 00:00:00 2023-12-26 00:00:00 Outpatient KLESEY [id number] [facility] 2023-12-24 13:30:00 2023-12-24 13:30:00 Outpatient AKINADEEMILY [id number] [facility] 2023-12-14 00:00:00 2023-12-14 00:00:00 Outpatient PREZAS, MIGUEL [id number] [facility] 2023-12-14 00:00:00 2023-12-14 00:00:00 Outpatient PREZAS, MIGUEL KELSEY COLE [id number] [facility] 2023-12-10 00:00:00 2023-12-10 00:00:00 Outpatient PREZAS, MIGUEL [id number] [facility] 2023-12-10 00:00:00 2023-12-10 00:00:00 Outpatient PREZAS, MIGUEL [id number] [facility] 2023-12-07 11:05:00 2023-12-07 11:05:00 Outpatient LAB90 KELSEY COLE [id number] [facility] 2023-12-07 10:30:00 2023-12-07 10:30:00 Outpatient PREZAS, MIGUEL [id number] [facility] 2023-12-07 00:00:00 2023-12-07 00:00:00 Outpatient KELSEY COLE [id number] [facility] 2023-11-28 00:00:00 2023-11-28 00:00:00 Outpatient PREZASMIGUEL KELSEY COLE [id number] [facility] 2023-11-22 15:00:00 2023-11-22 15:00:00 Outpatient PREZAS, MIGUEL KELSEY COLE [id number] [facility] 2023-11-20 15:45:00 2023-11-20 15:45:00 Outpatient AKINADE, EMILY KELSEY COLE [id number] [facility] 2023-11-15 00:00:00 2023-11-15 00:00:00 Outpatient PREZAMIGUEL Galvan KELSEY COLE [id number] [facility] 2023-11-13 00:00:00 2023-11-13 00:00:00 Outpatient KELSEY COLE [id number] [facility] 2023-10-29 00:00:00 2023-10-29 00:00:00 Outpatient PREZAS, MIGUEL KELSEY COLE [id number] [facility] 2023-10-26 00:00:00 2023-10-26 00:00:00 Outpatient PREZAS, MIGUEL KELSEY COLE [id number] [facility] 2023-10-17 00:00:00 2023-10-17 00:00:00 Outpatient PREZAS, MIGUEL KELSEY COLE [id number] [facility] 2023-10-16 00:00:00 2023-10-16 00:00:00 Outpatient KELSEY COLE [id number] [facility] 2023-10-09 13:30:00 2023-10-09 13:30:00 Outpatient AKINMARANDA, EMILY KELSEY COLE [id number] [facility] 2023-09-26 08:45:00 2023-09-26 08:45:00 Outpatient PREZAS, MIGUEL KELSEY COLE [id number] [facility] 2023-09-20 00:00:00 2023-09-20 00:00:00 Outpatient TORRES, TNESHA KELSEY COLE [id number] [facility] 2023-09-19 10:00:00 2023-09-19 10:00:00 Outpatient AHMED, BHARATHI KELSEY COLE [id number] [facility] 2023-09-18 00:00:00 2023-09-18 00:00:00 Outpatient KELSEY COLE [id number] [facility] 2023-09-17 00:00:2023-09-17 00:00:00 Outpatient RANDI MIGUEL KELSEY COLE [id number] [facility] 2023-09-06 00:00:00 2023-09-06 00:00:00 Outpatient MD KELSEY NIEVES [id number] [facility] 2023-08-22 00:00:00 2023-08-22 00:00:00 Outpatient EDGAR TORRESDORAZaynab COLE [id number] [facility] 2023-08-21 00:00:00 2023-08-21 00:00:00 Outpatient KELSEY COLE [id number] [facility] 2023-08-21 00:00:00 2023-08-21 00:00:00 Outpatient ROCIO PAULINO [id number] [facility] 2023-08-21 00:00:00 2023-08-21 00:00:00 Outpatient BOOKERMIGUEL Galvan KELSEY COLE [id number] [facility] 2023-08-21 00:00:00 2023-08-21 00:00:00 Outpatient BEAR FERGUSON [id number] [facility] 2023-08-20 10:30:00 2023-08-20 10:30:00 Outpatient BEAR FERGUSON [id number] [facility] 2023-08-20 00:00:00 2023-08-20 00:00:00 Outpatient MATTI SPENCE [id number] [facility] 2023-08-20 00:00:00 2023-08-20 00:00:00 Outpatient BETZAIDA, ASHLEY COLE [id number] [facility] 2023-08-19 00:00:00 2023-08-19 00:00:00 Outpatient KELSEY COLE [id number] [facility] 2023-08-19 00:00:00 2023-08-19 00:00:00 Outpatient KELSEY COLE [id number] [facility] 2023-08-17 09:40:00 2023-08-18 11:00:00 Inpatient ROCIO STRICKLAND [facility] [id number] [facility] 2023-08-18 00:00:00 2023-08-18 00:00:00 Outpatient ROCIO PAULINO [id number] [facility] 2023-08-18 00:00:00 2023-08-18 00:00:00 Outpatient ROCIO PAULINO [facility]ELSEY COLE [id number] [facility]-18 00:00:00 2023-08-18 00:00:00 Outpatient ROCIO PAULINO KELSEY COLE [id number] [facility] 2023-08-17 06:00:00 2023-08-17 06:00:00 Outpatient JIGNA ANNE [facility] [id number] [facility] 2023-08-17 00:00:00 2023-08-17 00:00:00 Outpatient KELSEY COLE [id number] [facility] 2023-08-16 10:50:00 2023-08-16 12:12:51 Office Visit Renny Vaz [facility] 3 1.2.840.114 350.1.13.58 [id number] [id number] [facility] 2023-08-16 00:00:00 2023-08-16 00:00:00 Outpatient ARIEL PÉREZNATHAN KELSEY COLE [id number] [facility] 2023-08-14 16:30:00 2023-08-14 16:30:00 Outpatient [facility] [id number] [facility] 2023-08-14 16:30:00 2023-08-14 16:30:00 Outpatient [facility] [id number] [facility] 2023-08-14 16:00:00 2023-08-14 16:00:00 Outpatient [facility] [id number] [facility] 2023-08-09 10:40:00 2023-08-09 10:40:00 Outpatient ТАТЬЯНА RENNY [facility] [id number] [facility] 2023-05-31 00:00:00 2023-08-07 16:15:57 Telephone Juan J Shoemaker [facility] 1..840.114 350.1.13.10 4.2.7.2.686 [id number] [facility] 2023-08-03 09:30:00 2023-08-03 10:20:29 Office Visit Renny Vaz [facility] 3 1..840.114 350.1.13.58 9.2.7.2.686 [id number] [facility] 2023-08-03 00:00:00 2023-08-03 00:00:00 Outpatient MARIBEL BROWN [id number] [facility] 2023-08-03 00:00:00 2023-08-03 00:00:00 [id number] [facility]:00[facility]00 2023-08-03 00:00:00 Outpatient MIGUEL BRYAN [id number] [facility] 2023-07-27 00:00:00 2023-07-27 00:00:00 Outpatient BEAR FERGUSON [id number] [facility] 2023-07-25 00:00:00 2023-07-25 00:00:00 Outpatient MIGUEL BRYAN [id number] [facility] 2023-07-24 00:00:00 2023-07-24 00:00:00 Outpatient KELSEY COLE [id number] [facility] 2023-07-18 00:00:00 2023-07-18 00:00:00 Outpatient PROVIDER, ASHLEY COLE [id number] Kelsey Li 2023-07-18 00:00:00 2023-07-18 00:00:00 Outpatient PROVIDERASHLEY [id number] [facility] 2023-07-17 06:06:00 2023-07-17 12:25:00 Outpatient BEAR FERGUSON [facility] [id number] [facility] 2023-07-17 09:00:00 2023-07-17 09:00:00 Outpatient SCHEDULE, CAMMIEADITYA KELSEY COLE [id number] [facility] 2023-07-11 10:20:00 2023-07-11 10:20:00 Outpatient LAB90 KELSEY COLE [id number] [facility] 2023-07-11 00:00:00 2023-07-11 00:00:00 Outpatient KELSEY COLE [id number] [facility] 2023-07-05 09:45:00 2023-07-05 09:45:00 Outpatient RENNY VAZ [facility] [id number] [facility] 2023-06-29 11:30:00 2023-06-29 11:30:00 Outpatient MIGUEL BRYAN [id number] [facility] 2023-06-28 08:30:00 2023-06-28 09:02:53 Office Visit Renny Vaz [facility] 3 1.2.840.114 350.1.13.58 9.2.7.2.686 [id number] [facility] 2023-06-27 00:00:00 2023-06-27 00:00:00 Outpatient AMANDA ZUNIGA [id number] [facility] 2023-06-26 00:00:00 2023-06-26 00:00:00 Outpatient KELSEY COLE [id number] [facility] 2023-06-22 10:45:00 2023-06-22 10:45:00 Outpatient TRED76 KELSEY COLE [id number] [facility] 2023-06-22 10:15:00 2023-06-22 10:15:00 Outpatient BEAR FERGUSON [id number] [facility] 2023-06-20 00:00:00 2023-06-20 00:00:00 Outpatient MIGUEL BRYAN [id number] Kelsey Li 2023-06-14 00:00:00 2023-06-14 00:00:00 Outpatient MIGUEL BRYAN [id number] Kelsey Moralesybold 2023-06-12 00:00:00 2023-06-12 00:00:00 Outpatient BEAR FERGUSON [id number] [facility] 2023-06-08 00:00:00 2023-06-08 00:00:00 Telephone Eddy Greco [facility] 1.2.840.114 350.1.13.10 4.2.7.2.686 [id number] [facility] 2023-05-31 00:00:00 2023-05-31 00:00:00 Outpatient KELSEY COLE [id number] [facility] 2023-05-31 00:00:00 2023-05-31 00:00:00 Outpatient KELSEY COLE [id number] [facility] 2023-05-31 00:00:00 2023-05-31 00:00:00 Outpatient MIGUEL BRYAN [id number] [facility] 2023-05-27 11:11:00 2023-05-30 17:14:00 Hospital Encounter James Gross [facility] 1.2.840.114 350.1.13.10 4.2.7.2.686 [id number] [facility] 2023-05-29 00:00:00 2023-05-29 00:00:00 Outpatient VLADIMIR PATEL [id number] [facility] 2023-05-29 00:00:00 2023-05-29 00:00:00 Outpatient BEAR FERGUSON [id number] [facility] 2023-05-28 00:00:00 2023-05-28 00:00:00 Outpatient MATTI SPENCE [id number] [facility] 2023-05-28 00:00:00 2023-05-28 00:00:00 Outpatient BEAR PÉREZ [id number] [facility] 2023-05-28 00:00:00 2023-05-28 00:00:00 Outpatient KELSEY COLE [id number] Kelsey Li 2023-05-27 06:58:00 2023-05-27 10:01:00 Emergency X TIM ADAIR [facility] [id number] [facility] 2023-05-27 06:58:00 2023-05-27 10:01:00 Emergency Tim Adair [facility] 1.2.840.114 350.1.13.10 4.2.7.2.686 [id number] [facility] 2023-05-27 06:58:00 2023-05-27 10:01:00 Emergency X TIM ADAIR [facility] ERT [id number] [facility] 2023-05-26 00:00:00 2023-05-26 00:00:00 Outpatient JOSE JAIME [id number] [facility] 2023-05-22 15:22:00 2023-05-25 20:00:00 Inpatient [facility] [id number] [facility] [place] 2023-05-22 09:22:00 2023-05-25 14:00:00 Inpatient U BEAR PÉREZ [id number] [facility] 2023-05-25 00:00:00 2023-05-25 00:00:00 Outpatient BEAR PÉREZ [id number] [facility] 20[facility]-05-25 00:00:00 2023-05-25 00:00:00 Outpatient BEAR PÉREZ [id number] [facility] 2023-05-25 00:00:00 2023-05-25 00:00:00 Outpatient KELSEY COLE [id number] Kelsey Li 2023-05-23 15:00:00 2023-05-23 15:00:00 Outpatient RENNY VAZ [facility] [id number] [facility] 2023-05-22 07:30:00 2023-05-22 07:30:00 Outpatient CUAUHTEMOC WILHELM KELSEY COLE [id number] [facility] 2023-05-22 00:00:00 2023-05-22 00:00:00 Outpatient BRADFORDARIEL LEOSBEAR KELSEY COLE [id number] [facility] 2023-05-21 00:00:00 2023-05-21 00:00:00 Outpatient PREZAMandy MIGUEL KELSEY COLE [id number] Kelsey Li 2023-05-19 00:00:00 2023-05-19 00:00:00 Outpatient PREZAMandy MIGUEL COLE [id number] Guill[facility] 2023-05-18 00:00:00 2023-05-18 00:00:00 Outpatient PREZAS, MIGUELLAVERNE COLE [id number] [facility] 2023-05-16 09:00:00 2023-05-16 09:00:00 Outpatient LAB90 KELSEY COLE [id number] [facility] 2023-05-15 00:00:00 2023-05-15 00:00:00 Outpatient KELSEY COLE [id number] [facility] 2023-05-15 00:00:00 2023-05-15 00:00:00 Outpatient ARIEL FERGUSONNATHAN KELSEY COLE [id number] [facility] 2023-05-15 00:00:00 2023-05-15 00:00:00 Outpatient MD KELSEY NIEVES [id number] [facility] 2023-05-10 00:00:00 2023-05-10 00:00:00 Outpatient PREDANE MIGUEL COLE [id number] [facility] 2023-05-08 00:00:00 2023-05-08 00:00:00 Outpatient CHRISTOPHER ZUNIGA [id number] [facility] 2023-05-08 00:00:00 2023-05-08 00:00:00 Outpatient PREZAS MIGUEL COLE [id number] [facility] 2023-05-04 15:45:00 2023-05-04 15:45:00 Outpatient TRESubhash7 KELSEY COLE [id number] [facility] 2023-05-04 09:45:00 2023-05-04 09:45:00 Outpatient KELSEY COLE [id number] [facility] 2023-05-04 09:30:00 2023-05-04 09:30:00 Outpatient KELSEY COLE [id number] [facility] 2023-05-04 00:00:00 2023-05-04 00:00:00 Outpatient PREZAS, MIGUEL KELSEY COLE [id number] [facility] 2023-05-02 14:15:00 2023-05-02 14:15:00 Outpatient AKINADE, EMILYHOSEA COLE [id number] [facility] 2023-04-23 13:30:00 2023-04-23 13:30:00 Outpatient BEAR FERGUSON [id number] [facility] 2023-04-10 15:15:00 2023-04-10 15:15:00 Outpatient AKINADE, EMILY KELSEY COLE [id number] [facility] 2023-04-04 00:00:00 2023-04-04 00:00:[address] SPENCE [id number] [facility] 2023-04-03 14:15:00 2023-04-03 14:15:00 Outpatient PREZAS, MIGUEL COLE [id number] [facility] 2023-03-27 15:00:00 2023-03-27 15:00:00 Outpatient PREZAS, MIGUEL COLE [id number] [facility] 2023-03-27 15:00:00 2023-03-27 15:00:00 Outpatient PREZAS, MIGUEL COLE [id number] [facility] 2023-03-23 13:45:00 2023-03-23 13:45:00 Outpatient PREZAS, MIGUEL COLE [id number] [facility] 2023-03-19 00:00:00 2023-03-19 00:00:00 Outpatient PREZAS, MIGUEL COLE [id number] [facility] 2023-03-10 00:00:00 2023-03-10 00:00:00 Outpatient CHRISTOPHER ZUNIGA KELSEY COLE [id number] [facility] 2023-03-02 08:45:00 2023-03-02 08:45:00 Outpatient KELSEY COLE [id number] [facility] 2023-03-01 14:45:00 2023-03-01 14:45:00 Outpatient MARCIA EMILYHOSEA COLE [id number] [facility] 2023-03-01 00:00:00 2023-03-01 00:00:00 Outpatient BEAR FERGUSON KELSEY COLE [id number] [facility] 2023-02-28 00:00:00 2023-02-28 00:00:00 Outpatient PREZAS, MIGUEL COLE [id number] [facility] 2023-02-27 08:45:00 2023-02-27 08:45:00 Outpatient KELSEY COLE [id number] [facility] 2023-02-27 07:30:00 2023-02-27 07:30:00 Outpatient KELSEY COLE [id number] [facility] 2023-02-21 10:45:00 2023-02-21 10:45:00 Outpatient MARCIAEMILY KELSEY COLE [id number] [facility] 2023-02-16 09:15:00 2023-02-16 09:15:00 Outpatient STEPHANIEMARIBEL KELSEY COLE [id number] [facility] 2023-02-15 14:15:00 2023-02-15 14:15:00 Outpatient PRE[facility]ASMIGUEL [id number] [facility]15 00:00:00 2023-02-15 00:00:00 Outpatient PREZAS, MIGUEL COLE [id number] [facility] 2023-02-14 11:00:00 2023-02-14 11:00:00 Outpatient PREZAS, MIGUEL COLE [id number] [facility] 2023-02-07 10:00:00 2023-02-07 10:00:00 Outpatient PREZAMIGUEL Galvan KELSEY COLE [id number] [facility] 2023-02-05 10:30:00 2023-02-05 10:30:00 Outpatient MARIBEL BROWN KELSEY COLE [id number] [facility] 2023-01-31 00:00:00 2023-01-31 00:00:00 Outpatient SALAS BRYANLAVERNE COLE [id number] [facility] 2023-01-30 00:00:00 2023-01-30 00:00:00 Outpatient MD KELSEY NIEVES [id number] [facility] 2023-01-29 14:15:00 2023-01-29 14:15:00 Outpatient CHRISTOPHER ZUNIGA [id number] [facility] 2023-01-29 13:40:00 2023-01-29 13:40:00 Outpatient KELSEY COLE [id number] [facility] 2023-01-18 13:30:00 2023-01-18 13:30:00 Outpatient CHRISTOPHER ZUNIGA [id number] [facility] 2023-01-18 10:00:00 2023-01-18 10:00:00 Outpatient PREZAMIGUEL Galvan KELSEY COLE [id number] [facility] 2023-01-15 14:00:00 2023-01-15 14:00:00 Outpatient ROSALINDAFrancisca COLE [id number] [facility] 2023-01-15 13:15:00 2023-01-15 13:15:00 Outpatient MINDAEZ KELSEY COLE [id number] [facility] 2023-01-15 11:00:00 2023-01-15 11:00:00 Outpatient PREZAMIGUEL Galvan KELSEY COLE [id number] [facility] 2023-01-15 00:00:00 2023-01-15 00:00:00 Outpatient MD KELSEY NIEVES [id number] [facility] 2023-01-12 09:30:00 2023-01-12 09:30:00 Outpatient CHRISTOPHER ZUNIGA [id number] [facility] 2023-01-12 00:00:00 2023-01-12 00:00:00 Outpatient GINMICHAEL [id number] [facility] 2023-01-11 00:00:00 2023-01-11 00:00:00 Outpatient PREZAS, MIGUEL [id number] [facility] 2023-01-10 10:10:00 2023-01-10 10:10:00 Outpatient LAB90 [id number] [facility] 2023-01-10 09:30:00 2023-01-10 09:30:00 Outpatient PREZAS, MIGUEL KELSEY COLE [id number] [facility] 2023-01-10 00:00:00 2023-01-10 00:00:00 Outpatient PREZAS, MIGUEL KELSEY COLE [id number] [facility] 2022-11-08 00:00:00 2022-11-08 00:00:00 Outpatient PREZAS, MIGUEL KELSEY COLE [id number] [facility] 2022-09-18 00:00:00 2022-09-18 00:00:00 Outpatient PREZAS, MIGUEL KELSEY COLE [id number] [facility] 2022-09-13 00:00:00 2022-09-13 00:00:00 Outpatient PREZAS, MIGUEL KELSEY COLE [id number] [facility] 2022-07-19 00:00:00 2022-07-19 00:00:00 Outpatient PREZAS, MIGUEL KELSEY COLE [id number] [facility] 2022-07-10 00:00:00 2022-07-10 00:00:00 Outpatient PREZAS, MIGUEL KELSEY COLE [id number] [facility] 2022-05-24 00:00:00 2022-05-24 00:00:00 Outpatient PREZAS, MIGUEL COLE [id number] [facility] 2022-05-05 00:00:00 2022-05-05 00:00:00 Outpatient PREZAS, MIGUEL COLE [id number] Kelsey Moralesdelmi 2022-04-24 00:00:00 2022-04-24 00:00:00 Outpatient PREZAS, MIGUEL COLE [id number] Kelsey Moralesybdelmi 2022-04-19 00:00:00 2022-04-19 00:00:00 Outpatient PREZAS, MIGUEL COLE [id number] [facility] 2022-04-17 00:00:00 2022-04-17 00:00:00 Outpatient PREZAS, MIGUEL COLE [id number] Kelsey Moralesybdelmi 2022-04-17 00:00:00 2022-04-17 00:00:00 Outpatient PREZAS, MIGUEL [id number] [facility] 2022-04-11 00:00:00 2022-04-11 00:00:00 Outpatient BEBEMATTI EVANS KELSEY COLE [id number] [facility] 2022-04-11 00:00:00 2022-04-11 00:00:00 Outpatient PREZAS, MIGUEL COLE [id number] [facility] 2022-04-10 15:20:00 2022-04-10 15:20:00 Outpatient JAHAIRA KELSEY COLE [id number] [facility] 2022-04-10 14:15:00 2022-04-10 14:15:00 Outpatient PREZAS, MIGUEL KELSEY COLE [id number] [facility] 2022-04-05 00:00:00 2022-04-05 00:00:00 Outpatient DHILLONISAK KELSEY COLE [id number] [facility] 2022-04-05 00:00:00 2022-04-05 00:00:00 Outpatient KELSEY COLE [id number] [facility] 2022-04-04 08:30:00 2022-04-04 08:30:00 Outpatient PREZAS, MIGUEL KELSEY COLE [id number] [facility] 2022-04-04 00:00:00 2022-04-04 00:00:00 Outpatient PREZAS, MIGUEL KELSEY COLE [id number] Kelsey Moralesybdelmi 2022-03-03 13:00:00 2022-03-03 13:00:00 Outpatient REJI KRUGER KELSEY COLE [id number] Kelsey Moralesybold 2022-03-02 00:00:00 2022-03-02 00:00:00 Outpatient MIGUEL BRYAN KELSEY COLE [id number] Kelsey Moralesybold 2022-01-17 09:00:00 2022-01-17 09:00:00 Outpatient MATTI SPENCE KELSEY COLE [id number] Kelsey Moralesybdelmi 2022-01-16 00:00:00 2022-01-16 00:00:00 Outpatient BEBE MATTI COLE [id number] [facility] 2020-11-04 15:00:00 2020-11-04 15:00:00 Outpatient BEBE MATTI COLE [id number] Sey[facility]del[facility] 2020-11-02 00:00:00 2020-11-02 00:00:00 Outpatient MATTI SPENCE KELSEY COLE [id number] [facility] Results Test Description Test Time Test Comments Results Result Co mments Source [facility] [id number] 18:13:06* Test Item Value Reference Range Interpretation Comme nts POC Glu (test code = 0999893750) 158 mg/dL 70-99 H POC Performing Location (tamra t code = 1517806741) [facility] Lab Interpretation (test cod e = 85917-5) Abnormal [facility] [id number] 13:21:28* Test Item Value Reference Range Interpretation Comme nts POC Glu (test code = 0121842564) 71 mg/dL 70-99 POC Performing Location (tamra t code = 3401331917) [address] [place] [address] [id number] 07:16:07* Test Item Value Reference Range Interpretation Comme nts POC Glu (test code = 2072810748) 96 mg/dL 70-99 POC Performing Location (tamra t code = 0666097474) [facility] 08:43:00* Test Item Value Reference Range Interpretation Comme nts Glucose Lvl (test code = Glucose Lvl) 98 70-99 BUN (test code = BUN) 17 9-23 Creatinine Lvl (test code = Creatinine Lvl) 0.69 0.55-1.02 Sodium Lvl (test code = Sodium Lvl) 138 136-145 Potassium Lvl (test code = P otassium Lvl) 5.0 3.4-4.5 Chloride Lvl (test code = Chloride Lvl) 105 98-107 CO2 (test code = CO2) 28.3 20.0-31.0 Calcium Lvl (test code = Calcium Lvl) 8.7 8.3-10.6 AGAP (test code = AGAP) 9.7 10.0-20.0 eGFR (test code = eGFR) [facility] 08:43:00* Test Item Value Reference Range Interpretation Comme nts WBC X 10x3 (test code = WBC X 10x3) 7.36 4.15-10.55 NRBC % (test code = NRBC %) 0.0 <=0.0 RBC X 10x6 (test code = RBC X 10x6) 3.83 3.74-5.22 Hgb (test code = Hgb) 11.2 10.8-14.8 Hct (test code = Hct) 33.9 33.9-45.4 MCV (test code = MCV) 88.5 77.8-97.5 MCH (test code = MCH) 29.2 pg 24.9-32.6 MCHC (test code = MCHC) 33.0 30.1-35.0 RDW - SD (test code = RDW - SD) 39.8 37.6-49.1 Platelet (test code = Platelet) 282 191-422 MPV (test code = MPV) 9.5 9.0-12.6 Segmented Neutrophils (test code = Segmented Neutrophils) 53.0 40.9-70.4 Lymphocytes (test code = Lymphocytes) 34.9 15.3-46.4 Monocytes (test code = Monocytes) 9.4 3.9-10.9 Eosinophils (test code = Eosinophils) 2.0 0.3-4.1 Basophils (test code = Basophils) 0.3 0.2-1.3 Immature Granulocytes # (tamra t code = Immature Granulocytes #) 0.4 0.1-1.0 Segmented Neutrophils # (tamra t code = Segmented Neutrophils #) 3.90 2.03-7.09 Lymphocytes # (test code = Lymphocytes #) 2.57 1.09-3.65 Monocytes # (test code = Monocytes #) 0.69 0.27-0.78 Eosinophils # (test code = Eosinophils #) 0.15 0.02-0.33 Basophils # (test code = Basophils #) 0.02 0.01-0.09 Immature Granulocytes (test code = Immature Granulocytes) 0.03 0.01-0.07 [facility] CenterTudjdjtTMOIJNLJIA4383-29-13 08:43:00* Test Item Value Reference Range Interpretation Comme [facility] C-REACTIVE PROTEIN (test cod e = C-REACTIVE PROTEIN) 6 [facility]FB Wvfpo1982-87-84 17:47:00* Test Item Value Reference Range Interpretation Comme [facility] AFB Stain (test code = AFB Stain) No Acid Fast Bacilli Seen [facility] w/Kiyyn1872-35-14 17:47:00* Test Item Value Reference Range Interpretation Comme nts Culture: AFB w/Smear (test code = Culture: AFB w/Smear) Culture [facility] Process [facility] Hxljpixlf3753-85-04 17:47:00* Test Item Value Reference Range Interpretation Comme [facility] Culture: Anaerobic (test code = Culture: Anaerobic) No Anaerobes Isolated After 2 Days [facility] CenterannFungal Dcjwz1899-55-90 17:47:00* Test Item Value Reference Range Interpretation Comme [facility] Fungal Smear (test code = Fungal Smear) No Yeast Or Fungal Elements Seen [facility] CenterCulture: Fungal w/Pgmuc9662-40-23 17:47:00* Test Item Value Reference Range Interpretation Comme [facility] Culture: Fungal w/Smear (test code = Culture: Fungal w/Smear) Culture In Progress [facility] CenterannGram Stain [id number] 17:47:00* Test Item Value Reference Range Interpretation Comme nts Gram Stain Report (test code = Gram Stain Report) No Wbc'S Or Organisms Seen [facility] Center[facility]: Wound/Abscess w/Gram [id number] 17:47:00* Test Item Value Reference Range Interpretation Comme nts Culture: Wound/Abscess w/Gram Stain (test code = Culture: Wound/Abscess w/Gram Stain) 48 Hour Report - No Growth, Holding [facility] Xvebd3286-33-90 17:45:00* Test Item Value Reference Range Interpretation Comme nts AFB Stain (test code = AFB Stain) No Acid Fast Bacilli Seen On Smear [facility] CenterannCulture: AFB w/Ywlwh2073-78-04 17:45:00* Test Item Value Reference Range Interpretation Comme nts Culture: AFB w/Smear (test code = Culture: AFB w/Smear) Culture in Process [facility] St[facility] [id number] 17:45:00* Test Item Value Reference Range Interpretation Comme nts Gram Stain Report (test code = Gram Stain Report) No Wbc'S Or Organisms Seen [facility] CenterannCulture: Wound/Abscess w/Gram [id number] 17:45:00* Test Item Value Reference Range Interpretation Comme nts Culture: Wound/Abscess w/Gram Stain (test code = Culture: Wound/Abscess w/Gram Stain) 48 Hour Report - No Growth, Holding [facility] CenterannFungal Wtevl4631-11-57 17:45:00* Test Item Value Reference Range Interpretation Comme nts Fungal Smear (test code = Fungal Smear) No Yeast Or Fungal Elements Seen [facility] CenterannCulture: Fungal w/Dlsdk9155-61-18 17:45:00* Test Item Value Reference Range Interpretation Comme nts Culture: Fungal w/Smear (test code = Culture: Fungal w/Smear) Culture In Progress [facility]annCulture: Zkywwrhfg0135-17-07 17:45:00* Test Item Value Reference Range Interpretation Comme nts Culture: Anaerobic (test code = Culture: Anaerobic) No Anaerobes Isolated After 2 Days [facility] CenterannGram Stain Wqtprh8463-45-78 11:21:00* Test Item Value Reference Range Interpretation Comme nts Gram Stain Report (test code = Gram Stain Report) No Organisms Seen Rare WBC's [facility] CenterannCulture: Wound/Abscess w/Gram Jpojs1094-24-42 11:21:00* Test Item Value Reference Range Interpretation Comme nts Culture: Wound/Abscess w/Gra m Stain (test code = Culture: Wound/Abscess w/Gram Stain) No Growth [facility] CenterPsrmfcvFPBOSVURS1434-59-78 03:57:00* Test Item Value Reference Range Interpretation Comme nts Lactic Acid Lvl (test code = Lactic Acid Lvl) 1.89 0.50-2.20 [place] [id number] 22:51:46* Test Item Value Reference Range Interpretation Fatemeh scott RADRPT (test code = RADRPT) EXAM: Ext Lower Arterial Doppler unilat US, LeftDATE: 08/16/2023 15:57.INDICATION: - severe PAD , non healing wound infection.COMPARISON: None available.TECHNIQUE: Multiplanar grayscale, color Doppler and spectral Doppler ultrasound images of the left lower extremity arteries. FINDINGS:Left Extremity Waveforms:* Common Femoral Artery: 39 cm/s, Monophasic* Superficial Femoral Artery: 107 cm/s, Monophasic* Popliteal Artery: 39 cm/s, Monophasic* Posterior Tibialis Artery: 32 cm/s, Monophasic* Dorsalis Pedis Artery: 26 cm/s, Monophasic* Anterior Tibialis Artery: 18 cm/s, Monophasic* Other: femoral to femoral bypass graft is patent.IMPRESSION:Dampene d waveforms throughout the lower extremity. No focal high-grade stenosis or occlusion. [facility] CenterTakdxqqQCYGWWGGH6657-12-54 22:12:00* Test Item Value Reference Range Interpretation Fatemeh scott ALANINE AMINOTRANSFERASE (te st code = ALANINE AMINOTRANSFERASE) 10 7-40 ASPARTATE TRANSAMINASE (test code = ASPARTATE TRANSAMINASE) 24 12-40 Albumin Lvl (test code = Alb umin Lvl) 3.7 3.4-5.0 Alk Phos (test code = Alk Phos) 91 46-116 Bili Total (test code = Bili Total) 0.30 0.20-1.10 Total Protein (test code = T otal Protein) 7.5 5.7-8.2 B/C Ratio (test code = B/C Ratio) 13 1 6-25 Globulin (test code = Globulin) 3.8 2.0-4.0 A/G Ratio (test code = A/G Ratio) 1.0 1 0.7-1.6 Procalcitonin Lvl (test code = Procalcitonin Lvl) <0.05 ng/mL <=0.10 [place] [id number] 21:44:40* Test Item Value Reference Range Interpretation Fatemeh scott RADRPT (test code = RADRPT) EXAM: Ext Lower Venous Doppler Unilat US, LeftDATE: 08/16/2023 15:40.INDICATION: - swelling, known vasculopath.COMPARISON: None available.TECHNIQUE: Multiplanar grayscale, color Doppler and spectral Duplex Doppler ultrasound of the left lower extremity veins.FINDINGS:LEFT LOWER EXTREMITY VEINS* Common Femoral: Patent.* Femoral (SFV): Patent.* Popliteal: Patent.* Proximal Greater Saphenous: Patent.* Deep Femoral Veins: Patent. * Anterior Tibial: Not seen.* Posterior Tibial: Patent.* Peroneal: Patent.Other: None.IMPRESSION:No deep venous thrombosis (DVT) is identified within the visible LEFT lower extremity veins. [facility]2024-04-16 12:00:00* Test Item Value Reference Range Interpretation Comme [facility] Glucose POC (test code = Glucose POC) 117 70-99 [facility] 15:24:28* Test Item Value Reference Range Interpretation Comme [facility] Height (test code = 1471708116) 65 in Weight (test code = 7042833443) 126 lbs Systolic BP (test code = 5154247011) 127 mmHg Diastolic BP (test code = 3183424685) 84 mmHg Heart Rate (test code = 7926361938) 80 bpm BSA (test code = 3553706977) 1.63 m2 Ao root diam (test code = 2890919932) 2.34 cm Aortic root (test code = 8627452423) 2.34 cm Ao root annulus (test code = 7409607758) 2.34 cm LA size (test code = 6891959124) 2.21 cm LVOT diameter (test code = 1854944016) 1.49 cm LVOT area (test code = 5455322131) 1.74 cm2 TR Peak Hubert (test code = 1258586092) 302.7 cm/s Triscuspid Valve Regurgitation Peak Gradient (test code = 4513418828) 36.6 mmHg MV Peak E Hubert (test code = 6116568754) 102.2 cm/s MV Peak A Hubert (test code = 6918321561) 137.3 cm/s E/A ratio (test code = 8217918272) 0.74 ratio E wave decelartion time (test code = 1086353419) 0.29 s MV Prop V (test code = 8869758251) 11.60 cm/s LAV(MOD-sp4) (test code = 8797957873) 13.90 mL Tapse (test code = 6166056285) 3.7 cm Ao peak hubert (test code = 8045398711) 170.3 cm/s Ao max PG (test code = 3916734740) 11.60 mm[Hg] AV peak gradient (test code = 7134343855) 11.6 mmHg LVOT stroke volume (test code = 8340656224) 49.00 cm3 LVOT peak hubert (test code = 9300389893) 140.7 cm/s LVOT mn grad (test code = 0875230297) 3.5 mmHg AV LVOT peak gradient (test code = 0953744549) 7.9 mmHg LVOT peak VTI (test code = 1853761974) 28.3 cm AV area peak hubert (test code = 9980630648) 1.4 cm2 LV V1 mean (test code = 9559802412) 86.30 cm/s LA Volume Index (BP) (test code = 4516705293) 10.1 mL/m2 LA volume (BP) (test code = 1791241380) 16.5 mL LAV(MOD-sp2) (test code = 1552241908) 17.30 mL LVIDD (test code = 6404727312) 3.10 cm Left Ventricular End Diastolic Volume by Teichholz Method (test code = 3261628) 39.4 mL IVS (test code = 7692232439) 0.43 cm Interventricular Septum Diastolic Thickness by 2D (test code = 5138063) 0.43 cm LVPWD (test code = 0051664062) 0.82 cm PW (test code = 9409020345) 0.82 cm 0.6-1.1 EF(Teich) (test code = 3932124166) 72.30 % LVIDS (test code = 9933995367) 1.88 cm Left Ventricular End Systolic Volume by Teichholz Method (test code = 9187821) 10.9 mL FS (test code = 6181750086) 40 % EF - 2D (test code = 85982679) 72.30 % A4C EF (test code = 0293827856) 72.40 % EF(sp4-el) (test code = 6751409050) 73.70 % SV(MOD-sp4) (test code = 2125857121) 45.40 mL SV(sp4-el) (test code = 0609537523) 48.40 mL LV Diastolic Volume (BP) (test code = 4114790246) 65.6 mL A2C EF (test code = 9004986381) 76.80 % EF(MOD-bp) (test code = 5655118371) 76.50 % EF(sp2-el) (test code = 1563636161) 76.50 % LV Systolic Volume (BP) (test code = 8617872298) 15.4 mL SV(MOD-bp) (test code = 2579059405) 50.20 mL SV(MOD-sp2) (test code = 3979053467) 51.10 mL EF (test code = 1192333292) 77 Left Ventricular Stroke Volume by 2-D Biplane-MOD (test code = 4533851) 50.2 mL LV Diastolic Volume Index (BP) (test code = 3350799904) 40.2 mL/m2 LV Systolic Volume Index (BP) (test code = 6337018095) 9.4 mL/m2 Radiology Study observation (narrative) (test code = 68441-5) BLAYNE (test code = BLAYNE) ?Left?Ventricle: Left ventricle size is normal. Increased wall thickness. Mild septal thickening. Normal wall motion. Hyperdynamic systolic function with a visually estimated EF of greater than 65%. Normal diastolic function. Pressure gradient across LVOT is 17 mmHg at rest, increases to 51 mmHg with Valsalva. This is likely due to hyperdynamic small LV. No SOY noted. ?Right?Ventricle: Right ventricle size is normal. Normal systolic function. ?Left?Atrium: Left atrium size is normal. Left atrium volume index is 10.1 mL/m2. ?Tricuspid?Valve: Trace transvalvular regurgitation. Right ventricular systolic pressure is 35-40 mmHg. ?RA pressure is 0-5 mmHg. ?IVC/SVC: IVC diameter is less than or equal to 21 mm and decreases greater than 50% during inspiration; therefore the estimated right atrial pressure is normal (~0-5 mmHg). Left VentricleLeft ventricle size is normal. Increased wall thickness. Mild septal thickening. Normal wall motion. Hyperdynamic systolic function with a visually estimated EF of greater than 65%. Normal diastolic function. Pressure gradient across LVOT is 17 mmHg at rest, increases to 51 mmHg with Valsalva. This is likely due to hyperdynamic small LV. No SOY noted.Right VentricleRight ventricle size is normal. Normal systolic function.Left AtriumLeft atrium size is normal. Left atrium volume index is 10.1 mL/m2.Right AtriumRight atrium size is normal.IVC/SVCIVC diameter is less than or equal to 21 mm and decreases greater than 50% during inspiration; therefore the estimated right atrial pressure is normal (~0-5 mmHg).Mitral ValveMitral valve structure is normal. Trace transvalvular regurgitation. No stenosis.Tricuspid ValveTricuspid valve structure is normal. Trace transvalvular regurgitation. Right ventricular systolic pressure is 35-40 mmHg. RA pressure is 0-5 mmHg. No stenosis.Aortic ValveAortic valve opens well. No transvalvular regurgitation. No hemodynamically significant .Pulmonic ValveNot well visualized. Trace transvalvular regurgitation. No stenosis.Ascending AortaNormal sized aortic root.PericardiumNo pericardial effusion.Study DetailsStudy quality experienced technical difficulty. A complete echocardiogram was performed using 2D, color flow Doppler and spectral Doppler. 5 mL of Lumason ultrasound enhancing agent used. Patient exhibited sinus rhythm. [facility] LancasterCreatine Mcgwlm1195-90-46 22:00:51* Test Item Value Reference Range Interpretation Comme nts CK (test code = 7992257394) 1376 U/L 33-194 H Lab Interpretation (test cod e = 79815-0) Abnormal [facility] LancasterCT HEAD WO [id number] 21:31:24EXAM: CT HEAD WO CONTRAST HISTORY: 68 years-old Female; Provided indication: Cerebral hemorrhagesuspected. TECHNIQUE: Axial CT of the head was performed and reconstructed at 5 mmintervals. Coronal and sagittal reformatted images were generated. COMPARISON: CT head 05/27/2023 FINDINGS: Redemonstration of shallow right cervical convexity subdural, measuring upto 3 mm. The ventricles and cerebral sulci are normal in caliber andconfiguration. No midline shift or significant intracranial mass effect.The basal cisterns are unremarkable. No acute intracranial hemorrhage or significant mass effect is visualizebutlikely represent sequelae of microvascular ischemic disease. The felipe-whitematter differentiation is preserved. The mastoid air cells and visualized paranasal air sinuses are clear. Thecalvarium and central skull base are unremarkable. [facility] LancasterCT TRAUMA LUMBAR SPINE WO [id number] 18:55:50EXAM: CT TRAUMA THORACIC SPINE WO CONTRAST, CT TRAUMA LUMBAR SPINE WOCONTRAST HISTORY: 68 years-oldFemale; Polytrauma, critical, T/L spine injurysuspected. COMPARISON: None TECHNIQUE: ?CT imaging ofthe thoracic, and lumbar spine was obtainedwithout IV contrast. Coronal and sagittal reformats wereconstructed. FINDINGS: THORACIC SPINE: Mild S shaped curvature of the thoracolumbar spine. The vertebral bodiesare in normal height and alignment. The intervertebral disc spaces arepreserved. No acute fracture or dislocation is present. There are milddegenerative changes of thoracic spine. Paraspinal soft tissues areunremarkable. LUMBAR SPINE: The lumbar curvature is normal. The vertebral bodies are normal in height.Levoscoliosis. No facet fracture or subluxation is present. Moderate degenerative changes of the lumbar spine with severe loss of discspace at L4-L5 and L5-S1. The visualized sacrum and pelvic bones are unremarkable. Paraspinal soft tissues are unremarkable. Please refer to concurrently performed, separately dictated CTs of thechest, abdomen and pelvis for further details.[facility] LancasterCT TRAUMA THORACIC SPINE WO [id number] 18:55:50EXAM: CT TRAUMA THORACIC SPINE WO CONTRAST, CT TRAUMA LUMBAR SPINE WOCONTRAST HISTORY: 68 years-oldFemale; Polytrauma, critical, T/L spine injurysuspected. COMPARISON: None TECHNIQUE: ?CT imaging of the thoracic, and lumbar spine was obtainedwithout IV contrast. Coronal and sagittal reformats wereconstructed. FINDINGS: THORACIC SPINE: Mild S shaped curvature of the thoracolumbar spine. The vertebral bodiesare in normal height and alignment. The intervertebral disc spaces arepreserved. No acute fracture or dislocation is present. There are milddegenerative changes of thoracic spine. Paraspinal soft tissues areunremarkable. LUMBAR SPINE: The lumbar curvature is normal. The vertebral bodies are normal in height.Levoscoliosis. No facet fracture or subluxation is present. Moderate degenerative changes of the lumbar spine with severe loss of discspace at L4-L5 and L5-S1. The visualized sacrum and pelvic bones are unremarkable. Paraspinal soft tissues are unremarkable. Please refer to concurrently performed, separately dictated CTs of thechest, abdomen and pelvis for further details.[facility] LancasterCT MAXILLOFACIAL/MANDIBLE WO [id number] 18:50:35EXAM: CT MAXILLOFACIAL/MANDIBLE WO CONTRAST HISTORY: 68 years-old Female; Provided indication: trauma .; Fall out ofwheelchair. ?TECHNIQUE: Routine unenhanced CT of the maxilla and face was performed.Coronal and sagittal reformats were obtained. COMPARISON: CT head 05/27/2023 FINDINGS: The nasal bones, nasal septum, and frontal processes of the maxilla areintact. The orbits, globes, and other intraorbital structures are unremarkable. The maxilla, maxillary sinus lockwood, and pterygoid plates are intact. ? The zygomatic arches are intact. Degenerative changes of bilateral temporomandibular joints. The mandibleotherwise appears unremarkable. ?Dental amalgam limits evaluation of thesoft tissues. Scattered dental caries. The mastoid air cells are unremarkable. Some retention cysts are present inthe paranasal sinuses; there otherwise unremarkable.[facility] LancasterEthanol - For all patients >16 years [id number] 18:15:35 ALCOHOL<10mg/dL05/27/2023 12:15 PM CSTUTMB LABORATORY SERVICESToxic Greater than or equal to 80 mg/dL. NOTE: Whole blood values are approximately 10% to 15% lower than serum and plasma.[facility] LancasterCMP2024-02-25 17:58:03* Test Item Value Reference Range Interpretation Comme nts NA (test code = 8313802443) 125 mmol/L 135-145 L K (test code = 3659700723) 4.1 mmol/L 3.5-5.0 CL (test code = 6230458245) 94 mmol/L 98-108 L CO2 TOTAL (test code = 0558850934) 18 mmol/L 23-31 L AGAP (test code = 1634292493) 13 2-16 BUN (test code = 5487836462) 60 mg/dL 7-23 H GLUCOSE (test code = 9845292258) 86 mg/dL 70-110 CREATININE (test code = 2160-0) 2.38 mg/dL 0.50-1.04 H TOTAL BILI (test code = 2507948790) 0.7 mg/dL 0.1-1.1 CALCIUM (test code = 0121105709) 7.8 mg/dL 8.6-10.6 L T PROTEIN (test code = 9115006569) 5.4 g/dL 6.3-8.2 L ALBUMIN (test code = 1838098046) 3.0 g/dL 3.5-5.0 L ALK PHOS (test code = 7019217830) 90 U/L 34-122 ALTv (test code = 1742-6) 14 U/L 5-35 AST(SGOT) (test code = 2661447606) 73 U/L 13-40 H eGFR (test code = 57345-0) 21.7 mL/min/1.73m2 CKD-EPI eGFR (2020). Assuming creatinine has been stable day-to-day for at least three months, the eGFR indicates Category G4 (15 - 29 mL/min/1.73 m2) Lab Interpretation (test code = 27442-5) Abnormal [facility] LancasterLipase2024-02-25 17:58:03* Test Item Value Reference Range Interpretation Comme [facility] LIPASE (test code = 7290705941) 19 U/L 0-220 Lab Interpretation (test cod e = 64014-7) Normal [facility] LancasterProthrombin Time / [id number] 17:57:03* Test Item Value Reference Range Interpretation Comme [facility] PROTIME PATIENT (test code = 5964-2) 12.2 10.1-12.6 INR (test code = 6301-6) 1.1 Normal INR <1.1; Warfarin Therapeutic range 2.0 to 3.0 or 2.5 to 3.5, depending upon the indications. Lab Interpretation (test code = 14452-2) Normal [facility] LancasteraPTT2024-02-25 17:57:03* Test Item Value Reference Range Interpretation Comme [facility] APTT Patient (test code = 3173-2) 27 26-36 Lab Interpretation (test cod e = 53831-1) Normal [facility] LancasterCBC Without [id number] 17:39:58* Test Item Value Reference Range Interpretation Comme [facility] WBC (test code = 6690-2) 15.10 4.30-11.10 H RBC (test code = 789-8) 3.02 3.93-5.25 L HGB (test code = 718-7) 9.1 g/dL 11.6-15.0 L HCT (test code = 4544-3) 26.8 % 35.7-45.2 L MCH (test code = 785-6) 30.1 pg 25.9-32.8 MCV (test code = 787-2) 88.7 fL 80.6-95.5 MCHC (test code = 786-4) 34.0 g/dL 31.6-35.1 PLT (test code = 777-3) 290 166-358 MPV (test code = 50663-1) 9.8 fL 9.5-12.9 RDW-CV (test code = 788-0) 12.5 % 12.0-15.5 RDW-SD (test code = 87792-1) 40.3 fL 39.0-49.9 NRBC x10^3 (test code = 4895758963) See_Comment [Automated [employer] ge] The system which generated this result transmitted reference range: 10*3/?L. The reference range was not used to interpret this result as normal/abnormal. NRBC/100 WBC (test code = 0773991280) 0.0 0.0-10.0 IPF % (test code = 1149440894) Lab Interpretation (test code = 63215-8) [facility]normal [facility] LancasterType and Screen - The Type and Screen expires at midnight on the 3rd day after it was drawn. A current Type and Screen is required when RBCs are requested. For all other blood products, a Type and Scr een performed during the current hospitalizati...2023-05-27 17:27:00* Test Item Value Reference Range Interpretation Comme nts ABO & RH (test code = 20) O NEGATIVE IAT (test code = 1185) Negative [facility] WITH [id number] 14:50:44* Test Item Value Reference Range Interpretation Comme nts WBC (test code = 6690-2) 18.20 4.30-11.10 H RBC (test code = 789-8) 3.51 3.93-5.25 L HGB (test code = 718-7) 10.8 g/dL 11.6-15.0 L HCT (test code = 4544-3) 32.1 % 35.7-45.2 L MCV (test code = 787-2) 91.5 fL 80.6-95.5 MCH (test code = 785-6) 30.8 pg 25.9-32.8 MCHC (test code = 786-4) 33.6 g/dL 31.6-35.1 RDW-SD (test code = 24538-3) 41.8 fL 39.0-49.9 RDW-CV (test code = 788-0) 12.7 % 12.0-15.5 PLT (test code = 777-3) 326 166-358 MPV (test code = 53429-3) 9.9 fL 9.5-12.9 NRBC/100 WBC (test code = 3073217112) 0.0 0.0-10.0 NRBC x10^3 (test code = 9483503605) See_Comment [Automated message] The system which generated this result transmitted reference range: 10*3/?L. The reference range was not used to interpret this result as normal/abnormal. GRAN MAT (NEUT) % (test code = 770-8) 83.9 % IMM GRAN % (test code = 6418887674) 0.30 % LYMPH % (test code = 736-9) 6.3 % MONO % (test code = 5905-5) 9.3 % EOS % (test code = 713-8) 0.0 % BASO % (test code = 706-2) 0.2 % GRAN MAT x10^3(ANC) (test code = 6820789705) 15.28 10*3/uL 1.88-7.09 H IMM GRAN x10^3 (test code = 7227331830) 0.05 10*3/uL 0.00-0.06 LYMPH x10^3 (test code = 731-0) 1.15 10*3/uL 1.32-3.29 L MONO x10^3 (test code = 742-7) 1.69 10*3/uL 0.33-0.92 H EOS x10^3 (test code = 711-2) 0.03-0.39 L BASO x10^3 (test code = 704-7) 0.03 10*3/uL 0.01-0.07 POLYCHROMASIA (test code = 03799-1) 2+ See_Comment [Automated message] The system which generated this result transmitted reference range: 2+. The reference range was not used to interpret this result as normal/abnormal. BANDS (test code = 3553112268) Increased A Lab Interpretation (test code = 61332-4) Abnormal [facility] LancasterLaceration Dwrfyy1884-07-14 14:38:32Tim Adair MD ? ? 05/27/2023 ?8:39 AMLaceration Repair Date/Time: 05/27/2023 8:38 AM Performed by: Tim Adair MDAuthorized by: Tim Adair MD ?Consent: ?Consent obtained: ?Verbal ?Risks discussed: ?Poor wound healing, poor cosmetic result, pain and infectionUniversal protocol: ?Imaging studies available: yes ? ?Patient identity confirmed: ?Arm band and hospital-assigned identification numberAnesthesia: ?Anesthesia method: ?Local infiltration ?Local anesthetic: ?Lidocaine 1% w/o epiLaceration details: ?Location: ?Scalp ?Length (cm): ?4 ?Depth (mm): ?2Pre-procedure details: ?Preparation: ?Patient was prepped and draped in usual sterile fashion and imaging obtained to evaluate for foreign bodiesExploration: ?Hemostasis achieved with: ?Direct pressure ?Imaging outcome: foreign body not noted ? ?Contaminated: no ?Treatment: ?Area cleansed with: ?Chlorhexidine ?Amount of cleaning: ?Standard ?Irrigation method: ?Pressure wash ?Debridement: ?None ?Scar revision: no ?Skin repair: ?Repair method: ?Sutures ?Suture size: ?0-0 ?Wound skin closure material used: vicryl. ?Suture technique: ?Simple interrupted ?Number of sutures: ?4Approximation: ?Approximation: ?CloseRepair type: ?Repair type: ?SimplePost-procedure details: ?Dressing: ?Open (no dressing) ?Procedure completion: ?[facility]Un[facility]CT [facility] WO [id number] 14:37:29EXAM: CT HEAD WO CONTRAST, CT CERVICAL SPINE WO CONTRAST HISTORY: 68 years-old Female; Provided indication: Head trauma,moderate-severe. History obtained from [facility]: "Fall." TECHNIQUE: Axial CT of thehead and cervical spine was performed. Coronaland sagittal reformatted images were generated. COMPARISON: 12/25/2018. FINDINGS: HEAD: The ventricles and cerebral sulci are normal in caliber and configuration.No midline shift or pathological extra-axial fluid collection is present.The basal cisterns are unremarkable. There is a shallow acute subdural hematoma along the right parietotemporalcerebralconvexity measuring approximately 4 mm in maximum thickness. Thereis mild associated regional mass effect. No midline shift. No parenchymalattenuation abnormality is seen. The felipe-white matter differ entiation ispreserved. The mastoid air cells and paranasal air sinuses are clear. Left parietalscalp laceration and hematoma. The calvarium and central skull base areunremarkable. CERVICAL SPINE: There is reversal of cervical lordosis. Grade 1 anterolisthesis of C2 overC3, C3 over C4 and C4 over C5, unchanged. The vertebral bodies are normalin height. No acute fracture or subluxation identified. The atlantoaxial and craniocervical junctions are aligned. Moderate multilevel to the changes in theform of disc space narrowing,endplate sclerosis, osteophyte formation, facet and uncovertebralarthrosis, most pronounced at C5-C6 and C6-C7. The prevertebral soft tissues are unremarkable. Incidentalnote of hypodense right thyroid lobe nodule measuringapproximately 1.4 cm.Partially visualized cavitary lesion within the left upper lung.[facility] CERVICAL SPINE WO [id number] 14:37:29EXAM: CT HEAD WO CONTRAST, CT CERVICAL SPINE WO CONTRAST HISTORY: 68 years-old Female; Provided indication: Head trauma,moderate-severe. History obtained from [facility]: "Fall." TECHNIQUE: Axial CT of thehead and cervical spine was performed. Coronaland sagittal reformatted images were generated. COMPARISON: 12/25/2018. FINDINGS: HEAD: The ventricles and cerebral sulci are normal in caliber and configuration.No midline shift or pathological extra-axial fluid collection is present.The basal cisterns are unremarkable. There is a shallow acute subdural hematoma along the right parietotemporalcerebralconvexity measuring approximately 4 mm in maximum thickness. Thereis mild associated regional mass effect. No midline shift. No parenchymalattenuation abnormality is seen. The felipe-white matter differ entiation ispreserved. The mastoid air cells and paranasal air sinuses are clear. Left parietalscalp laceration and hematoma. The calvarium and central skull base areunremarkable. CERVICAL SPINE: There is reversal of cervical lordosis. Grade 1 anterolisthesis of C2 overC3, C3 over C4 and C4 over C5, unchanged. The vertebral bodies are normalin height. No acute fracture or subluxation identified. The atlantoaxial and craniocervical junctions are aligned. Moderate multilevel to the changes in theform of disc space narrowing,endplate sclerosis, osteophyte formation, facet and uncovertebralarthrosis, most pronounced at C5-C6 and C6-C7. The prevertebral soft tissues are unremarkable. Incidentalnote of hypodense right thyroid lobe nodule measuringapproximately 1.4 cm.Partially visualized cavitary lesion within the left upper lung.[facility] LancasterTROPONIN [id number] 14:16:54* Test Item Value Reference Range Interpretation Comme nts TROPONIN I (test code = 8882323159) 0.014 ng/mL <=0.034 BLAYNE (test code = BLAYNE) Reference (Normal) Range (defined by the 99th percentile reference limit): <= 0.034 ng/mL Note: Cardiac troponin begins to rise 3-4 hours after the onset of ischemia. Repeat in 4-6 hours if the sample was drawn within 3-4 hours of the onset of the symptom and found normal. Diagnosis of myocardial injury is made with acute changes in cTn concentrations with at least one serial sample above the 99th percentile upper reference limit (URL), taken together with the patient's clinical presentation. Biotin has been reported to cause a negative bias, interpret results relative to patient's use of biotin. Lab Interpretation (test code = 27583-6) Normal [facility] LancasterN-TERMINAL [id number] 14:14:11* Test Item Value Reference Range Interpretation Comme nts NT-proBNP (test code = 37165-5) 3030 pg/mL <=125 H BLAYNE (test code = BLAYNE) Positive: Heart Failure Likely Lab Interpretation (test code = 17679-9) Abnormal [facility]. METABOLIC PANEL (22362)2023-05-27 14:05:14* Test Item Value Reference Range Interpretation Comme nts NA (test code = 9223933344) 125 mmol/L 135-145 L K (test code = 7616852329) 4.1 mmol/L 3.5-5.0 CL (test code = 3942974568) 90 mmol/L 98-108 L CO2 TOTAL (test code = 5339769438) 19 mmol/L 23-31 L AGAP (test code = 0120652636) 16 2-16 BUN (test code = 3954859466) 63 mg/dL 7-23 H GLUCOSE (test code = 3879312582) 106 mg/dL 70-110 CREATININE (test code = 2160-0) 3.00 mg/dL 0.50-1.04 H TOTAL BILI (test code = 6092148610) 0.9 mg/dL 0.1-1.1 CALCIUM (test code = 3334327577) 8.7 mg/dL 8.6-10.6 T PROTEIN (test code = 1153352732) 7.0 g/dL 6.3-8.2 ALBUMIN (test code = 6419658021) 3.7 g/dL 3.5-5.0 ALK PHOS (test code = 0592887147) 99 U/L 34-122 ALTv (test code = 1742-6) 18 U/L 5-35 AST(SGOT) (test code = 0515933413) 82 U/L 13-40 H eGFR (test code = 38772-6) 16.5 mL/min/1.73m2 CKD-EPI eGFR (2020). Assuming creatinine has been stable day-to-day for at least three months, the eGFR indicates Category G4 (15 - 29 mL/min/1.73 m2) Lab Interpretation (test code = 15054-2) Abnormal [facility]2024-02-23 17:12:00* Test Item Value Reference Range Interpretation Comme nts Glucose POC (test code = Glucose POC) 132 70-99 Gluc POC Comment 1 (test cod e = Gluc POC Comment 1) Notified RN/ [facility]villeMvddmphMLYKKGXKA5873-04-90 16:28:00* Test Item Value Reference Range Interpretation Comme nts Glucose Lvl (test code = Glucose Lvl) 129 70-99 BUN (test code = BUN) 14 7-23 Creatinine Lvl (test code = Creatinine Lvl) 0.75 0.55-1.02 Sodium Lvl (test code = Sodium Lvl) 137 136-145 Potassium Lvl (test code = P otassium Lvl) 4.3 3.4-4.5 Chloride Lvl (test code = Chloride Lvl) 100 98-109 CO2 (test code = CO2) 27.8 20.0-31.0 Calcium Lvl (test code = Calcium Lvl) 8.7 8.3-10.6 AGAP (test code = AGAP) 13.5 10.0-20.0 eGFR (test code = eGFR) 87 [facility] CenterJixavbcXVKVRPOEHQ8361-23-70 16:28:00* Test Item Value Reference Range Interpretation Comme [facility] WBC (test code = WBC) 17.9 3.7-10.4 RBC (test code = RBC) 3.80 4.20-5.40 Hgb (test code = Hgb) 11.6 12.0-16.0 Hct (test code = Hct) 34.1 36.0-48.0 MCV (test code = MCV) 89.6 80.0-98.0 MCH (test code = MCH) 30.4 pg 27.0-31.0 MCHC (test code = MCHC) 33.9 32.0-36.0 RDW - CV (test code = RDW - CV) 12.8 11.5-14.5 Platelet (test code = Platelet) 302 133-450 MPV (test code = MPV) 8.2 7.4-10.4 RBC Morph (test code = RBC Morph) Normal (05/25/23 10:28 AM) Plt Morph (test code = Plt Morph) Normal (05/25/23 10:28 AM) Segmented Neutrophils (test code = Segmented Neutrophils) 87.5 45.0-75.0 Lymphocytes (test code = Lymphocytes) 5.2 20.0-40.0 Monocytes (test code = Monocytes) 7.0 2.0-12.0 Basophils (test code = Basophils) 0.3 <=1.0 Segmented Neutrophils # (test code = Segmented Neutrophils #) 15.6 1.5-8.1 Lymphocytes # (test code = Lymphocytes #) 0.9 1.0-5.5 Monocytes # (test code = Monocytes #) 1.3 <=0.8 [facility]NfjalysMZTUZI1324-24-31 14:16:55* Test Item Value Reference Range Interpretation Comme nts RADRPT (test code = RADRPT) Exam: Chest 1view DXReason for Exam: - post opComparison Exam: None availableDiscussion:Cardia c silhouette is within normal limits for size. No pulmonary edema nor pleural effusions appreciated. Ill-defined airspace opacification seen overlying the left upper lung. No appreciable pneumothorax. Multiple jameson are seen overlying the right lung apex.Impression:1. Ill-defined airspace opacification seen overlying the left upper lung. No appreciable pneumothorax. [facility] [id number] 10:26:00* Test Item Value Reference Range Interpretation Comme [facility] Ca Ion WB (test code = Ca Ion WB) 1.05 1.05-1.25 Ca Ion at pH 7.4 WB (test co de = Ca Ion at pH 7.4 WB) 1.09 1.05-1.25 Phosphorus (test code = Phosphorus) 4.7 2.4-5.1 Magnesium Lvl (test code = M agnesium Lvl) 2.31 1.60-2.60 [facility] CenterPoxlrwhXWGICQPLWL2755-70-82 02:50:00* Test Item Value Reference Range Interpretation Comme [facility] PTT (test code = PTT) 30.8 s 22.9-35.8 PT (test code = PT) 14.0 s 12.0-14.7 INR (test code = INR) 1.06 1 0.87-1.13 [facility] [employer] [id number] 21:09:00* Test Item Value Reference Range Interpretation Comme [facility] RBC product (test code = RBC product) Product available (05/23/23 3:09 PM) [facility] CenterTech[facility] Global [id number] 12:41:00* Test Item Value Reference Range Interpretation Comme [facility] ABO/Rh (test code = ABO/Rh) O NEG Antibody Scrn (test code = Antibody Scrn) Negative (05/23/23 6:41 AM) [facility] CenterGcyiwzfAGBTNXECZT4375-06-74 11:57:00* Test Item Value Reference Range Interpretation Comme nts Eosinophils (test code = Eosinophils) 0.9 <=4.0 Eosinophils # (test code = E osinophils #) 0.1 <=0.5 Basophils # (test code = Basophils #) 0.1 <=0.2 [facility] Consult Notes Date/Time Note Provider Source 2024-02-26 10:12:52 Associated Order(s): IP CONSULT TO INFECTIOUS DISEASES Images from the original note were not included. INFECTIOUS DISEASES Isaiah Melissa MD; Lita Askew MD; Shahbaz Rudd MD; Ganesh Ryder MD; Efrain Stanley MD; Tang Gautam MD; Ralph Johnson MD; Hunter Carr MD; Nini David MD;Ralph Johnson MD; Shiva Sprague MD; La Silveira MD; Vy Carrillo MD [facility] Office: [address] [place] [address] P: [phone] F: [phone] REQUESTING CLINICIAN: Dr Pérez REASON FOR CONSULTATION: Chronic Leg ulcer and suspected infection HISTORY OF PRESENT ILLNESS: Yara Vee is a/an 69 y.o. 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 Patient sees she has this ulcer for more than 1 year specially left lower extremity and always looks red due to chronic skin changes, she does have some drainage but is mostly clear, complains of more pain over the ulcer for the last 1 week. We are asked to evaluate if she needs any antibiotic. REVIEW OF SYSTEMS: 10 point ROS negative other than per HPI. PAST MEDICAL HISTORY: Active Ambulatory Problems Diagnosis Date Noted No Active Ambulatory Problems Resolved Ambulatory Problems Diagnosis Date Noted No Resolved Ambulatory Problems No Additional Past Medical History PAST SURGICAL HISTORY: Past Surgical History: Procedure Laterality Date CT ANGIOGRAM ABDOMEN PELVIS 05/04/2023 CT ANGIOGRAM ABDOMEN PELVIS 05/04/2023 FEMORAL BYPASS N/A 05/23/2023 RIGHT AXILLO- BIFEMORAL ARTERY BYPASS, RIGHT FEMORAL ENDARTERECTOMY WOUND DEBRIDEMENT Bilateral 08/17/2023 BILATERAL LOWER EXTREMITIES AND WOUND DEBRIDEMENTS SOCIAL HISTORY: [employer] Tobacco Use: High Risk (02/26/2024) Patient History Smoking Tobacco Use: Every Day Smokeless Tobacco Use: Unknown Passive Exposure: Not on file Alcohol Use: Not At Risk (09/06/2023) Received from [facility] CAGE C - Have you ever felt you should CUT DOWN on your drinking? : 0 A- Have people ANNOYED you by criticizing your drinking? : 0 G - Have you ever felt bad or GUILTY about your drinking? : 0 E - EYE WEIGHT AND TEST BAR CLERK: Have you ever had a drink first thing in the morning to steady your nerves or to get rid of a hangover? : 0 Financial Resource Strain: Low Risk (08/22/2023) Received from [facility] Overall Financial Resource Strain (CARDIA) Difficulty of Paying Living Expenses: Not hard at all Food Insecurity: No Food Insecurity (08/22/2023) Received from [facility] Hunger Vital Sign Worried About Running Out of Food in the Last Year: Never true Ran Out of Food in the Last Year: Never true Transportation Needs: No Transportation Needs (08/22/2023) Received from [facility] PRAPARE - Transportation In the past 12 months, has lack of transportation kept you from medical appointments or from getting medications?: No In the past 12 months, has lack of transportation kept you from meetings, work, or from getting things needed for daily living?: No Physical Activity: Sufficiently Active (08/22/2023) Received from [facility] Exercise Vital Sign Days of Exercise per Week: 3 days Minutes of Exercise per Session: 60 min Recent Concern: Physical Activity - Inactive (05/28/2023) Received from [facility] Exercise Vital Sign Days of Exercise per Week: 0 days Minutes of Exercise per Session: 0 min Stress: No Stress Concern Present (08/22/2023) Received from [facility] [place] [employer] - Occupational Stress Questionnaire Feeling of Stress : Not at all Social Connections: Unknown (08/22/2023) Received from [facility] Social Connection and Isolation Panel [NHANES] Frequency of Communication with Friends and Family: More than three times a week Frequency of Social Gatherings with Friends and Family: Not on file Attends Restorationist Services: Not on file Active Member of Clubs or Organizations: Not on file Attends Club or Organization Meetings: Not on file Marital Status: Not on file Depression: At risk (09/22/2020) Received from [facility] PHQ-2 PHQ-2 Results: 6 Housing Stability: Low Risk (08/22/2023) Received from [facility] Housing Stability Vital Sign Unable to Pay for Housing in the Last Year: No Number of Times Moved in the Last Year: 1 Homeless in the Last Year: No Health Literacy: Adequate Health Literacy (08/22/2023) Received from [facility] B1300 Health Literacy Frequency of need for help with medical instructions: Never FAMILY HISTORY: No family history on file. MEDICATIONS: aspirin, 81 mg, Oral, Daily lisinopril, 5 mg, Oral, Daily metoprolol succinate XL, 100 mg, Oral, Daily pravastatin, 40 mg, Oral, Nightly sodium chloride, 10 mL, Intravenous, q12h HENRY [START ON 02/27/2024] sodium chloride, 250 mL, Intravenous, Once nitroglycerin, sodium chloride, 75 mL/hr PRN medications: benzonatate, calcium carbonate, calcium gluconate, calcium gluconate, dextromethorphan-guaiFENesi n, dextrose, dextrose, dextrose, dextrose, famotidine, fentaNYL, GI cocktail (aluminum & magnesium hydroxide/simethicone/lidoc esteban), glucagon, glucagon, heparin, hydrALAZINE, HYDROmorphone, insulin lispro, iodixanol, ipratropium-albuterol, lidocaine, loperamide, magnesium oxide, magnesium sulfate, magnesium sulfate, magnesium sulfate, melatonin, midazolam (PF), morphine CR, nitroglycerin, nitroglycerin, ondansetron, ondansetron, polyethylene glycol (PEG) 3350, potassium & sodium phosphates, potassium chloride, potassium chloride, potassium chloride, Potassium chloride, potassium phosphate, potassium phosphate, senna-docusate, simethicone, Insert peripheral IV AND Saline lock IV AND sodium chloride, sodium chloride, sodium phosphate, sodium phosphate, traZODone, verapamil (Isoptin) 2.5 mg, nitroglycerin (Tridil) 100 mcg/mL 200 mcg syringe, artificial tears ALLERGIES: No Known Allergies PHYSICAL EXAMINATION: VITALS: BP 107/55 | Pulse 102 | Temp 36.9 ?C (98.4 ?F) | Resp 13 | Ht 1.651 m (5' 5") | Wt 50.4 kg (111 lb 1.8 oz) | SpO2 96% | BMI 18.49 kg/m? Intake/Output Summary (Last 24 hours) at 02/26/2024 1012 Last data filed at 02/26/2024 0846 Gross per 24 hour Intake -- Output 10 ml Net -10 ml GEN: 69yr old white female in No acute distress HEENT: Sclera anicteric; No oral erythema or thrush; Moist membranes LUNGS: Unlabored on room air, No respiratory distress HEART: RRR ABD: ND, No guarding, Soft EXT: No clubbing, cyanosis, or edema SKIN: left leg ulcer only partially evaluated as pt was in pain and did not want me to open wound, upper portion with necrotic slough noted. NEURO: Alert and oriented; No gross focal deficits PSYCH: Appropriate affect LABORATORY (Reviewed): Results from last 7 days Lab Units 02/26/24 0713 POC GLUCOSE mg/dL 96 No components found for: "SEDRATE" No lab exists for component: "SPECGRAVU", "BLOODU", "LEUKOCYTESU" Lines, Tubes, and Drains: Radial Compression Device 02/26/24 Right radial artery (Active) Placement Date/Time: 02/26/24 0848 Hand Hygiene Completed: Yes Location: Right radial artery Patient Tolerance: Tolerated well Number of days: 0 MICROBIOLOGY (Reviewed): Gram Stain No components found for: "LABGRAM" Sptutum No components found for: "SPTUMCX" Blood No results found for the last 90 days. Filters applied: Specimen Type. Urine No results found for the last 90 days. Filters applied: Specimen Type. Wound No results found for the last 90 days. Filters applied: Procedure. IMAGING/TESTS (Reviewed): Invasive vascular procedure CLI of the left leg Recommendations: 1. Will discuss with vascular 2. Admit for abx and wound care Current Antibiotics None ASSESSMENT:- Left lower ext chronic wound with some necrotic slough likely from PAD but did not see active infection - s/p angiogram today with finding occluded femoral and SFA artery - follows closely with [facility] wound care clinic as outpt. Never been biopdied to r/o pyoderma or marjolin's ulcer 2. PAD s/p ax bifemoral bypass 05/[address] Vaz 3. Thomas Danlos syndrome 4. Pulmonary fibrosis, COPD 5. HTN, DM PLAN:- - will hold off on abx as she says her leg always red due to chronic color change and the only change was lower ext pain worsening - will get wound cx - get wound care consult - vascular has been consulted - once cxs collected , will re evaluate ulcer tomorrow to see if she needs any abx , the last picture in system from 02/21 wound care note does not look infected - pt had MRI left leg 02/07 which did not show any OM or abscess , she may need biopsy of ulcer as outpt to r/o other etiology like pyoderma and marjolin's ulcer ruled out once her blood supply issue is resolved. La Silveira MD 02/26/2024 10:12 AM F OPERATING ENGINEER F OPERATING ENGINEER Infectious Diseases Physician [facility] 2023-05-28 11:03:00 Associated Order(s): CONSULT ADULT PHYSICAL THERAPY Patient agreeable to working with physical therapy. Patient met semi reclined in bed. Recommend nursing staff utilize RW to safely assist patient with mobility out of the bed or chair. PHYSICAL THERAPY EVALUATION Consult received, chart reviewed and evaluation complete this date. Patient is referred to PT for evaluation and treatment. Patient is a 68 year old female who presents to hospital for Trauma [T14.90XA] Subdural hematoma [S06.5XAA] . Ground level Fall Small Right SDH Thomas-Danlos Syndrome Chronic Left Hip Pain Discharge Recommendations: Therapy Needs and Potential: Patient would benefit from continued physical therapy services to address: decline in bed mobility decline in transfers decline in gait and/or balance decreased strength decreased endurance Patient demonstrates fair potential to improve and meet therapy goals with further physical therapy services. Patient appears motivated to improve their functional mobility and return to their previous level of function. Patient may benefit from Post Acute Physical Therapy in a Home Health setting. Challenges to Home Transition: increased risk of falls decreased caregiver availability decreased safety awareness environmental barriers Equipment recommendations: rolling walker Current Functional Status and/or Treatment: AM-PAC 6 Clicks (Raw Score 0=Dependent, 24=Independent; Low function Raw Score 0= Dependent, 32=Independent): Raw Score - Basic Mobility : 18 T-Scale Score - Basic Mobility : 41.05 Bed Mobility: Rolling: Supervision Supine-sit: Minimal Assistance Sitting balance Good Sit to supine: Minimal Assistance Patient requires 40% verbal/ visual cues for proepr hand/ foot placement and use of bed rails. Transfers: sit-stand: Supervision Stand to sit: Supervision using Rolling Walker Stand pivot transfer: Supervision Static/dynamic standing balance: Fair+ Patient requires 40% verbal/ visual cues for proepr hand/ foot placement and use of RW. Ambulation: Assisted patient with ambulation as follows: 100 feet using Rolling Walker and Supervision. Patient presenting with Step-to gait pattern. Instructed patient in directional changes and head movements in all planes during gait trial resulting in no instability and no LOB. Patient presents with antalgic gait on left LE Therapeutic exercise: patient educated in Adaptive equipment , Deep breathing, Energy conservation, Fall prevention, General strengthening, Positioning, Relaxation/breathing techniques, and Safety awareness., instructed patient in the following: ankle pumps, heel slides, hip abduction/adduction, and patient/caregiver instructed to perform HEP 1-2 times per day, 10 repetitions. Functional Outcome Measures: (Values within the past 12 hours) Tinetti Gait Score- # / 12 Initiation of gait: No hesitancy Step length: Only on foot passes the other Foot clearance: Only one foot clears the floor during swing phase Step Symmetry: Step lengths not equal Step continuity: Stopping/dis-continuous steps Path: Marked deviation Trunk: Marked sway or uses AD Walking: Heels apart Tinetti Gait Score: 3 Tinetti Gait Score Interpretation: < 7 - Increased risk for falls TINETTI BALANCE SCORE- # / 16 Sitting balance: Steady, safe Arises: Able, uses arms to help Attempts to Rise: Able, requires > 1 Immediate standing balance (first 5 sec): Steady but uses walker or other support Standing Balance: Steady but SHARRI > 4 inches or uses AD/other support Nudged 3 times *: Staggers, grabs, catches self Eyes closed*: Unsteady Turning 360 degrees: Discontinuous steps and unsteady Sitting down: Unsafe Tinetti Balance Score: 6 Tinetti Balance Interpretation: < 9 - Increased risk for falls After session, patient semi reclined in bed. Call button provided. Communicated with [facility] ICU-RN PLAN OF CARE: While in the hospital, PT will follow patient at least 2 times per week,once or twice a day, per patient's tolerance and needs. See below for complete details. Admit Date: 05/27/2023 Hospital Diagnosis:Trauma [T14.90XA] Subdural hematoma [S06.5XAA] PT Diagnosis: Difficulty walking, Weakness, Pain, Abnormality of gait and balance, and Integument compromise Weight Bearing Precaution: NA General Precautions: PPE used:Gloves, General, Fall, Head of bed 30?,Purewick catheter, IV x, Wound VAC Bracing/Cast present or required:N/A PMH: Past Medical History: Diagnosis Date Anxiety Chronic hip pain left Thomas-Danlos syndrome HTN (hypertension) PSH: No past surgical history on file. Prior Living Situation: lives alone, in a single story house, has dog-great leroy, no steps . Son lives nearby and checks on her daily. DME: Single Point Cane, Rolling Walker, Four wheeled walker with seat Prior level of Mobility: house hold ambulation, ambulates with Straight Cane Suspected ischemic or hemorraghic stroke:No Subjective: C/O Lower back pain PS 6/10 Patient/Family Goals: "I want to go home" Patient/Family verbalizes understanding of condition: Yes PAIN: -Pain Description: aching and constant -Pain Location: lower back -Pain rating before treatment: 6, After treatment: does not rate -Pain Management: Decreased movement aides in some pain reduction, Use of assistive device aides in pain reduction during mobility, and Repositioning Provided COMMUNICATION Primary Language: Persian Able to Verbalize needs: Yes Vision:reading glasses Hearing:good; no issues reported ORIENTATION/COGNITION: Oriented to: person, place, date/time, and situation Awake: Yes Alert: Yes Dizzy: No Follows Commands: Yes 1-Step Yes Multi-Step No Inconsistent: No NEUROLOGICAL Light Touch: within functional limits bilateral LE Heel to yadav: WFL Tone: WFL BALANCE: Sitting: Static: Good Dynamic: Good Standing: Static: Fair+ Dynamic: Fair RANGE OF MOTION: within functional limits bilateral LE STRENGTH: 4-/5 (G-), bilateral LE ENDURANCE: Fair, Room air SKIN INTEGRITY: not intact, please see nurses notes for details. PROBLEM LIST: Decline in bed mobility, Decline in gait, Decline in transfers, Decreased strength, Decreased endurance, Decreased balance, Safety awareness deficits, and Pain ASSESSMENT: Patient is a 68 year old female seen secondary to the above listed diagnosis. Patient would benefit from continued PT to address the above listed deficits to maximize independence and safety with functional mobility. Rehabilitation Potential: fair Goals: The following goals are to maximize independence and safety with functional mobility to eventually return to prior living situation and prior functional status. Upon discharge, patient and/or family will demonstrate the followin. Rolling: Independent Supine-sit: Independent Sitting balance Excellent Sit to supine: Independent 2. sit-stand: Independent Stand to sit: Independent using Rolling Walker Stand pivot transfer: Independent 3. Independent with ambulation, Feet: 300 using least assistive device. 4. Demonstrate or verbalize understanding of home exercise program in order to continue with their rehab on their own. Treatment Plan: Gait training, Therapeutic exercise, Transfer training, Balance training, Bed mobility training, Equipment needs assessment, Safety education, patient/caregiver education, Pain management, and Neuromuscular Re-Education PATIENT EDUCATION: Patient provided with preferred teaching of verbal information and demonstration on role of PT, plan of care, D/C Planning. Shows readiness to learn. Verbal instruction and Demonstration teaching provided. Individual is able to read and verbalizes understanding of teaching provided and accurately returns demonstration of skill. Total Time Tx Codes in Minutes: 15 min Total Treatment Time in Minutes: 25 min Jonnie Chatman PT, DPT [facility] Physical Therapy Rehabilitation Services F OPERATING ENGINEER Jonnie Chatman PT [facility] 2023-05-28 09:10:00 Associated Order(s): CONSULT ADULT OCCUPATIONAL THERAPY OT GENERAL EVALUATION Consult received via [employer], EMR reviewed and evaluation completed 05/28/23. Patient referred to occupational therapy for evaluation and treatment secondary to fall with SDH on R side and history of chronic limb ischemia. Patient agreeable to participate in occupational therapy. Discharge Recommendations: Therapy Needs and Potential:- Patient would benefit from continued skilled occupational therapy services to address: Decline in basic activities of daily living, Decline in instrumental activities of daily living, Decreased strength, Decreased range of motion, and Decreased endurance - Patient demonstrates good potential to improve and meet therapy goals with further skilled occupational therapy services. - Patient appears motivated to improve their B/IADLs and return to their previous level of function. - Patient demonstrates ability to tolerate at least 30-60 minutes of active participation in occupational therapy. - Patient able to follow commands: 1-step Yes, Multi-step Yes, Inconsistencies No Challenges to Home Transition:- Requires physical assistance for BADLS - Requires physical assistance for IADLS - Requires supervision or verbal cues for BADLS - Limited caregiver availability - Decreased safety awareness/judgement - Increased risk of falls - Environmental barriers Equipment Recommendations:Bedside commode PLAN OF CARE: At least 3x/week Precautions: Weight bearing status: WBAT JUVE LE General: PPE Utilized: Gloves and Fall and Cardiac monitoring Bracing: N/A Current Occupational Performance and/or Treatment: AM-PAC 6 Clicks (Raw Score 0=Dependent, 24=Independent; Low function Raw Score 0= Dependent, 32=Independent): Raw Score - Daily Activity: 17 T-Scale Score - Daily Activity: 37.26 Feeding: Independent, with breakfast tray Grooming: Independent, with oral care UB Bathing: Minimal Assistance, with nursing when performing bed bath LB Bathing: Maximum Assistance, with nursing when performing bed bath/wipe down UB Dressing: Independent, with donning and doffing of gown LB Dressing: Maximum Assistance, with donning of diaper and socks Tub/Shower Transfer: Minimal Assistance, simulated for tub transfer at bedside - requires verbal cueing to go slow Toilet Transfer: Minimal Assistance, for ascent from seated position on commode but was Supervision in descent Toileting Hygiene: Independent Functional Mobility: Patient performed bed mobility from supine to edge of bed with min A and once at edge of bed required min A secondary to "stiffness" per patient in LE's - She ambulated to restroom and performed toilet transfer with Supervision in descent and min A with ascent. Patient/caregiver educated on:ADL training using Compensatory techniques/adaptive strategies for LB dressing ( figure four and long sitting in bed) and performance of transfers off and on toilet, Fall prevention in all ADL performance, Positioning to JUVE LE's with heels suspended off pillow to prevent breakdown, Role of OT in care, and Safety awareness when OOB - patient is slow to perform tasks and is at high risk for falls Patient left semireclining in bed with call diallo in reach. Vital signs stable . Please, see full evaluation below for more detail. OT EVALUATION: 68 year old female Admit date: 05/27/2023 Date of onset: 05-27-2023 Admit Diagnosis: Trauma [T14.90XA] OT Diagnosis: Impaired BADL independence, Impaired IADL independence, Weakness, Activity intolerance, Decreased endurance, Impaired self-care mobility, and Pain PMH: Past Medical History: Diagnosis Date Anxiety Chronic hip pain left Thomas-Danlos syndrome HTN (hypertension) PSH: No past surgical history on file. PAIN: Pain Location: lower back and upper back Pain rating before treatment: 7, After treatment: 7 Pain Management: Nursing Notified and Repositioning Provided OCCUPATIONAL ROLES/HOME ENVIRONMENT: Home environment: Lives alone, 23/10 supervision/assistance is not available, and Single story home. Bathroom access: Yes Bathroom setup: Tub, Shower, and Combo Occupation(s): Retired Function prior to admission: Independent with BADLs and Independent with IADLs Suspected ischemic or hemorraghic stroke patient: No Equipment prior to admission: Rolling Walker, Shower chair , Straight Cane, Wheelchair PERFORMANCE SKILLS/FACTORS: UE Muscle Tone: bilateral WNL UE ROM: bilateral AROM WFL except L shoulder flexion is only 90 degrees from previous injury UE Strength: JUVE UE WFL except L shoulder is 2/5 Hand dominance: right Dexterity/Coordination: bilateral Fine motor skills Intact Endurance - Sitting: Good Standing: Fair Sitting Balance - Static: Good Dynamic: Good Standing: Balance - Static Fair+ Dynamic: Fair Dizziness: No Skin Integrity: defer full skin assessment to nursing, Edema, and scattered areas to JUVE ankles and lower legs from previous Sensation: bilateral Intact to light touch Oral Motor: WFL Communication: Able to verbalize needs Yes Other: N/A Vision: WFL Yes Other: glasses or contacts Hearing: good; no issues reported COGNITION: Orientation: person, place, date/time, and situation Follows Commands: 1-step Yes Multi-step Yes Inconsistencies No Safety Awareness/Judgment: Fair PROBLEM LIST: Decreased independence with ADL, Decreased functional ROM, and Decreased strength/endurance for functional activity REHAB POTENTIAL/PROGNOSIS: good PATIENT/FAMILY GOALS: "to go home" TREATMENT/INTERVENTION PLAN: Patient/Caregiver Education, Equipment recommendations, and Daily living activities GOAL(S): By discharge, patient will increase independence in daily living skills as follows: 1 Patient will perform toilet transfer with independence. 2 Patient will perform bathing task to lower legs with supervision. 3 Patient will perform LB dressing with supervision and use of adaptive equipment. 4 Patient will complete grooming tasks with independence while standing at the sink. 5 Patient will complete toileting hygiene, including clothing management, with independence. 6 Patient/caregiver will verbalize/demonstrate understanding/proficiency in the following home programs: Adaptive equipment , Compensatory techniques/adaptive strategies, Energy conservation, Fall prevention, General strengthening, and Towel/dowel PATIENT-FAMILY TEACHING Patient provided with preferred teaching of verbal information and demonstration on ADL training, Compensatory techniques/adaptive strategies, Fall prevention, Positioning, Role of OT, and Safety awareness. Shows readiness to learn. Verbal instruction and Demonstration teaching provided. Individual is able to read and verbalizes understanding of teaching provided. Selvin CastroTBlaise [phone] [facility]. Total Timed Treatment Codes: 40 Min Total Treatment Time: 50 Min Patient Complexity Level High - An occupational therapy evaluation of high complexity was completed using the above tests and measures. The following information was obtained: An occupational profile and medical and therapy history, including review of medical and/or therapy records and extensive additional review of physical, cognitive, or psychosocial history related to current functional performance, Various standardized and non-standardized assessments were used to identify at least 5 or more performance deficits related to physical, cognitive, or psychosocial skills that result in activity limitations and/or participation restrictions, and Clinical decision-making is of high analytic complexity, which includes an analysis of the patient profile, analysis of data from comprehensive assessment(s), and consideration of multiple treatment options. Patient present with comorbidities that affect occupational performance. Significant modification of tasks or assistance (e.g., physical or verbal) with assessment(s) is necessary to enable patient to complete evaluation component. [facility] 2023-05-27 12:24:40 Associated Order(s): CONSULT NEUROSURGERY NEUROSURGERY CONSULTATION HISTORY AND PHYSICAL Attending Neurosurgeon: Dr. Pritchett Reason for Consultation: R SDH HPI: Yara Vee is a 68 year old female w/ Hx of recent axillary to bifemoral bypass for bilateral critical limb ischemia on 05/23/23 at [facility] on xarelto (last dose 05/22/23) and aspirin (last dose yesterday), HTN, HLD, thomas danlos with severe joint pain arthritis on chronic narcotic, pulmonary fibrosis who presents after a ground level fall. Pt denies headache, was feeling nauseous but that has since resolved. Pt has chronic lower back pain but that is unchanged and denies any radiculopathy. Pt denies neck pain or radic down arms. Medications No current facility-administered medications on file prior to encounter. Current Outpatient Medications on File Prior to Encounter Medication Sig Dispense Refill lisinopril 10 mg tablet Take 1 tablet by mouth daily. 30 tablet 0 metoprolol succinate XL 100 mg 24 hr tablet Take 100 mg by mouth daily. pravastatin 40 mg tablet Take 40 mg by mouth at bedtime. tiZANidine (ZANAFLEX) 4 mg capsule Take 4 mg by mouth daily. MORPHINE SULFATE (MS CONTIN ORAL) Take 100 mg in am, 60 mg at noon, 60 mg in pm Past Medical History: Past Medical History: Diagnosis Date Anxiety Chronic hip pain left Thomas-Danlos syndrome HTN (hypertension) Past Surgical History: No past surgical history on file. Social History: Social History Tobacco Use Smoking status: Some Days Packs/day: .25 Types: Cigarettes Smokeless tobacco: Never Substance Use Topics Alcohol use: Not Currently Family History: Family History Problem Relation Age of Onset Other - see comments Mother Heart Brother ROS (BOLDED IF POSITIVE - otherwise negative) Constitutional: Nausea, Vomiting, Fevers, Chills Eyes: Diplopia, Amaurosis Fugax, Blurred Vision Ears, nose, mouth, and throat: Negative Endocrine: Negative Hematologic: Negative Card: Chest pain, Palpitations Pulm: Cough, Shortness of breath GI: Diarrhea, Constipation, Incontinence : Incontinence, Retention, Hematuria, Dysuria Integ: Masses, Rashes, Lesions Msk: Weakness, Pain Neuro: Headache, Vision changes, Dizziness, Weakness, Discoordination, Changes in sensation, Speech difficulty, Memory disturbances PE Vitals: Vitals: 05/27/23 1111 05/27/23 1113 05/27/23 1114 05/27/23 1115 BP: (!) 86/61 Pulse: 104 Resp: 20 20 20 SpO2: 100% Weight: 54.4 kg (120 lb) Height: 1.651 m (5' 5") Awake, alert, oriented x3 PERRL bilaterally at 3mm EOMI bilaterally Face symmetric Tongue midline Intact CNI-XII UPPER EXTREMITY STRENGTH EXAM: R 5/5 5/5 5/5 5/5 5/5 D(C5) B(C6) T(C7) Tool/Die Maker(C8) I (T1) L 5/5 5/5 5/5 5/5 5/5 LOWER EXTREMITY STRENGTH EXAM: R 5/5 5/5 5/5 5/5 5/5 IP(L2) Q(L3) TA(L4) EHL(L5) G(S1) L 5/5 5/5 5/5 5/5 5/5 Sensation intact to LT throughout Exam deep tendon: 2+ patellars BL No drift No clonus No Patel's Labs: Recent Labs 05/27/23 0715 05/27/23 1119 WBC 18.20* 15.10* HGB 10.8* 9.1* HCT 32.1* 26.8* PLT 326 290 ] Recent Labs 05/27/23 0715 05/27/23 1119 NA 125* 125* K 4.1 4.1 CL 90* 94* TCO2 19* 18* BUN 63* 60* CREAT 3.00* 2.38* GLU 106 86 CA 8.7 7.8* ] No results for input(s): "ACPH", "ACPCO2", "ACPO2", "ACHCO3", "ACNA", "ACK", "ACCAIONZ", "ACBE" in the last 72 hours. Recent Labs 05/27/23 1119 PTPAT 12.2 PTINR 1.1 APTTPAT 27 No results for input(s): "UPROTEIN", "UGLUCOSE", "UKETONES", "UBILI", "UBLOOD", "UUROBILIN", "ULEUKEST", "UNITRITE", "USPGRAV" in the last 72 hours. @1LFT@ No results for input(s): "PHENYTOIN", "PHENYFREE" in the last 72 hours. Imaging: CT THORAX WO CONTRAST Result Date: 05/27/2023 Impression: No evidence of an acute traumatic injury in the chest, abdomen, and pelvis. Severe emphysema. Multiple clusters of nodules mostly in the left upper lobe with some of the largest seen anteriorly and medially measuring up to 1.0 cm. These are likely inflammatory/postinflammato ry. 3.2 cm thick-walled cavity in the left upper lobe, which is likely to reflect infection/inflammation. Malignancy cannot be excluded and follow-up is recommended. RL: 781 HS: Y ABDOMEN PELVIS WO CONTRAST Result Date: 05/27/2023 Impression: No evidence of an acute traumatic injury in the chest, abdomen, and pelvis. Severe emphysema. Multiple clusters of nodules mostly in the left upper lobe with some of the largest seen anteriorly and medially measuring up to 1.0 cm. These are likely inflammatory/postinflammato ry. 3.2 cm thick-walled cavity in the left upper lobe, which is likely to reflect infection/inflammation. Malignancy cannot be excluded and follow-up is recommended. RL: 781 HS: Y HEAD WO CONTRAST Result Date: 05/27/2023 Shallow acute right cerebral convexity subdural hematoma. No midline shift. No acute cervical spine fracture. Partially visualized cavitary lesion within the left upper lung. Dedicated CT of the chest is recommended for further evaluation on nonemergent basis. Critical findings of acute subdural hematoma were discussed with Dr. Tim Adair at 8:35 AM on 05/27/[address] CERVICAL SPINE WO CONTRAST Result Date: 05/27/2023 Shallow acute right cerebral convexity subdural hematoma. No midline shift. No acute cervical spine fracture. Partially visualized cavitary lesion within the left upper lung. Dedicated CT of the chest is recommended for further evaluation on nonemergent basis. Critical findings of acute subdural hematoma were discussed with Dr. Tim Adair at 8:35 AM on 05/27/2023 via the telephone. Assessment:Yara Vee is a 68 year old female who presents after GLF. Pt was found to have small R SDH. Pt is on hasn't taken xarelto in 5 days but took aspirin yesterday, will get repeat head CT to see if she needs to be reversed. Pt is otherwise neuro intact. Recommendations: Repeat HCT now to assess stabilization Hold anticoag/antiplatelet Head of bed >30 degrees Recommend holding aspirin 7 days and xarelto 14 days Alejandro Del Cid MD Neurosurgery Service For inquiries please page [phone] F OPERATING ENGINEER Associated attestation - Ziyad Pritchett MD - 05/29/2023 12:03 PM CHIEF OPERATING ENGINEER Faculty Addendum: I independently and actively participated in the clinical decision making and agree with the resident note by Dr. Del Cid with no changes. Ziyad Pritchett MD [facility] Neurosurgery NS-NEUROLOGICAL SURGERY [facility] - Health History and Physical Notes RIGHT LEFT Date/Time Note Provider Source 2024-02-26 09:37:37 Images from the original note were not included. HOSPITALIST HISTORY & PHYSICAL Name: Yara Vee : 1955 Age: 69 y.o. CSN: [id number] ASSESSMENT & PLAN: Yara Vee is a 69 y.o. female who presented on 02/26/2024 for PAD. She has a PMH of HTN, DM, PAD s/p AX bifemoral bypass 05/26, Thomas Danlos Syndrome, BLE ulcers, SDH, Pulmonary fibrosis, and COPD. She presents with non-healing LLE ulcer with concern for bone exposure. She underwent angiogram conssitent with LLE occlusion. Therefore she is being admitted for vascular evaluation and wound care / like evaluate and treat for OM. She has no other complaints at this time. ASSESSMENT AND PLAN: Acute medical problems: LLE infection, occluded LLE with history of Ax bifemoral bypass in 05/26 - for now, heparin drip instead of xarelto PAD dose, discuss with vascular regarding her options, cont ASA for now - consult ID Dr. Silveira, appreciate, not septic will hold off on abx until cultures obtained and her evaluation. Will compare to previous wound photo in clinic taken 02/21, she reports increased drainage (clear) and pain over last 1 week. - for pain control cont her home morphine ER and add dilaudid for breakthrough Chronic Medical Problems that contribute to medical complexity: ` HTN, cont lisinopril 5mg, meto XL 100mg Depression, cont home xymbalta Volume, can give lasix prn like home dose DM, hold metformin and SSI HLD, cont pravastatin Sleep, trazodone prn ordered Disposition: 7e VTE proph: heparin drip for now 6 hours after sheath removal Electronically signed by: Bear Pérez MD, 02/26/2024 at 9:38 AM Chief Complaint: PAD HPI: Yara Vee is a 69 y.o. female who presented on 02/26/2024 for PAD. She has a PMH of HTN, DM, PAD s/p AX bifemoral bypass 05/26, Thomas Danlos Syndrome, BLE ulcers, SDH, Pulmonary fibrosis, and COPD. She presents with non-healing LLE ulcer with concern for bone exposure. She underwent angiogram conssitent with LLE occlusion. Therefore she is being admitted for vascular evaluation and wound care / like evaluate and treat for OM. She has no other complaints at this time. ROS: The pertinent positives and negatives are noted in the HPI. All other systems are negative. PAST HISTORY: PMH: TN, DM, PAD s/p AX bifemoral bypass 05/26, Thomas Danlos Syndrome, BLE ulcers, SDH, Pulmonary fibrosis, and COPD PSH: Past Surgical History: Procedure Laterality Date CT ANGIOGRAM ABDOMEN PELVIS 05/04/2023 CT ANGIOGRAM ABDOMEN PELVIS 05/04/2023 FEMORAL BYPASS N/A 05/23/2023 RIGHT AXILLO- BIFEMORAL ARTERY BYPASS, RIGHT FEMORAL ENDARTERECTOMY WOUND DEBRIDEMENT Bilateral 08/17/2023 BILATERAL LOWER EXTREMITIES AND WOUND DEBRIDEMENTS . Surgical history reviewed, not pertinent unless noted in HPI FH: Family history reviewed, are negative and not pertinent unless noted in the HPI SH: Social History Socioeconomic History Marital status: Spouse name: Not on file Number of children: Not on file Years of education: Not on file Highest education level: Not on file Occupational History Not on file Tobacco Use Smoking status: Every Day Smokeless tobacco: Not on file Substance and Sexual Activity Alcohol use: Not Currently Drug use: Not on file Sexual activity: Not on file Other Topics Concern Not on file Social History Narrative Not on file Social Drivers of Health Financial Resource Strain: Low Risk (08/22/2023) Received from [facility] Overall Financial Resource Strain (CARDIA) Difficulty of Paying Living Expenses: Not hard at all Food Insecurity: No Food Insecurity (08/22/2023) Received from [facility] Hunger Vital Sign Worried About Running Out of Food in the Last Year: Never true Ran Out of Food in the Last Year: Never true Transportation Needs: No Transportation Needs (08/22/2023) Received from [facility] PRAPARE - Transportation In the past 12 months, has lack of transportation kept you from medical appointments or from getting medications?: No In the past 12 months, has lack of transportation kept you from meetings, work, or from getting things needed for daily living?: No Physical Activity: Sufficiently Active (08/22/2023) Received from [facility] Exercise Vital Sign Days of Exercise per Week: 3 days Minutes of Exercise per Session: 60 min Recent Concern: Physical Activity - Inactive (05/28/2023) Received from [facility] Exercise Vital Sign Days of Exercise per Week: 0 days Minutes of Exercise per Session: 0 min Stress: No Stress Concern Present (08/22/2023) Received from [facility] [place] [facility] [employer] [facility] - Occupational Stress Questionnaire Feeling of Stress : Not at all Social Connections: Unknown (08/22/2023) Received from [facility] Social Connection and Isolation Panel [NHANES] Frequency of Communication with Friends and Family: More than three times a week Frequency of Social Gatherings with Friends and Family: Not on file Attends Restorationist Services: Not on file Active Member of Clubs or Organizations: Not on file Attends Club or Organization Meetings: Not on file Marital Status: Not on file Intimate Partner Violence: Not on file Housing Stability: Low Risk (08/22/2023) Received from [facility] Housing Stability Vital Sign Unable to Pay for Housing in the Last Year: No Number of Times Moved in the Last Year: 1 Homeless in the Last Year: No ALL: No Known Allergies Patient history reviewed and updated. PHYSICAL EXAM: 02/26/2024 6:45 AM 02/26/2024 7:00 AM 02/26/2024 7:15 AM 02/26/2024 7:30 AM 02/26/2024 7:45 AM 02/26/2024 8:00 AM 02/26/2024 8:58 AM Vitals BMI 18.49 kg/m2 BSA (m2) 1.52 m2 Systolic 107 116 Diastolic 65 59 Heart Rate 104 102 102 100 104 106 104 Temp 36.9 ?C (98.4 ?F) Resp 26 13 17 11 9 20 20 Height (in) 1.651 m (5' 5") Weight (lb) 111.11 GEN: deconditioned, alert and orientated HEENT: pupils equal, round, no cervical lymphadenopathy NEURO: nonfocal, answers questions and follows commands CV: RRR, no murmur, no JVD noted PULM: clear to ausculation, normal effort GI: soft +bs, not tender EXT: LLE exposed wound LABS/IMAGING: pending Pertinent for: Electronically signed by: Bear Pérez MD, 02/26/2024 at 9:38 AM F OPERATING ENGINEER Internal Medicine Physician [place] The bilateral GSV at the knee were too narrow. The right GSV was non compressible distally Shereen / Doppler: 01/2023 RIGHT LOWER EXTREMITY: There is irregular soft calcified plaque in the arteries with monophasic waveforms, suggestive of aortoiliac disease. There is diminished flow in the lower leg. The resting SHEREEN and great toe pressure are not calculated due to wounds at cuff site. LEFT LOWER EXTREMITY: There is irregular soft calcified plaque in the arteries with monophasic waveforms, suggestive of aortoiliac disease. There is no flow noted in the mid superficial femoral artery, suggestive of a near to total occlusion with collaterals noted. There is diminished flow in the lower leg. The resting SHEREEN and great toe pressure are not calculated due to wounds at cuff site. Study suggestive of aortoiliac disease. Consider CTA Aorta with BLE runoffs if clinically indicated. RIGHT LOWER EXTREMITY: ARTERY WAVEFORM VELOCITY ARTERY WAVEFORM VELOCITY EIA Monophasic 91 cm/s POP Monophasic 34 cm/s OUTCOMES MANAGER Monophasic 58 cm/s POP Distal Monophasic 31 cm/s PFA Monophasic 59 cm/s NOEMI Monophasic 29 cm/s SFA Monophasic 46 cm/s PER Monophasic 27 cm/s SFA Mid Monophasic 55 cm/s CHILD PSYCHOLOGY TEACHER Monophasic 27 cm/s SFA Distal Monophasic 75 cm/s DPA Monophasic 12 cm/s Resting SHEREEN (DP/PT) NA GREAT TOE PRESSURE mmHg NA LEFT LOWER EXTREMITY: ARTERY WAVEFORM VELOCITY ARTERY WAVEFORM VELOCITY EIA Monophasic 128 cm/s POP Monophasic 37 cm/s OUTCOMES MANAGER Monophasic 69 cm/s POP Distal Monophasic 52 cm/s PFA Monophasic 95 cm/s NOEMI Monophasic 34 cm/s SFA Monophasic 49 cm/s PER Monophasic 17 cm/s SFA Mid Monophasic 34 cm/s CHILD PSYCHOLOGY TEACHER Monophasic 29 cm/s SFA Distal Monophasic 48 cm/s DPA Monophasic 14 cm/s RESTING SHEREEN (DP/PT) NA GREAT TOE PRESSURE mmHg NA CTA abd pelvis aorta 05/2023 1.Atherosclerotic abdominal aorta without aneurysm, dissection or aortitis. 2.Bilateral lower lung mild bronchial dilatation and groundglass opacities. Differential diagnoses include infectious/inflammatory process in proper clinical setting. Recommend short-term 1-[address] chest follow-up. 3.Nonspecific dilatation of the common bile duct, up to 9 mm. Recommend clinical correlation. SHEREEN doppler 02/06/2024 RIGHT LOWER EXTREMITY: ARTERY WAVEFORM VELOCITY ARTERY WAVEFORM VELOCITY EIA Triphasic 99 cm/s POP Biphasic 56 cm/s OUTCOMES MANAGER Triphasic 85 cm/s POP Distal Biphasic 61 cm/s PFA Triphasic 84 cm/s NOEMI Biphasic 49 cm/s SFA Triphasic 76 cm/s PER Biphasic 50 cm/s SFA Mid Triphasic 98 cm/s CHILD PSYCHOLOGY TEACHER Biphasic 69 cm/s SFA Distal Triphasic 106 cm/s DPA Biphasic 46 cm/s Resting SHEREEN (DP/PT) not obtained GREAT TOE PRESSURE mmHg 114, TBI 1.14 LEFT LOWER EXTREMITY: ARTERY WAVEFORM VELOCITY ARTERY WAVEFORM VELOCITY EIA Monophasic 72 cm/s POP Monophasic 61 cm/s OUTCOMES MANAGER Monophasic 111 cm/s POP Distal Monophasic 54 cm/s PFA Monophasic 144 cm/s NOEMI Monophasic 39 cm/s SFA Monophasic 83 cm/s PER Monophasic 68 cm/s SFA Mid Monophasic 482 cm/s CHILD PSYCHOLOGY TEACHER Monophasic 30 cm/s SFA Distal Monophasic 78 cm/s DPA Monophasic 17 cm/s RESTING SHEREEN (DP/PT) not obtained GREAT TOE PRESSURE mmHg 39, TBI 0.39 RFVA 02/08/2024 RIGHT LEFT + +----+ + + +----+ + |SVT(+ / -)|DIAM|REFLUX(ms)| LOCATION |SVT(+ / -)|DIAM|REFLUX(ms)| + +----+ + + +----+ + | | | | GSV | | | | + +----+ + + +----+ + | Negative |0.65| 5692 |Junction (SFJ)| Negative |0.70| 4961 | + +----+ + + +----+ + | Negative |0.55| 4807 | Proximal | Negative |0.55| 3368 | + +----+ + + +----+ + | Positive | | | Mid | Negative | | | + +----+ + + +----+ + | Positive |0.18| 0 | Distal | Negative |0.14| 0 | + +----+ + + +----+ + | | | | GSV CALF | | | | + +----+ + + +----+ + | Positive |0.13| | LGSV Prox | Negative |0.13| | + +----+ + + +----+ + | Negative |0.13| 0 | LGSV Mid | Negative |0.20| 0 | + +----+ + + +----+ + | Negative |0.12| | LGSV Distal | Negative |0.17| | + +----+ + + +----+ + | | | | SSV | | | | + +----+ + + +----+ + | |n/s | |Junction (SPJ)| |n/s | | + +----+ + + +----+ + | Negative |0.13| 0 | Proximal | Negative |0.21| 0 | + +----+ + + +----+ + | Negative |0.17| 0 | Mid | Negative |0.12| 0 | + +----+ + + +----+ + | Negative |0.13| | Distal | Negative |0.10| | + +----+ + + +----+ + | | | | | | | | + +----+ + + +----+ + | Negative |0.35| 2746 | AASV | Negative |0.32| 0 | + +----+ + + +----+ + Assessment / Plan: Thomas Danlos Syndrome PAD with abnormal doppler / Critical Limb ischemia Wounds on the left leg still not healing Doppler shows aorto/iliac disease possible left SFA closure 05/22/23: S/p KARUNA 05/22/23 occluded left SFA and severe infrarenal aortic disease 05/23/23: S/p axillary bifemoral bypass and right femoral endarterectomy by Dr. Anne and Татьяна 07/16/2023: S/p HOME ADMINISTRATOR CHILD PSYCHOLOGY TEACHER of the left SFA 02/11/2024: patient still with persistent left LE ulcer Now with left mid SFA velocity of 400ms+ > Condition status 02/11/24: stable, Risk of complications / morbidity / mortality: moderate > Patient with unhealing ulcer, now with restenosis of the left SFA > Lower extremity angiogram (left PT access - try to avoid femorals, also radial pulses are weak, check it with u./s, try right radial) The patient was apprised of the risks of the procedure. These risks included, but were not limited to: , heart attack, stroke or other medical complications, infection, nerve/artery injury, blood clots with the possibility of embolism or thrombosis and need for anticoagulation, pneumothorax, excessive bleeding, and prolonged hospital stay. The patient understood these risks and the patient's questions were answered. Yara Vee has elected to proceed with the procedure. Tobacco use disorder Patient counseled on risks of continued tobacco use Strategies to avoid all tobacco products and tobacco smoke were discussed Less that pd [facility]2024-05-18 16:00:00* Bear Pérez MD: MODIFY, PERFORMEvent Display: History and PhysicalAuthored Date: [id number] MedicineMemoriCedar Park Regional Medical CenterAssessment and PlanAcute Medical Problems:LLE wound infection, history of severe PAD- abx ID consult- severe PAD s/p axillary bifemoral graft here in May 2023. Obtain some arterial and venous dopplers and consult Dr. Vaz t see if if intervention warranted- pain control- cont home aspirin and PAD dose xareltoChronic Medical Problems that contribute to medical complexity:Chronic Pain, cont home morphine PO ER 60mg q8H and IV morphine for breakthrough if neededHTN, cont home lisinospril, metoprolol XLHLD, cont home statinPulmonary FibrosisEhlers-Danlos syndromeSleep, cont trazodoneDVT proph:xarelto PAD dose alreadyDisposition:Chief Complaint: sent by HPI: Ms. Vee is a pleasant 68f, known to me from previous admission, PMH of severe PAD s/p axillary bifemoral bypass 05/2023 at this facility with Dr. Vaz, Eve with severe joint pain on extensive opiate contract, HTN, HLD, and Pulmonary Fibrosis diagnosis. She went to appointment today and was told to come to the ER 2/2 infected non-healing LLE ulcer. On arrival to ER she is going to be admitted for IV abx, imaging, culture, and ID physician evaluation.ROS: A 14 point ROS was performed and was negative except for as above in HPI.severe PAD s/p axillary bifemoral bypass 05/2023 at this facility with Eve Reyna with severe joint pain on extensive opiate contract, HTN, HLD, and Pulmonary Fibrosis Past Procedural HistoryNo qualifying data available.Family HistoryReviewed and non-contributorySocial HistoryTobaccoDetails: Use: Current every day smoker. Type: Cigarettes. Ready to change: No. Tobacco smoke exposure: None. Other Tobacco Frequency 10 cigarettes/day-Cony WHITEHEAD 07/16/23. Did the Patient Smoke Cigarettes Anytime During the Last 365 Days? Yes. Cessation Counseling Provided? Yes.Electronic Cigarette/VapingDetails: Electronic Cigarette Use: Never.Allergies: No Known AllergiesHome Medications:Please see admission medication reconciliation.Pertinent Labs:Pertinent Imaging:Physical ExamVitals Tmp(F) Pulse BP RR SpO2 TTL398/16 12:47 97.4 76 131/74 19 99 ---24 Hr Tmax: 97.4F (36.33c) at 08/15 12:47 Vital Signs are the last 5 in the past 48 hours.General: deconditionedHEENT: Moist mucus membranes, No goiter notedNeck: No mass or lymphadenopathyCardio: RRR, no murmurs, gallops, or rubsPulmonary: Clear breath sounds bilaterally, no increased work of breathing, no cracklesAbdominal: soft,, non-distendedExtremities: No cyanosis or edemaNeuro: grossly normalSkin: Nlarge ulcer with some drainage LLE, white fluid collectionCorrection all inflammatory markers are normal. Possible just worsening vascular ulcer. Will hold off on abx melodie.Bear Pérez MDElectronically Signed: 08/16/23 19:28 [facility]2024-05-18 16:00:00* Bear Pérez MD: PERFORMEvent Display: History and PhysicalAuthored Date: [id number]. Inflammatory markers all normal. Possibly just worsening vascular ulcer. WIll hold off on abx melodie and see what vascular / ID has to say.Bear Pérez MDElectronically Signed: 08/16/23 19:29 [facility]2024-02-25 12:59:43 TRAUMA SURGERY HISTORY AND PHYSICAL Date of Service: 05/27/2023 12:59 Chief Complaint: Ground Level Fall TRAUMA EVAL HPI/MECHANISM OF INJURY Date of Injury- 05/27/23 Time of Injury- 0200 Transport details: EMS Details: Yara Vee is a 68 year old female with a significant past medical history of ecent axillary to bifemoral bypass for bilateral critical limb ischemia on 05/23/23 at [facility] on xarelto (last dose 05/22/23) and aspirin (last dose yesterday), HTN, HLD, thomas danlos with severe joint pain arthritis on chronic narcotic, and pulmonary fibrosis presenting as a trauma activation for ground level fall that occurred around 0200 05/27/2023. Does not remember incident. Takes blood thinners. Denies any pain. States that she feels lightheaded. Pre-hospital interventions: None PRIMARY SURVEY Vitals: Vitals: 05/27/23 1111 05/27/23 1113 05/27/23 1114 05/27/23 1115 BP: (!) 86/61 Pulse: 104 Resp: 20 20 20 SpO2: 100% Weight: 54.4 kg (120 lb) Height: 1.651 m (5' 5") Airway: Patent Breathing: bilateral breath sounds present Circulation: Bilateral radial pulses present and Bilateral DP/PT pulses present though bilateral DP/PT pulses are markedly diminished. Capillary refill 2 seconds in all extremities. Disability: Glascow Coma Scale: Glascow Coma Scale Eye Openin Best Verbal Response: 5 Best Motor Response: 6 TOTAL: 15 Pupils: Equal/reactive and 3 mm Rectal exam: not performed. Exposure: see physical exam findings FAST Exam: was not performed Chest XR: not obtained Pelvic XR: not obtained ALLERGIES: No Known Allergies MEDICATIONS: Home Medications: (Not in a hospital admission) Hospital Medications: Current Facility-Administered Medications Medication Dose Route Frequency Last Rate Last Admin NaCl 0.9% (NS) bolus infusion 500 mL 500 mL IV Piggyback ONCE Current Outpatient Medications Medication Sig Dispense Refill lisinopril 10 mg tablet Take 1 tablet by mouth daily. 30 tablet 0 metoprolol succinate XL 100 mg 24 hr tablet Take 100 mg by mouth daily. pravastatin 40 mg tablet Take 40 mg by mouth at bedtime. tiZANidine (ZANAFLEX) 4 mg capsule Take 4 mg by mouth daily. MORPHINE SULFATE (MS CONTIN ORAL) Take 100 mg in am, 60 mg at noon, 60 mg in pm PAST SURGICAL HISTORY: No past surgical history on file. PAST MEDICAL HISTORY: Past Medical History: Diagnosis Date Anxiety Chronic hip pain left Thomas-Danlos syndrome HTN (hypertension) SOCIAL HISTORY: Social History Socioeconomic History Marital status: Tobacco Use Smoking status: Some Days Packs/day: .25 Types: Cigarettes Smokeless tobacco: Never Substance and Sexual Activity Alcohol use: Not Currently Social History Narrative Patient live home alone with service dog and crutches FAMILY HISTORY: Family History Problem Relation Age of Onset Other - see comments Mother Heart Brother REVIEW OF SYSTEMS 14-point Review of Systems conducted; positives are noted per HPI PHYSICAL EXAM HEAD SCALP Grossly normal, no wounds, no tenderness to palpation FOREHEAD Grossly normal, no wounds, no tenderness to palpation EYES Visual acuity grossly normal, extraocular movements intact, normal external eye, corneas clear, conjunctiva and sclera normal EARS Hearing grossly intact, no wounds, external ear normal NOSE Grossly normal, septum intact, no wounds, no bleeding, no discharge MIDFACE Grossly normal, stable and no tenderness to palpation MOUTH Lips grossly normal, mucous membranes moist, no wounds intraorally MANDIBLE Grossly normal, no wounds, no tenderness to palpation NECK ANTERIOR NECK Grossly normal, no wounds, no JVD, no tenderness to palpation, no subcutaneous emphysema TRACHEA Midline POSTERIOR NECK Grossly normal, no wounds, no tenderness to palpation, no subcutaneous emphysema CHEST ANTERIOR CHEST No wounds, no tenderness to palpation, no subcutaneous emphysema CHEST WALL MOVEMENT Normal; no paradoxical chest wall movement. Non-labored respirations. CHEST WALL STABILITY Stable with palpation AUSCULTATION Regular rate and rhythm, lung sounds as noted above ABDOMEN/PELVIS INSPECTION No wounds. Grossly normal external appearance. PALPATION Soft, non-tender, non-distended. No rebound tenderness or guarding. No peritoneal signs. PELVIS STABILITY Stable with compression. MUSCULOSKELETAL RIGHT UPPER EXTREMITY No gross deformity. No tenderness to palpation. Neurovascularly intact. No pain with range of motion. LEFT UPPER EXTREMITY No gross deformity. No tenderness to palpation. Neurovascularly intact. No pain with range of motion. RIGHT LOWER EXTREMITY No gross deformity. No tenderness to palpation. Neurovascularly intact. No pain with range of motion. LEFT LOWER EXTREMITY No gross deformity. No tenderness to palpation. Neurovascularly intact. No pain with range of motion. GENITALIA, PERINEUM, RECTUM GENITALIA Not examined. PERINEUM Not examined. RECTUM Not examined. BACK CERVICAL SPINE No tenderness to palpation. No wounds. THORACIC SPINE No tenderness to palpation. No wounds. LUMBAR SPINE No tenderness to palpation. No wounds. SACRUM No tenderness to palpation. No wounds. Neurologic Exam: Right Left Comment Upper Extremity Strength Exam 5/5 3/5 Lower Extremity Strength Exam 5/5 3/5 Sensation: intact to light touch throughout. LABORATORY RESULTS Chemistry CBC LFTs Coags, other 125 (L) 94 (L) 60 (H) 86 15.10 (H) 9.1 (L) 290 AST: 73 (H) ALT: 14 PT: 12.2 INR: 1.1 4.1 18 (L) 2.38 (H) 26.8 (L) AP: 90 T Juve: 0.7 PTT: 27 eGFR: 21.7 Ca: 7.8 (L) % Tarun: 83.9 Prot: 5.4 (L) Alb: 3.0 (L) Lact: 2.14 Procal: - Mg: - PO4: - ANC: 15.28 (H) pBNP: 3,030 (H) Trop I: 0.014 ABG NA (mmol/L) Date Value 08/10/2016 120 (L) K+ (mmol/L) Date Value 08/10/2016 2.4 (LL) AC CA IONZ (mg/dL) Date Value 08/10/2016 4.40 (L) RADIOLOGY RESULTS CT TRAUMA THORACIC SPINE WO CONTRAST Result Date: 05/27/2023 EXAM: CT TRAUMA THORACIC SPINE WO CONTRAST, CT TRAUMA LUMBAR SPINE WO CONTRAST HISTORY: 68 years-old Female; Polytrauma, critical, T/L spine injury suspected. COMPARISON: None TECHNIQUE: CT imaging of the thoracic, and lumbar spine was obtained without IV contrast. Coronal and sagittal reformats were constructed. FINDINGS: THORACIC SPINE: Mild S shaped curvature of the thoracolumbar spine. The vertebral bodies are in normal height and alignment. The intervertebral disc spaces are preserved. No acute fracture or dislocation is present. There are mild degenerative changes of thoracic spine. Paraspinal soft tissues are unremarkable. LUMBAR SPINE: The lumbar curvature is normal. The vertebral bodies are normal in height. Levoscoliosis. No facet fracture or subluxation is present. Moderate degenerative changes of the lumbar spine with severe loss of disc space at L4-L5 and L5-S1. The visualized sacrum and pelvic bones are unremarkable. Paraspinal soft tissues are unremarkable. Please refer to concurrently performed, separately dictated CTs of the chest, abdomen and pelvis for further details. No thoracic or lumbar fracture or subluxation. Preliminary Report Dictated by Resident: Tevin Swartz MD., have reviewed this study and agree with the above report. CT TRAUMA LUMBAR SPINE WO CONTRAST Result Date: 05/27/2023 EXAM: CT TRAUMA THORACIC SPINE WO CONTRAST, CT TRAUMA LUMBAR SPINE WO CONTRAST HISTORY: 68 years-old Female; Polytrauma, critical, T/L spine injury suspected. COMPARISON: None TECHNIQUE: CT imaging of the thoracic, and lumbar spine was obtained without IV contrast. Coronal and sagittal reformats were constructed. FINDINGS: THORACIC SPINE: Mild S shaped curvature of the thoracolumbar spine. The vertebral bodies are in normal height and alignment. The intervertebral disc spaces are preserved. No acute fracture or dislocation is present. There are mild degenerative changes of thoracic spine. Paraspinal soft tissues are unremarkable. LUMBAR SPINE: The lumbar curvature is normal. The vertebral bodies are normal in height. Levoscoliosis. No facet fracture or subluxation is present. Moderate degenerative changes of the lumbar spine with severe loss of disc space at L4-L5 and L5-S1. The visualized sacrum and pelvic bones are unremarkable. Paraspinal soft tissues are unremarkable. Please refer to concurrently performed, separately dictated CTs of the chest, abdomen and pelvis for further details. No thoracic or lumbar fracture or subluxation. Preliminary Report Dictated by Resident: Tevin Swartz MD., have reviewed this study and agree with the above report. CT MAXILLOFACIAL/MANDIBLE WO CONTRAST Result Date: 05/27/2023 EXAM: CT MAXILLOFACIAL/MANDIBLE WO CONTRAST HISTORY: 68 years-old Female; Provided indication: trauma .; Fall out of wheelchair. TECHNIQUE: Routine unenhanced CT of the maxilla and face was performed. Coronal and sagittal reformats were obtained. COMPARISON: CT head 05/27/2023 FINDINGS: The nasal bones, nasal septum, and frontal processes of the maxilla are intact. The orbits, globes, and other intraorbital structures are unremarkable. The maxilla, maxillary sinus lockwood, and pterygoid plates are intact. The zygomatic arches are intact. Degenerative changes of bilateral temporomandibular joints. The mandible otherwise appears unremarkable. Dental amalgam limits evaluation of the soft tissues. Scattered dental caries. The mastoid air cells are unremarkable. Some retention cysts are present in the paranasal sinuses; there otherwise unremarkable. No acute fractures of the face. Preliminary Report Dictated by Resident: Trista Joyce I, Tevin Alcocer MD., have reviewed this study and agree with the above report. CT THORAX WO CONTRAST Result Date: 05/27/2023 History: Chest and abdominal trauma injury. Exam: CT THORAX WO CONTRAST, CT ABDOMEN PELVIS WO CONTRAST Date: 05/27/2023 9:00 AM Ordering provider: TIM ADAIR Technique: Axial CT scanning of the chest, abdomen, and pelvis is performed without contrast. Radiation dose reduction performed using ALARA principles. Technical quality: Adequate Comparison: None available. Findings: Chest: There are mild tracheal secretions. Severe emphysema is noted. There are multiple clusters of nodules mostly in the left upper lobe with some of the largest seen anteriorly and medially measuring up to 1.0 cm. In the periphery of the apical and anterior left upper lobe, there is a thick-walled cavity abutting the peripheral pleura measuring 3.2 x 2.4 cm. There is no evidence of pleural effusion or pneumothorax. The heart size is normal. There is trace pericardial fluid, which may be physiologic. There are diffuse a small calcifications throughout bilateral breasts. Abdomen and pelvis: The liver, spleen, pancreas, gallbladder, and adrenal glands are unremarkable on this noncontrasted exam. The right kidney is atrophic with compensatory hypertrophy of the left kidney. No evidence of biliary ductal dilatation, renal stone, or hydronephrosis. The uterus is surgically absent. No definite acute findings involving the bowel although evaluation is limited without contrast. No evidence of bowel obstruction, fluid collection, or free air. Musculoskeletal: There is severe pectus excavatum. Multilevel spinal degenerative changes are noted. There is left hip arthroplasty hardware resulting in streak artifact limiting evaluation. There is a right axillary to bifemoral bypass graft with fluid and edema in the soft tissues. Correlate with history. Impression: No evidence of an acute traumatic injury in the chest, abdomen, and pelvis. Severe emphysema. Multiple clusters of nodules mostly in the left upper lobe with some of the largest seen anteriorly and medially measuring up to 1.0 cm. These are likely inflammatory/postinflammatory. 3.2 cm thick-walled cavity in the left upper lobe, which is likely to reflect infection/inflammation. Malignancy cannot be excluded and follow-up is recommended. RL: 781 HS: Y ABDOMEN PELVIS WO CONTRAST Result Date: 05/27/2023 History: Chest and abdominal trauma injury. Exam: CT THORAX WO CONTRAST, CT ABDOMEN PELVIS WO CONTRAST Date: 05/27/2023 9:00 AM Ordering provider: TIM ADAIR Technique: Axial CT scanning of the chest, abdomen, and pelvis is performed without contrast. Radiation dose reduction performed using ALARA principles. Technical quality: Adequate Comparison: None available. Findings: Chest: There are mild tracheal secretions. Severe emphysema is noted. There are multiple clusters of nodules mostly in the left upper lobe with some of the largest seen anteriorly and medially measuring up to 1.0 cm. In the periphery of the apical and anterior left upper lobe, there is a thick-walled cavity abutting the peripheral pleura measuring 3.2 x 2.4 cm. There is no evidence of pleural effusion or pneumothorax. The heart size is normal. There is trace pericardial fluid, which may be physiologic. There are diffuse a small calcifications throughout bilateral breasts. Abdomen and pelvis: The liver, spleen, pancreas, gallbladder, and adrenal glands are unremarkable on this noncontrasted exam. The right kidney is atrophic with compensatory hypertrophy of the left kidney. No evidence of biliary ductal dilatation, renal stone, or hydronephrosis. The uterus is surgically absent. No definite acute findings involving the bowel although evaluation is limited without contrast. No evidence of bowel obstruction, fluid collection, or free air. Musculoskeletal: There is severe pectus excavatum. Multilevel spinal degenerative changes are noted. There is left hip arthroplasty hardware resulting in streak artifact limiting evaluation. There is a right axillary to bifemoral bypass graft with fluid and edema in the soft tissues. Correlate with history. Impression: No evidence of an acute traumatic injury in the chest, abdomen, and pelvis. Severe emphysema. Multiple clusters of nodules mostly in the left upper lobe with some of the largest seen anteriorly and medially measuring up to 1.0 cm. These are likely inflammatory/postinflammatory. 3.2 cm thick-walled cavity in the left upper lobe, which is likely to reflect infection/inflammation. Malignancy cannot be excluded and follow-up is recommended. RL: 781 HS: Y HEAD WO CONTRAST Result Date: 05/27/2023 EXAM: CT HEAD WO CONTRAST, CT CERVICAL SPINE WO CONTRAST HISTORY: 68 years-old Female; Provided indication: Head trauma, moderate-severe. History obtained from [facility]: "Fall." TECHNIQUE: Axial CT of the head and cervical spine was performed. Coronal and sagittal reformatted images were generated. COMPARISON: 12/25/2018. FINDINGS: HEAD: The ventricles and cerebral sulci are normal in caliber and configuration. No midline shift or pathological extra-axial fluid collection is present. The basal cisterns are unremarkable. There is a shallow acute subdural hematoma along the right parietotemporal cerebral convexity measuring approximately 4 mm in maximum thickness. There is mild associated regional mass effect. No midline shift. No parenchymal attenuation abnormality is seen. The felipe-white matter differentiation is preserved. The mastoid air cells and paranasal air sinuses are clear. Left parietal scalp laceration and hematoma. The calvarium and central skull base are unremarkable. CERVICAL SPINE: There is reversal of cervical lordosis. Grade 1 anterolisthesis of C2 over C3, C3 over C4 and C4 over C5, unchanged. The vertebral bodies are normal in height. No acute fracture or subluxation identified. The atlantoaxial and craniocervical junctions are aligned. Moderate multilevel to the changes in the form of disc space narrowing, endplate sclerosis, osteophyte formation, facet and uncovertebral arthrosis, most pronounced at C5-C6 and C6-C7. The prevertebral soft tissues are unremarkable. Incidental note of hypodense right thyroid lobe nodule measuring approximately 1.4 cm. Partially visualized cavitary lesion within the left upper lung. Shallow acute right cerebral convexity subdural hematoma. No midline shift. No acute cervical spine fracture. Partially visualized cavitary lesion within the left upper lung. Dedicated CT of the chest is recommended for further evaluation on nonemergent basis. Critical findings of acute subdural hematoma were discussed with Dr. Tim Adair at 8:35 AM on 05/27/[address] CERVICAL SPINE WO CONTRAST Result Date: 05/27/2023 EXAM: CT HEAD WO CONTRAST, CT CERVICAL SPINE WO CONTRAST HISTORY: 68 years-old Female; Provided indication: Head trauma, moderate-severe. History obtained from [facility]: "Fall." TECHNIQUE: Axial CT of the head and cervical spine was performed. Coronal and sagittal reformatted images were generated. COMPARISON: 12/25/2018. FINDINGS: HEAD: The ventricles and cerebral sulci are normal in caliber and configuration. No midline shift or pathological extra-axial fluid collection is present. The basal cisterns are unremarkable. There is a shallow acute subdural hematoma along the right parietotemporal cerebral convexity measuring approximately 4 mm in maximum thickness. There is mild associated regional mass effect. No midline shift. No parenchymal attenuation abnormality is seen. The felipe-white matter differentiation is preserved. The mastoid air cells and paranasal air sinuses are clear. Left parietal scalp laceration and hematoma. The calvarium and central skull base are unremarkable. CERVICAL SPINE: There is reversal of cervical lordosis. Grade 1 anterolisthesis of C2 over C3, C3 over C4 and C4 over C5, unchanged. The vertebral bodies are normal in height. No acute fracture or subluxation identified. The atlantoaxial and craniocervical junctions are aligned. Moderate multilevel to the changes in the form of disc space narrowing, endplate sclerosis, osteophyte formation, facet and uncovertebral arthrosis, most pronounced at C5-C6 and C6-C7. The prevertebral soft tissues are unremarkable. Incidental note of hypodense right thyroid lobe nodule measuring approximately 1.4 cm. Partially visualized cavitary lesion within the left upper lung. Shallow acute right cerebral convexity subdural hematoma. No midline shift. No acute cervical spine fracture. Partially visualized cavitary lesion within the left upper lung. Dedicated CT of the chest is recommended for further evaluation on nonemergent basis. Critical findings of acute subdural hematoma were discussed with Dr. Tim Adair at 8:35 AM on 05/27/2023 via the telephone. 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 Severe emphysema. - Multiple clusters of nodules mostly in the left upper lobe with some of the largest seen anteriorly and medially measuring up to 1.0 cm. These are likely inflammatory/postinflammatory. - 3.2 cm thick-walled cavity in the left upper lobe, which is likely to reflect infection/inflammation. Malignancy cannot be excluded and follow-up is recommended. Tian Garcia MD 05/27/2023 12:59 Department of Trauma/Acute Care Surgery F OPERATING ENGINEER Associated attestation - James Gross MD - 05/27/2023 3:51 PM CHIEF OPERATING ENGINEER I have examined Ms Vee and agree with the note by Dr Garcia - subdural hemorrhage - on anticoagulation. Will admit for obs. (Note recent axillo bifem).. JPW MARJAN-PLASTIC AND RECONSTRUCTIVE SURGERYCleveland Clinic Children's Hospital for [id number] 20:00:00* Harpreet Lion MD: PERFORMEvent Display: History and PhysicalAuthored Date: [id number] and Physical Primary Team Name:Team Contact Info:PCP Contact info:Family contact info: Code Status: Full Resuscitation Chief Complaint: Peripheral vascular disease History of Present Illness: 68-year-old lady, history of peripheral vascular disease, hypertension, hyperlipidemia, admitted from the ICU status post right axillo- bifemoral artery bypass as well as right femoral endarterectomy.Patient hemodynamically stable, denies any new complaints at this time.She had angiogram due to claudication, found to have occluded L SFA as well as for any artery disease.Procedure was essentially unremarkable, patient hemodynamically stable at this time Review of Systems: 12 point review of system was negative except as in HPI Problem List/Past Medical History: Ongoing No qualifying data Social History: Electronic Cigarette/Vaping Electronic Cigarette Use: Never. Tobacco Use: Current every day smoker. Type: Cigarettes. Ready to change: No. Tobacco smoke exposure: None. Did the Patient Smoke Cigarettes Anytime During the Last 365 Days? Yes. Cessation Counseling Provided? Yes. Allergies: No Known Allergies Home Medications: DULoxetine 20 mg oral delayed release capsule, 20 mg= 1 cap, PO, Daily furosemide 40 mg oral tablet, 40 mg= 1 tab, PO, Daily lisinopril 10 mg oral tablet, 10 mg= 1 tab, PO, Daily metFORMIN, 500 mg, PO, Daily metoprolol succinate 100 mg oral capsule, extended release, 100 mg= 1 cap, PO, Daily morphine 60 mg/12 to 24 hr oral capsule, extended release, 60 mg= 1 cap, PO, Q12H pravastatin 40 mg oral tablet, 40 mg= 1 tab, PO, Bedtime Santyl 250 units/g topical ointment, 1 appl, TOP, Daily trazodone 50 mg oral tablet, 50 mg= 1 tab, PO, Bedtime Xarelto 2.5 mg oral tablet, 2.5 mg, PO, Q12H Physical Exam: Vitals and Measurements T: 97.6 F (Oral) TMIN: 97.4 F (Temporal Artery) TMAX: 97.8 F (Oral) HR: 81 (Apical) RR: 15 BP: 133/65 SpO2: 97% WT: 54.9 kg GENERAL : awake, alert, calmHEENT: dry MM, no JVDCVS: S1S2,RRR, no rubs, no gallops, no murmurCHEST: Good air entry juve, reduced at the basesABDOMEN: Positive bowel sounds. Soft, nondistended, nontender. No guarding or rebound, no organomegaly appreciatedCNS: Non focal neuro examEXTREMITIES: No edema, no cyanosis, dressing over the axillary area as well as both groinsSKIN: normal color and texture Pertinent Labs: A.m. labs reviewed Pertinent Imaging: All imaging reviewed Assessment/Plan: 1. S/P femoral-femoral bypass surgery (Z95.828) 2. Peripheral artery disease (I73.9) 3. Hypertension (I10) 4. Hyperlipidemia (E78.5) Plan - Continue care per postop protocolContinue vascular checks per protocolContinue anticoagulationBlood pressure acceptableAdvance diet as toleratedContinue the current therapiesDVT and GI prophylaxisFull code Harpreet Lion MDElectronically Signed: 05/23/23 21:58 [facility]2024-02-23 20:00:00* Bear Pérez MD: PERFORMEvent Display: History and PhysicalAuthored Date: [id number]-ShvxpntThe [facility]\\Assessment and PlanAcute Medical Problems:Severe, PAD,- angiogram with L SFA occlusion, severe infra-renal aortic disease. Dr. Vaz to be consulted- cont aspirin, hold PAD dose xarelto for nowChronic Medical Problems that contribute to medical complexity:HTN, cont home lisinopril and metoprolol XOLHLD, cont home pravastatinPeripheral edema, cont home lasixEhlers Danlos, severe arthritis with chronic pain and pain contract, confirmed home dose morphine sulfate ER 60mg q8H. Cont that dose with breakthrough as neededDVT proph: heparin subQDisposition: pending vascular surgery evaluationChief Complaint: claudicationHPI: Ms. 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 She presented today for elective LE angiogram for claudication with Dr. Vaz. She was found to have occluded L SFA and severe infrarenal aortic disease. She is being admitted for vascular surgery evaluation. 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 Type: Cigarettes. Tobacco smoke exposure: None. Did the Patient Smoke Cigarettes Anytime During the Last 365 Days? Yes. Cessation Counseling Provided? Yes.Electronic Cigarette/VapingDetails: Electronic Cigarette Use: Never.Allergies: No Known AllergiesHome Medications:Please see admission medication reconciliation.Pertinent Labs: reviewed / naPertinent Imaging:Physical ExamVitals Tmp(F) Pulse BP RR SpO2 YWK832/20 10:45 ---- 90 91/57 16 93 ---05/22 10:30 ---- 88 84/56 16 93 ---05/22 10:15 ---- 90 103/55 15 91 ---05/22 10:00 ---- 86 127/61 14 96 ---05/22 09:45 ---- 88 138/68 21 93 ---24 Hr Tmax: 97.8F (36.56c) at 05/22 07:11 Vital Signs are the last 5 in the past 48 hours.General: deconditionedHEENT: Moist mucus membranes, No goiter notedNeck: No mass or lymphadenopathyCardio: RRR, no murmurs, gallops, or rubsPulmonary: Clear breath sounds bilaterally, no increased work of breathing, no cracklesAbdominal: soft,, non-distendedExtremities: No cyanosis or edemaNeuro: grossly normalSkin: Normal color and turgorKobrin, Bear Hernandez MDElectronically Signed: 05/22/23 11:15 [facility] Procedure Notes Date/Time Note Provider Source 2024-02-26 08:55:44 Images from the original note were not included. - Vascular Procedure Note - Procedures Performed: 1. Moderate sedation for 15 minutes, 40130 2. Ultrasound guided access of the right radial, 27835 3. Abdominal angiogram, 86737 4. Selective left ext iliac bypass limb angiogram (3rd order) from right radial OUTCOMES MANAGER, 18394 Pre-Procedure Diagnosis: Claudication / abnormal SHEREEN Post-Procedure Diagnosis: Same Consumer Safety Inspector: Bear Ferguson MD Procedure: Consent and Prep: After appropriate consent was obtained, the patient was brought to the cardiac catheterization laboratory where they were prepped and draped with standard sterile technique. Moderate Sedation: I attest that moderate sedation conscious sedation was provided under my direct supervision with the sedation trained nursing staff, using IV Versed and Fentanyl to sedate the patient. The total time of sedation was 15 minutes. There was continuous monitoring of O2 saturations and blood pressure. See the nurses sedation sheet for further details. Vascular Access: Ultrasound was used to visualize potential access sites in the right radial artery. The vessel was patent and compressible by ultrasound. Once the access area was identified, the area was anesthetized with 2% lidocaine under direct ultrasound visualization. Real-time visualization of micropuncture needle entry was performed and a 4/5F sheath was placed using modified Seldinger technique. Angiography was performed to confirm luminal placement of the sheath, with images sent to [facility]. Abdominal Angiogram with Bilateral Iliac Angiography: A 0.035 guidewire advantage was advanced into the thoracic aorta using fluoroscopic guidance. Next a 5F Omniflush catheter was advanced to the abdominal aorta and positioned under the renal arteries. Abdominal angiography was performed. Aorta: heavy calcium, small calibre, aortobifem trunk present Left common iliac: occluded Right common iliac: occluded Peripheral Angiograms: Next the omni-flush catheter was used to access the left ext iliac arm of the aortobifem using a 0.035" GlideWire Advantage I placed a 4F [place] catheter in the limb and selective angiogram was performed. - Left leg: femoral - appears occluded SFA - prox apppears occluded perhaps fed by profunda (egegik collaterals) POP - patent NOEMI - patent PER - patent CHILD PSYCHOLOGY TEACHER - patent The patient tolerated the procedure well and was transferred to the holding area in good condition. TR band protocol Estimated Blood Loss: <50 cc Complications: none Specimens: none [facility] 2024-02-26 08:52:35 Airway Assessment: Mallampati class - II. ASA 3 [facility] 2024-02-25 08:25:00 Phone PAT done with Pt. Time of arrival 6am, place to be and procedure to be done. Verified allergies, current meds and pharmacy. NPO after midnight, take AM meds with a small sip of water except DM meds, xarelto, lasix. shower AM no perfume or lotion. Safe ride home. Patient states she has not been taking her metformin and xeralto for two days. Nurse advised to continue to hold as instructed. [facility] Notes Date/Time Note Provider Source 2024-07-29 10:57:48 Chief Complaint Patient presents with Follow-up Left lower leg Chante Mckeon MA [facility] 2024-07-01 09:59:31 Chief Complaint Patient presents with Follow-up Left lower leg Chante Mckeon MA [facility] 2024-06-06 10:56:03 Chief Complaint Patient presents with Follow-up 3 MONTH dm [facility] 2024-05-22 15:14:02 Chief Complaint Patient presents with Consultation For abnormal Chest CT, pulmonary fibrosis. Estefania Ruby LVN [facility] 2024-05-19 13:56:32 Chief Complaint Patient presents with Follow-up LLE Kelley LVN [facility] 2024-04-21 13:49:44 Chief Complaint Patient presents with Follow-up LLE Chante Mckeon MA [facility] 2024-03-31 10:24:19 Chief Complaint Patient presents with Follow-up 3 week follow up ulcer on left leg [facility] * Intimate Partner Violence Question Answer Date of Assessment Author Within the last year, have you been humiliated or emotionally abused in other ways by your partner or ex-partner? Patient declined 02/27/2024 4:22 AM Edelmira Benton RN Within the last year, have you been afraid of your partner or ex-partner? Patient declined 02/27/2024 4:22 AM Edelmira Benton RN Within the last year, have you been raped or forced to have any kind of sexual activity by your partner or ex-partner? Patient declined 02/27/2024 4:22 AM Edelmira Benton RN Within the last year, have you been kicked, hit, slapped, or otherwise physically hurt by your partner or ex-partner? Patient declined 02/27/2024 4:22 AM Manas Benton RN * * Calculated C-SSRS Risk Score (Lifetime/Recent) Answer Date of Assessment Author No Risk Indicated 02/26/2024 7:35 PM Olivier Dyer RN * Howard Suicide Severity Rating Scale (Screener/Recent Self-Report) Question Answer Date of Assessment Author 1. Wish to be (Past 1 Month) No 024 7:35 PM Olivier Dyer, VENTURA 2. Non-Specific Active Suici robles Thoughts (Past 1 Month) No 02/26/2024 7:35 PM Josephine Dyer RN 6. Suicidal Behavior (Lifetime) No 7:35 PM Olivier Dyer, VENTURA [facility] [id number] 23:53:05 [facility] [id number] 23:53:05 [facility] [id number] 00:02:20* Audit-C Score Answer Date of Assessment Author 2 02/27/2024 4:22 AM Edelmira Benton RN * Intimate Partner Violence Question Answer Date of Assessment Author Within the last year, have you been humiliated or emotionally abused in other ways by your partner or ex-partner? Patient declined 02/27/2024 4:22 AM Edelmira Benton RN Within the last year, have you been afraid of your partner or ex-partner? Patient declined 02/27/2024 4:22 AM Edelmira Benton RN Within the last year, have you been raped or forced to have any kind of sexual activity by your partner or ex-partner? Patient declined 02/27/2024 4:22 AM Edelmira Benton RN Within the last year, have you been kicked, hit, slapped, or otherwise physically hurt by your partner or ex-partner? Patient declined 02/27/2024 4:22 AM Manas Betnon RN * * Calculated C-SSRS Risk Score (Lifetime/Recent) Answer Date of Assessment Author No Risk Indicated 02/26/2024 7:35 PM Olivier Dyer RN * Howard Suicide Severity Rating Scale (Screener/Recent Self-Report) Question Answer Date of Assessment Author 1. Wish to be (Past 1 Month) No 024 7:35 PM Olivier Dyer RN 2. Non-Specific Active Suici robles Thoughts (Past 1 Month) No 02/26/2024 7:35 PM Josephine Dyer RN 6. Suicidal Behavior (Lifetime) No 7:35 PM Olivier Dyer RN [facility] [id number] 00:02:20 [facility] [id number] 00:02:20 [facility] [id number] 14:11:17 Chief Complaint Patient presents with Follow-up Left leg wound PRUDENCE Britt II [facility]lewA[facility] HospitalPhlxnm8724-93-17 07:28:40 Chief Complaint Patient presents with Skin Lesion Ulcer on left leg Flo De Santiago [facility]2024-11-27 13:38:00* Consultation (Routine) - Pending Review Specialty Diagnoses / Procedures Referred By Contac t Referred To Contact Cardiac Rehabilitation Diagnoses PAD (peripheral artery disease) (HCC) Procedures [place] OFFICE/OUTPATIENT [facility] 60-74 MINUTES Bear Ferguson MD [address] [place] [address] [place] [address] Phone: tel: fax: Referral ID Status Reason Start Date Expiration Date Visits Requested Visits Authorized [id number] Pending Review Specialty Services Required 08/24/2024 36 36 [facility]2024-11-27 13:38:00* Auth/Cert (Routine) Specialty Diagnoses / Procedures Referred By Contac t Referred To Contact Diagnoses PAD (peripheral artery disease) (HCC) pad Procedures [place] INTRO OF NEEDLE OR INTRACATHETER UPR/LXTR ARTERY WV SLCTV CATHJ EA 1ST ORD ABDL PEL/LXTR ART BRNCH WV SLCTV CATHJ 2ND ORDER ABDL PEL/LXTR ART BRNCH WV SLCTV CATHJ 3RD+ ORD SLCTV ABDL PEL/LXTR BRNCH CHG ANGIOGRAPHY EXTREMITY UNILATERAL RS&I CHG ANGIOGRAPHY EXTREMITY BILATERAL RS&I CHG AORTOGRAPHY ABDOMINAL SERIALOGRAPHY RS&I WV REVASCULARIZATION ILIAC ARTERY ANGIOP 1ST VSL WV REVSC OPN/PRQ ILIAC ART W/STNT PLMT & ANGIOPLSTY WV REVASCULARIZATION ILIAC ART ANGIOP EA IPSI VSL CHG AORTOGRAPHY ABDL BI ILIOFEM LOW EXTREM CATH RS&I WV REVSC OPN/PRG FEM/POP W/ANGIOPLASTY UNI WV MOD SED SAME PHYS/QHP INITIAL 15 MINS 5/> YRS WV REVSC OPN/PRQ TIB/PARVEZ W/STNT/ANGIOP SM VSL WV REVSC OPN/PRQ TIB/PARVEZ W/ATHRC/ANGIOP SM VSL WV REVSC OPN/PRQ FEM/POP W/ATHRC/ANGIOP SM VSL WV REVSC OPN/PRQ FEM/POP W/STNT/ANGIOP SM VSL CHG US VASC ACCESS SITS VSL PATENCY NDL ENTRY WV INTRO OF NEEDLE OR INTRACATHETER UPR/LXTR ARTERY WV SLCTV CATHJ EA 1ST ORD ABDL PEL/LXTR ART BRNCH WV SLCTV CATHJ 2ND ORDER ABDL PEL/LXTR ART BRNCH WV SLCTV CATHJ 3RD+ ORD SLCTV ABDL PEL/LXTR BRNCH CHG ANGIOGRAPHY EXTREMITY UNILATERAL RS&I CHG ANGIOGRAPHY EXTREMITY BILATERAL RS&I CHG AORTOGRAPHY ABDOMINAL SERIALOGRAPHY RS&I WV REVASCULARIZATION ILIAC ARTERY ANGIOP 1ST VSL WV REVSC OPN/PRQ ILIAC ART W/STNT PLMT & ANGIOPLSTY WV REVASCULARIZATION ILIAC ART ANGIOP EA IPSI VSL CHG AORTOGRAPHY ABDL BI ILIOFEM LOW EXTREM CATH RS&I WV REVSC OPN/PRG FEM/POP W/ANGIOPLASTY UNI WV MOD SED SAME PHYS/QHP INITIAL 15 MINS 5/> YRS WV REVSC OPN/PRQ TIB/PARVEZ W/ATHRC/ANGIOP SM VSL WV REVSC OPN/PRQ TIB/PARVEZ W/STNT/ANGIOP SM VSL WV REVSC OPN/PRQ FEM/POP W/ATHRC/ANGIOP SM VSL WV REVSC OPN/PRQ FEM/POP W/STNT/ANGIOP SM VSL CHG US VASC ACCESS SITS VSL PATENCY NDL ENTRY Lower extremity angiogram Bear Ferguson MD [address] [place] [address] Phone: tel: fax: [facility] (Transfer And Pumphouse Operator) [address] [place] [id number] Phone: tel: fax: Referral ID Status Reason Start Date Expiration Date Visits Re quested Visits Authorized [id number] 1 1 [facility] [id number] 13:38:00* Audit-C Score Answer Date of Assessment Author 2 02/27/2024 4:22 AM Edelmira Benton, VENTURA * Intimate Partner Violence Question Answer Date of Assessment Author Within the last year, have you been humiliated or emotionally abused in other ways by your partner or ex-partner? Patient declined 02/27/2024 4:22 AM Edelmira Benton, VENTURA Within the last year, have you been afraid of your partner or ex-partner? Patient declined 02/27/2024 4:22 AM Edelmira Benton RN Within the last year, have you been raped or forced to have any kind of sexual activity by your partner or ex-partner? Patient declined 02/27/2024 4:22 AM Edelmira Benton RN Within the last year, have you been kicked, hit, slapped, or otherwise physically hurt by your partner or ex-partner? Patient declined 02/27/2024 4:22 AM Manas Benton RN * * Calculated C-SSRS Risk Score (Lifetime/Recent) Answer Date of Assessment Author No Risk Indicated 02/26/2024 7:35 PM CHIEF OPERATING ENGINEER Olivier Luna RN * Howard Suicide Severity Rating Scale (Screener/Recent Self-Report) Question Answer Date of Assessment Author 1. Wish to be (Past 1 Month) No 7:35 PM Olivier Dyer RN 2. Non-Specific Active Suici robles Thoughts (Past 1 Month) No 02/26/2024 7:35 PM CHIEF OPERATING ENGINEER Josephine Luna RN 6. Suicidal Behavior (Lifetime) No 7:35 PM Olivier Dyer, VENTURA [facility] [id number] 13:38:00* Jerome Berrios, PT - 02/27/2024 12:30 PM CHIEF OPERATING ENGINEER Encounter Note Patient Name: Yara Vee Today's Date: 02/27/2024 Missed Treatment Time and Reason Pt preparing for discharge. Jerome Berrios, PT [facility] [id number] 13:38:00Pending Results Scheduled Orders Name Type Priority Associated Diagnoses Order Schedule Monitor access site and extremity distal to puncture wound Wound Ostomy Routine Until discontinu ed until discontinued starting 02/26/2024 Site Care Wound Ostomy Routine Until discon tinued until discontinued starting 02/26/2024 POCT Glucose Point of Care Testing - Docked Device Routine Every 15 minutes as needed until discontinued starting 02/26/2024 Wound Culture w/Gram Stain, Non-Surgical Microbiology STAT STAT (Lab) for 1 Occurrences starting 02/26/2024 until 02/26/2024 POCT Glucose Point of Care Testing - Docked Device Routine 3 times daily before meals (Lab) for 30 Days starting 02/26/2024 until 03/27/2024, 4 completed POCT Glucose Point of Care Testing - Docked Device Routine Every 15 minutes as needed until discontinued starting 02/26/2024 PTT Lab Routine Once (Lab) for 1 Occurrences starting 02/27/2024 until 02/27/2024 Incentive spirometry Respiratory Care Routine As needed until discontinued starting 02/27/2024 Scheduled Referrals Name Type Priority Associated Diagnoses Order Schedule Cardiac Rehabilitation Phase II Referral Outpatient Referral Routine PAD (peripheral artery disease) (HCC) Expected: 02/26/2024 (Approximate), Expires: 08/25/2024 Health Maintenance Due Date Last Done Comments Bone Density Scan 1955 CT Colonography 1955 Colonoscopy 1955 FIT 1955 FOBT 1955 Sigmoidoscopy 1955 Diabetes: Foot Exam 1965 Diabetes: Retinopathy Screening 1965 Hepatitis A Vaccines (1 of 2 - Risk 2-dose series) 1974 Zoster Vaccines (1 of 2) 1974 Mammogram 1995 Respiratory Syncytial Virus (RSV) or >=60 (1 - Risk 60-74 years 1-dose series) 2015 Diabetes: Hemoglobin A1C 06/05/2024 12/07/2023 Annual Physical 12/06/2024 12/07/2023, 04/10/2022 Lipid Panel 12/06/2024 12/07/2023 Pneumococcal Vaccine: 65+ Years (3 of 3 - PCV) 12/06/2024 12/07/2023, 04/10/2022 Diabetes: Urine Protein Screening 12/26/2024 12/27/2023 Colorectal Cancer Screening 04/15/2025 FIT-DNA 04/15/2025 04/15/2022, 04/15/2022 DTaP/Tdap/Td Vaccines (3 - Td or Tdap) 05/27/2033 05/27/2023, 11/18/2015 Influenza Vaccine Completed 12/07/2023, , 01/15/2023, Additional history exists HIB Vaccines Aged Out No longer eligi ble based on patient's age to complete this topic HPV Vaccines Aged Out No longer eligi ble based on patient's age to complete this topic Hepatitis B Vaccines Aged Out No long er eligible based on patient's age to complete this topic IPV Vaccines Aged Out No longer eligi ble based on patient's age to complete this topic Meningococcal Vaccine Aged Out No jony edward eligible based on patient's age to complete this topic Rotavirus Vaccines Aged Out No longer eligible based on patient's age to complete this topic [id number]38[facility]00 Diagnosis PAD (peripheral artery disease) (HCC) - Primary Unspecified peripheral vascular disease PAD (peripheral artery disease) (HCC) Unspecified peripheral vascular disease [id number] 13:38:00 [id number] 12:53:54 Discharge instruction given to the patient. After Visit Summary was discussed and given to the patient. Patient verbalizes understanding. Patient reported no pain at the time of discharge.Patient went home with family in their private vehicle. [facility] [id number] 12:45:39 Images from the original note were not included. [id number] Co-trimoxazole Brand Name(s): Bactrim? (as a combination product containing Sulfamethoxazole, Trimethoprim), Bactrim? DS (as a combination product containing Sulfamethoxazole, Trimethoprim), Septra? (as a combination product containing Sulfamethoxazole, Trimethoprim), Septra? DS (as a combination product containing Sulfamethoxazole, Trimethoprim), Septra? Suspension (as a combination product containing Sulfamethoxazole, Trimethoprim), Sulfatrim? Suspension (as a combination product containing Sulfamethoxazole, Trimethoprim); also available generically WHY is this medicine prescribed? Co-trimoxazole is used to treat certain bacterial infections, such as pneumonia (a lung infection), bronchitis (infection of the tubes leading to the lungs), and infections of the urinary tract, ears, and intestines. It also is used to treat 'travelers' diarrhea. Co-trimoxazole is a combination of trimethoprim and sulfamethoxazole and is in a class of medications called sulfonamides. It works by stopping the growth of bacteria. Antibiotics will not kill viruses that can cause colds, flu, or other viral infections. HOW should this medicine be used? Co-trimoxazole comes as a tablet and a suspension (liquid) to take by mouth. It usually is taken two times a day but may be taken up to four times a day when used to treat certain severe lung infections. Follow the directions on your prescription label carefully, and ask your doctor or pharmacist to explain any part you do not understand. Take co-trimoxazole exactly as directed. Do not take more or less of it or take it more often than prescribed by your doctor. You should begin to feel better during the first few days of treatment with co-trimoxazole. If your symptoms do not improve or if they get worse, call your doctor. Shake the liquid well before each use to mix the medication evenly. Take co-trimoxazole until you finish the prescription, even if you feel better. Do not stop taking co-trimoxazole without talking to your doctor. If you stop taking co-trimoxazole too soon or skip doses, your infection may not be completely treated and the bacteria may become resistant to antibiotics. Are there OTHER USES for this medicine? This medication is sometimes prescribed for other uses; ask your doctor or pharmacist for more information. What SPECIAL PRECAUTIONS should I follow? Before taking co-trimoxazole, ? tell your doctor and pharmacist if you are allergic to co-trimoxazole, any other medications, or any ingredients in co-trimoxazole tablets and suspension. Ask your pharmacist for a list of ingredients. ? tell your doctor and pharmacist what other prescription and nonprescription medications, vitamins, nutritional supplements, and herbal products you are taking or plan to take while taking co-trimoxazoleYour doctor may need to change the doses of your medications or monitor you carefully for side effects. ? tell your doctor if you have or have ever had thrombocytopenia (less than normal number of platelets) caused by taking sulfonamides or trimethoprim; megaloblastic anemia (abnormal red blood cells) caused by folate deficiency (low blood levels of folic acid), phenylketonuria (PKU, an inherited condition in which a special diet must be followed to prevent damage to your brain that can cause severe intellectual disability), or liver or kidney disease. Your doctor may tell you not to take co-trimoxazole. Co-trimoxazole should not be used in children less than 2 months of age. ? tell your doctor if you have or have ever had severe allergies; asthma; low levels of folic acid in the body which may be caused by malnutrition (you do not eat or cannot digest the nutrients needed for good health); human immunodeficiency virus (HIV) infection; porphyria (an inherited blood disease that may cause skin or nervous system problems); thyroid disease; or elvxumj-0-zpjecfyci dehydrogenase (G-6-PD) deficiency (an inherited blood disease). ? tell your doctor if you are , plan to become , or are breast-feeding. If you become while taking co-trimoxazole, call your doctor immediately. Co-trimoxazole can harm the fetus. ? plan to avoid unnecessary or prolonged exposure to sunlight and to wear protective clothing, sunglasses, and sunscreen. Co-trimoxazole may make your skin sensitive to sunlight. What SPECIAL DIETARY instructions should I follow? Unless your doctor tells you otherwise, continue your normal diet. Drink plenty of fluids during your treatment with co-trimoxazole. What should I do IF I FORGET to take a dose? Take the missed dose as soon as you remember it. However, if it is almost time for the next dose, skip the missed dose and continue your regular dosing schedule. Do not take a double dose to make up for a missed one. What SIDE EFFECTS can this medicine cause? Co-trimoxazole may cause side effects. Tell your doctor if any of these symptoms are severe or do not go away: ? nausea ? vomiting ? loss of appetite If you experience any of the following symptoms, call your doctor immediately: ? rash ? itching ? sore throat ? fever or chills ? severe diarrhea (watery or bloody stools) that may occur with or without fever and stomach cramps (may occur up to 2 months or more after your treatment) ? shortness of breath ? cough ? unusual bruising or bleeding ? yellowing of the skin or eyes ? paleness ? red or purple skin discolorations ? joint or muscle pain If you experience a serious side effect, you or your doctor may send a report to the Food and Drug Administration's (FDA) [employer] Adverse Event Reporting program online (https://www.fda.gov/Safety/MedWatch) or by phone ( ). What should I know about STORAGE and DISPOSAL of this medication? Keep this medication in the container it came in, tightly closed, and out of reach of children. Store it at room temperature and away from excess heat and moisture (not in the bathroom). It is important to keep all medication out of sight and reach of children as many containers (such as weekly pill minders and those for eye drops, creams, patches, and inhalers) are not child-resistant and young children can open them easily. To protect young children from poisoning, always lock safety caps and immediately place the medication in a safe location - one that is up and away and out of their sight and reach. https://www.upandaway.org Unneeded medications should be disposed of in special ways to ensure that pets, children, and other people cannot consume them. However, you should not flush this medication down the toilet. Instead, the best way to dispose of your medication is through a medicine take-back program. Talk to your pharmacist or contact your local garbage/recycling department to learn about take-back programs in your community. See the FDA's Safe Disposal of Medicines website (https://goo.gl/c4Rm4p) for more information if you do not have access to a take-back program. What should I do in case of OVERDOSE? In case of overdose, call the poison control helpline at . Information is also available online at https://www.poisonhelp.org/help. If the victim has collapsed, had a seizure, has trouble breathing, or can't be awakened, immediately call emergency services at 911. What OTHER INFORMATION should I know? Keep all appointments with your doctor and the laboratory. Your doctor will order certain lab tests to check your response to co-trimoxazole. Before having any laboratory test, tell your doctor and the laboratory personnel that you are taking co-trimoxazole. Do not let anyone else take your medication. Your prescription is probably not refillable. If you still have symptoms of infection after you finish the co-trimoxazole, call your doctor. It is important for you to keep a written list of all of the prescription and nonprescription (flmq-gkx-fjjkuad) medicines you are taking, as well as any products such as vitamins, minerals, or other dietary supplements. You should bring this list with you each time you visit a doctor or if you are admitted to a hospital. It is also important information to carry with you in case of emergencies. This report on medications is for your information only, and is not considered individual patient advice. Because of the changing nature of drug information, please consult your physician or pharmacist about specific clinical use. The [employer] represents that the information provided hereunder was formulated with a reasonable standard of care, and in conformity with professional standards in the field. The [employer] makes no representations or warranties, express or implied, including, but not limited to, any implied warranty of merchantability and/or fitness for a particular purpose, with respect to such information and specifically disclaims all such warranties. Users are advised that decisions regarding drug therapy are complex medical decisions requiring the independent, informed decision of an appropriate health child care leader, and the information is provided for informational purposes only. The entire monograph for a drug should be reviewed for a thorough understanding of the drug's actions, uses and side effects. The [employer] does not endorse or recommend the use of any drug. The information is not a substitute for medical care. AHFS? Patient Medication Information?. ? Copyright, 2023. [employer]?, [address], [address], [place], [place]. All Rights Reserved. Duplication for commercial use must be authorized by [facility]. Selected Revisions: April 16, 2021. AHFS? Patient Medication Information?. ? Copyright, 2023 [facility]2024-11-27 12:45:19 Images from the original note were not included. [id number] Cephalexin Brand Name(s): Keflet? Tablets, Keflex?, Keftab? Tablets, Panixine? Disperdose; also available generically WHY is this medicine prescribed? Cephalexin is used to treat certain infections caused by bacteria such as pneumonia and other respiratory tract infections; and infections of the bone, skin, ears, , genital, and urinary tract. Cephalexin is in a class of medications called cephalosporin antibiotics. It works by killing bacteria. Antibiotics such as cephalexin will not work for colds, flu, or other viral infections. Using antibiotics when they are not needed increases your risk of getting an infection later that resists antibiotic treatment. HOW should this medicine be used? Cephalexin comes as a capsule, tablet, and suspension (liquid) to take by mouth. It is usually taken with or without food every 6 or 12 hours for 7 to 14 days, depending on the condition being treated. Take cephalexin at around the same times every day. Follow the directions on your prescription label carefully, and ask your doctor or pharmacist to explain any part you do not understand. Take cephalexin exactly as directed. Do not take more or less of it or take it more often than prescribed by your doctor. Shake the liquid well before each use to mix the medication evenly. You should begin to feel better during the first few days of treatment with cephalexin. If your symptoms do not improve or get worse, call your doctor. Continue to take cephalexin until you finish the prescription even if you feel better. If you stop taking cephalexin too soon or skip doses, your infection may not be completely treated and the bacteria may become resistant to antibiotics. Are there OTHER USES for this medicine? Cephalexin is also sometimes used for certain penicillin allergic patients who have a heart condition and are having a dental or upper respiratory tract (nose, mouth, throat, voice box) procedure, in order to prevent them from developing a heart valve infection. This medication may be prescribed for other uses; ask your doctor or pharmacist for more information. What SPECIAL PRECAUTIONS should I follow? Before taking cephalexin, ? tell your doctor and pharmacist if you are allergic to cephalexin; other cephalosporin antibiotic such as cefaclor, cefadroxil cefazolin (Ancef, Kefzol), cefdinir, cefditoren (Spectracef), cefepime (Maxipime), cefixime (Suprax), cefotaxime (Claforan), cefotetan, cefoxitin (Mefoxin), cefpodoxime, cefprozil, ceftaroline (Teflaro), ceftazidime (Fortaz, Tazicef, in Avycaz), ceftibuten (Cedax), ceftriaxone (Rocephin), and cefuroxime (Zinacef); penicillin antibiotics; or any other medications. Also tell your doctor if you are allergic to any of the ingredients in cephalexin capsules, tablets, or suspension.Ask your pharmacist for a list of the ingredients. ? tell your doctor and pharmacist what prescription and nonprescription medications, vitamins, nutritional supplements, and herbal products you are taking or plan to take while taking cephalexin. Your doctor may need to change the doses of your medications or monitor you carefully for side effects. ? you should know that cephalexin may decrease the effectiveness of hormonal contraceptives ( control pills, patches, rings, and injections). You will need to use another method of contraception to prevent while taking cephalexin. Talk to your doctor about other ways to prevent while you are taking this medication. ? tell your doctor if you have or have ever had any kind of allergies, gastrointestinal disease (GI; affecting the stomach or intestines), especially colitis (condition that causes swelling in the lining of the colon [large intestine]), or kidney or liver disease. ? tell your doctor if you are , plan to become , or are breast-feeding. If you become while taking cephalexin, call your doctor. What SPECIAL DIETARY instructions should I follow? Unless your doctor tells you otherwise, continue your normal diet. What should I do IF I FORGET to take a dose? Take the missed dose as soon as you remember it. However, if it is almost time for the next dose, skip the missed dose and continue your regular dosing schedule. Do not take a double dose to make up for a missed one. What SIDE EFFECTS can this medicine cause? Cephalexin may cause side effects. Tell your doctor if any of these symptoms are severe or do not go away: ? nausea ? diarrhea ? vomiting ? heartburn ? stomach pain ? rectal or genital itching ? dizziness ? extreme tiredness ? agitation ? confusion ? headache ? joint pain Some side effects can be serious. If you experience any of the following symptoms, call your doctor immediately or get emergency medical treatment: ? watery or bloody stools, stomach cramps, or fever during treatment or for up to two or more months after stopping treatment ? rash ? itching ? hives ? swelling of the face, throat, tongue, lips, and eyes ? difficulty breathing or swallowing ? wheezing ? a return of fever, sore throat, chills, or other signs of infection ? hallucinations (seeing things or hearing voices that do not exist) If you experience a serious side effect, you or your doctor may send a report to the Food and Drug Administration's (FDA) MedWatch Adverse Event Reporting program online (https://www.fda.gov/Safety/MedWatch) or by phone ( ). What should I know about STORAGE and DISPOSAL of this medication? Keep this medication in the container it came in, tightly closed, and out of reach of children. Store the capsules and tablets at room temperature and away from excess heat and moisture (not in the bathroom). Keep liquid medicine in the refrigerator, tightly closed, and dispose of any unused medication after 14 days. . Unneeded medications should be disposed of in special ways to ensure that pets, children, and other people cannot consume them. However, you should not flush this medication down the toilet. Instead, the best way to dispose of your medication is through a medicine take-back program. Talk to your pharmacist or contact your local garbage/recycling department to learn about take-back programs in your community. See the FDA's Safe Disposal of Medicines website (https://goo.gl/c4Rm4p) for more information if you do not have access to a take-back program. It is important to keep all medication out of sight and reach of children as many containers (such as weekly pill minders and those for eye drops, creams, patches, and inhalers) are not child-resistant and young children can open them easily. To protect young children from poisoning, always lock safety caps and immediately place the medication in a safe location - one that is up and away and out of their sight and reach. https://www.upandaway.org What should I do in case of OVERDOSE? In case of overdose, call the poison control helpline at . Information is also available online at https://www.poisonhelp.org/help. If the victim has collapsed, had a seizure, has trouble breathing, or can't be awakened, immediately call emergency services at 761. Symptoms of overdose may include: ? nausea ? vomiting ? diarrhea ? pink, red, or dark brown urine ? stomach pain What OTHER INFORMATION should I know? Keep all appointments with your doctor and the laboratory. Your doctor may order certain lab tests to check your response to cephalexin. Before having any laboratory test, tell your doctor and the laboratory personnel that you are taking cephalexin. If you are diabetic and test your urine for sugar, use Clinistix or TesTape (not Clinitest) to test your urine while taking this medication. Do not let anyone else take your medication. Your prescription is probably not refillable. It is important for you to keep a written list of all of the prescription and nonprescription (iwrh-inr-lyxlnpg) medicines you are taking, as well as any products such as vitamins, minerals, or other dietary supplements. You should bring this list with you each time you visit a doctor or if you are admitted to a hospital. It is also important information to carry with you in case of emergencies. This report on medications is for your information only, and is not considered individual patient advice. Because of the changing nature of drug information, please consult your physician or pharmacist about specific clinical use. The [employer] represents that the information provided hereunder was formulated with a reasonable standard of care, and in conformity with professional standards in the field. The [employer] makes no representations or warranties, express or implied, including, but not limited to, any implied warranty of merchantability and/or fitness for a particular purpose, with respect to such information and specifically disclaims all such warranties. Users are advised that decisions regarding drug therapy are complex medical decisions requiring the independent, informed decision of an appropriate health child care leader, and the information is provided for informational purposes only. The entire monograph for a drug should be reviewed for a thorough understanding of the drug's actions, uses and side effects. The [employer] does not endorse or recommend the use of any drug. The information is not a substitute for medical care. AHFS? Patient Medication Information?. ? Copyright, 2023. [employer]?, [address], [address], [place], [place]. All Rights Reserved. Duplication for commercial use must be authorized by [facility]. Selected Revisions: September 15, 2015. AHFS? Patient Medication Information?. ? Copyright, 2023 [place]2024-11-27 12:45:12 Images from the original note were not included. 14 Heart-Healthy Diet Five Tips to Better Health A heart-healthy diet is designed to protect your heart from further damage through long-term diet and lifestyle changes. Along with your medication and exercise, a heart-healthy diet can help reduce your risk for heart-related problems. The heart-healthy meal plan is based on limiting total fat, saturated fat, cholesterol and sodium while increasing your intake of fiber and omega-3 fatty acids (good fats). When making changes in your diet: "Take Five" 1. Limit saturated fat and trans fats. Remember DART to identify common sources: Dairy (e.g., whole milk, cream, butter and regular cheese) - Animal fat (e.g., steak or chicken with skin) - Restaurant dishes, some fried foods - Treats (chocolate, cookies and other baked goods, and products with "partially hydrogenated oils" in the ingredient list) 2. Limit the amount of cholesterol you eat to less than 200 mg (milligrams) per day. Foods high in cholesterol include egg yolks, fatty meat, whole milk and regular cheese. 3. Cut back on sodium by getting rid of the saltshaker and avoiding high-sodium foods like deli meats, frozen meals, condiments, canned foods and other convenience items. Check the label and choose foods with no more than 140 mg of sodium per serving. 4. Get more fiber. Aim for 20 to 30 grams of fiber per day from sources like whole grains, fruit, vegetables, and beans. 5. Eat approximately 4 ounces of fish twice a week to get more omega-3 fatty acids. [place], cod, trout and tuna are high in omega-3s. Try low-sodium canned tuna for a less expensive option. Other Heart-Healthy diet information: ? Check with your doctor before drinking ANY alcohol. ? Use caffeine (coffee, tea, soft drinks) in moderation. Caffeine may affect your blood pressure and heart health. ? When dining out: o Ask for nutrition information to help stay on track with your heart-healthy diet. o Ask for sauces and dressings on the side. ? Read the Nutrition Facts label to be sure you are following the Heart-Healthy Guidelines. Heart-Healthy Diet Food Group Avoid Better Choices Milk/Dairy Whole milk Regular or processed cheese products Cream Nonfat (skim) or 1% milk Cheeses low in saturated fat and sodium Nonfat or low-fat yogurt Meat/ Protein Regular ground meats Deep-fried meats Fatty cuts such as ribeye or brisket White meat poultry without sl? Fresh fish or low-sodium canned fish Lean beef cuts: round steak, tenderloin, sirloin tips Vegetable protein foods, like beans, veggie burgers or tofu Ground sirloin or round Vegetables & Fruits Fried fruit such as plantain or fried fruit pies Fruits served with butter or cream Vegetables canned with sodium Fresh fruits and vegetables Frozen fruits and vegetables, no added sauces, gravies or salted seasonings Bread & Cereals High-fat bakery products, such as doughnuts, biscuits or croissants Snacks made with partially hydrogenated oils, like cheese puffs Products with whole grains as the first ingredient Breads with at least 2 grams of fiber per serving Cereals that contain at least 5 grams of fiber per serving Snacks like air-popped popcorn, low-salt pretzels Fats Butter Lard Partially hydrogenated oils Monounsaturated fats such as olive, grapeseed, or canola oil Whipped spreads Spreads with zero trans fat Reading a Food Label Reference: Academy of Nutrition and Dietetics, Adult Nutrition Care Manual, 2012. If you would like to obtain more information on a heart-healthy diet, please contact Outpatient Nutrition Services by calling [phone]. [id number] 11/12 [facility]2024-11-27 12:45:06 Images from the original note were not included. [id number] How to Quit Smoking Smoking is a hard habit to break. About half of all people who've ever smoked have been able to quit. Most people who still smoke want to quit. Here are some of the best ways to stop smoking. Keep in mind how quitting can help your health The health benefits of quitting start right away. They keep improving the longer you go without smoking. Knowing this can help inspire you to stay on track. These benefits occur at any age. Quitting is a good choice whether you are 17 or 70. Some of the health benefits after your last cigarette include: ? After 20 minutes: Your blood pressure and pulse return to normal. ? After 8 hours: Your oxygen levels return to normal. ? After 2 days: Your ability to smell and taste start to get better as damaged nerves regrow. ? After 2 to 3 weeks: Your circulation and lung function get better. ? After 1 to 9 months: You have less coughing, congestion, and shortness of breath. You feel less tired. ? After 1 year: Your risk of heart attack goes down by 50%. ? After 5 years: Your risk of lung cancer goes down by 50%. Your risk of stroke becomes the same as a nonsmoker?s. What about going cold turkey? You may have heard about quitting "cold turkey." This means stopping all at once. Going cold turkey is an option. But it's not the most successful way to quit smoking. Trying to cut back slowly often doesn't work as well either. This may be because it continues the habit of smoking. You may also inhale more smoke while smoking fewer cigarettes. This leads to the same amount of nicotine in your body. But quitting cold turkey or cutting back slowly aren't your only choices. Using tobacco cessation medicines with behavioral counseling may be a better choice to help you succeed. Talk with your provider about your choices for support while you quit smoking. Get support Support programs can be a big help, especially for heavy smokers. These groups offer information, ways to change behavior, and peer support. Ask your provider for some resources. Here are some other ways to find support: ? Smokefree.gov at www.smokefree.gov or 248-MLGP-WUK (816-404-6648) ? [place] [employer] at www.lung.org/quit-smoking or 060-757-0669 ? [place] [employer] at www.cancer.org/quitsmoking or 950-242-9596 Support at home is important too. Family and friends can offer praise and reassurance. Ask your friends who smoke to support your decision. Try to stay away from situations that trigger the desire to smoke. This may include smoking with your morning coffee. Or smoking after a meal. Create new routines to help decrease your cravings. If the smoker in your life finds it hard to quit, encourage them to keep trying. Remind them of all of the benefits to themselves and people they love. Try hidh-dcl-ocmcxoe nicotine replacements Nicotine replacement therapy may make it easier to quit. You can buy some aids without a prescription. These include a nicotine patch, gum, and lozenges. But it's best to use these under the care of your healthcare provider. The skin patch gives a steady supply of nicotine. Nicotine gum and lozenges give short-time doses of low levels of nicotine. Both methods reduce the craving for cigarettes. If you have upset stomach (nausea), vomiting, dizziness, weakness, or a fast heartbeat, stop using these products and see your provider. Ask about prescription medicine After reviewing your smoking patterns and past attempts to quit, your provider may offer a prescription medicine. These include bupropion, varenicline, a nicotine inhaler, or nasal spray. Each has advantages and side effects. Your provider can go over these with you. Keep trying Most smokers try to quit many times before they succeed. It?s important not to give up. Last Reviewed Date: 2022 00:00:00 ? [id number] [employer]. All rights reserved. This information is not intended as a substitute for professional medical care. Always follow your healthcare professional's instructions. [facility]2024-11-27 12:44:59 Images from the original note were not included. [id number] Discharge Instructions for Peripheral Arterial Disease (PAD) You have been diagnosed with peripheral arterial disease (PAD). Peripheral arteries deliver oxygen-rich blood to your legs and feet. Over time, your blood vessel lockwood may thicken as they build up with a fatty substance (plaque). As plaque builds up in an artery, blood flow can be reduced or even blocked. This causes PAD. This can lead to pain when you walk (claudication) and pain when you rest. It can even cause ulcers or tissue due to lack of blood supply (gangrene). Home care ? Stay at a healthy weight. Get help to lose any extra pounds. ? Eat more fresh fruits and vegetables ? Limit canned, dried, packaged, and fast foods. ? Limit your salt intake. Don?t add more salt to your food at the table. ? Season foods with herbs instead of salt when you cook. ? Lower the amount of cholesterol, and saturated and trans fats in your diet. ? Start an exercise program. Ask your healthcare provider how to get started. You can benefit from simple activities, such as walking or gardening. ? Break your smoking habit. Join a stop-smoking program for a better chance of success. ? Take your medicines as directed. Don?t skip doses. ? If you have diabetes, manage your blood sugar as directed by your healthcare provider. Follow-up Talk to your healthcare provider about treatment choices. These may include an exercise program, medicines, angioplasty, or surgery. When to call your healthcare provider Call your healthcare provider right away if any of the following occur: ? Pain in your legs or a feeling that your legs are weak or giving out ? Constant tingling, numbness, weakness, or coldness in your feet ? Change in the color of your toes ? Open sores that won?t heal on your toes, feet, or legs ? Chest pain ? Shortness of breath ? Trouble speaking or understanding Last Reviewed Date: 2021 00:00:00 ? [id number] [employer]. All rights reserved. This information is not intended as a substitute for professional medical care. Always follow your healthcare professional's instructions. [facility]2024-11-27 11:50:40 Images from the original note were not included. Consult requested for wound(s) on bilateral legs Patient history: Patient is a 69 y.o. female, admitted on 02/26/2024 with PMH of HTN, DM, PAD s/p AX bifemoral bypass 05/26, Thomas Danlos Syndrome, BLE ulcers, SDH, Pulmonary fibrosis, and COPD. She presents with non-healing LLE ulcer with concern for bone exposure. She underwent angiogram conssitent with LLE occlusion. Therefore she is being admitted for vascular evaluation and wound care / like evaluate and treat for OM. Patient assessment: Patient met in bed, awake and alert. Wound on LLE was dressed with Xeroform, ABD Pad, Kerlix. Wound on RLE left open to air. Per patient the wound on RLE has been left open to air and she thought it is healing well. Verbalized pain to LLE wound. Dr. Quezada met in patient's room. Plan was discussed to discharge patient to home today and she will follow up with outpatient dermatology for a wound biopsy. Patient will continue to follow up with her current wound care provider. Encouraged patient to inquire about HBOT and home lymphedema pump to promote wound healing and control edema in legs. Wound assessed and redressed by frit burner today. Wound Assessment: Wound Location: LLE Wound Type: Non-healing wound, unclear etiology Wound measurement: 12 cm x 10 cm x 0.2 cm Wound Description: 75%, non granulation, 25% slough Tunneling: No Undermining: No Drainage amount and type: large, serosanguineous Odor: mild Wound Edges: irregular Periwound: macerated, erythematous, edematous Wound Care Goal: healing Wound Care Plan: - Clean with Vashe, pat dry with 4x4 gauze. - Apply Acticoat cut to fit, then Durafiber cut to fit to wound bed. Cover with ABD Pad. Secure with Kerlix roll gauze and tape. - Change dressing daily. Change sooner with dressings saturation or soilage. If wound care products are not available in your unit supply room, please check with [facility] [employer] or frit burner. ==== Recommendations: -Turn every 2 hours, uses wedges, offload heels with two pillows, consult/follow RD recommendations. - No diapers EXCEPT with ambulation or sitting in a chair - External catheter - Low air loss bed *Low air loss beds do not substitute for turning schedule - Avoid elevating head of bed more than 30 degrees. - Avoid use of topical creams with foam dressings. - Do not use Allevyn with runny stools. VENTURA Aguayo informed of recommendations. MD Hima informed of and approved recommendations via in-person discussion. Unit nurse is responsible for wound care. Reconsult if wound deteriorates or does not improve. Please call if you have questions. Gladis Gacria RN, BSN, [facility] [place]: [phone] [facility]: [phone] [facility] Wound Care Registered NurseMatagorda Regional Medical [id number] 19:41:10 The patient is Moderately Stable - Low risk of patient condition declining or worsening T [facility]2024-11-22 13:58:56 Chief Complaint Patient presents with Follow-up Left lower leg PRUDENCE Britt II [facility]2024-10-24 13:32:52 Chief Complaint Patient presents with Follow-up Left lower leg ChantePEREZ TejadaA II [facility]2024-09-23 13:28:13 Chief Complaint Patient presents with Follow-up Left lower leg PRUDENCE Britt II [place] [id number] 15:50:27 Chief Complaint Patient presents with Follow-up LLE PRUDENCE Britt II [place] Cmpfrl1146-23-37 10:13:01 Chief Complaint Patient presents with [facility] D/C Lower extremity cellulitis, oral cefadroxil [phone] (home) Brendon Guzman CMA II [facility] [id number] 15:57:18* EXAM: Ext Lower Arterial Doppler unilat US, Left DATE: 08/16/2023 15:57. INDICATION: - severe PAD , non healing wound infection. COMPARISON: None available. TECHNIQUE: Multiplanar grayscale, color Doppler and spectral Doppler ultrasound images of the left lower extremity arteries. FINDINGS: Left Extremity Waveforms: * Common Femoral Artery: 39 cm/s, Monophasic * Superficial Femoral Artery: 107 cm/s, Monophasic * Popliteal Artery: 39 cm/s, Monophasic * Posterior Tibialis Artery: 32 cm/s, Monophasic * Dorsalis Pedis Artery: 26 cm/s, Monophasic * Anterior Tibialis Artery: 18 cm/s, Monophasic * Other: femoral to femoral bypass graft is patent. IMPRESSION: Dampened waveforms throughout the lower extremity. No focal high-grade stenosis or occlusion. [facility]2024-05-16 15:40:35* EXAM: Ext Lower Venous Doppler Unilat US, Left DATE: 08/16/2023 15:40. INDICATION: - swelling, known vasculopath. COMPARISON: None available. TECHNIQUE: Multiplanar grayscale, color Doppler and spectral Duplex Doppler ultrasound of the left lower extremity veins. FINDINGS: LEFT LOWER EXTREMITY VEINS * Common Femoral: Patent. * Femoral (SFV): Patent. * Popliteal: Patent. * Proximal Greater Saphenous: Patent. * Deep Femoral Veins: Patent. * Anterior Tibial: Not seen. * Posterior Tibial: Patent. * Peroneal: Patent. Other: None. IMPRESSION: No deep venous thrombosis (DVT) is identified within the visible LEFT lower extremity veins. [facility]2024-03-29 11:24:37 Chief Complaint Patient presents with Follow-up Follow up from fall. Discharged on 05/30/2023 from [facility]. Subdural hematoma Debi Singh MA II [facility]2024-03-08 11:38:43 Patient not willing to schedule at this time stated she is having transportation issues. Yara stated she would call back to schedule once her transportation issues have been resolved. F OPERATING ENGINEER Lynn Forbes RNCleveland Clinic Children's Hospital for RehabilitationMbrpaz3369-47-01 14:48:02 I have reached out to Mrs Vee after she left [place] without being seen 05/30 after ID consulted. I explained the incidental CT thorax finding, the cavitary lung lesion, further and stressed the importance of working this up as soon as possible. She denies recent cough, weight loss, fever. I gave her ER precautions that would warrant an expedited work up inpatient. I have placed a consult for outpatient pulmonology Her follow up with me is scheduled for 06/18 at 3:00pm as a new patient. [facility] [id number] 14:40:29 Vancomycin Therapeutic Monitoring Note Pharmacy to monitor vancomycin dosing for patient Yara Vee, [id number]. Primary Physician: Dr. Cannon ID Physician, if following: Indication for Vancomycin and Goal Trough: Pneumonia - Trough 12-17 mcg/ml Age: [age] year old Weight: Wt Readings from Last 1 Encounters: 05/27/23 57.5 kg (126 lb 12.2 oz) Duration of Antibiotics: TBD Concurrent Antibiotics: Microbiology: Coagulase negative Staphylococcus Abnormal Laboratory Data and Vancomycin Dosing: Date Scr (mg/dL) CrCL (mL/min) Dosing Regimen and frequency @ Times (mg) Vancomycin Level @ Time (mcg/mL) 05/29/23 0.61 80 ml/min 750mg q 12h @ 2010 started - 05/30/23 0.53 91.4ml/min 750mg q 12h 829 - - - - - - Assessment and Plan: Plan is to: Continue current regimen Plan to draw next trough level on: before AM dose Thank you for allowing pharmacy to participate in the care of this patient. Please feel free to contact us with any questions or concerns. Kendra Holt [facility] Department of Pharmacy 05/30/2023 14:24 F OPERATING ENGINEER Kendra Holt [facility]2024-02-28 10:24:16 Problem: Discharge Planning Goal: Adequate for discharge Outcome: Progressing as expected Problem: Falls, Risk of Goal: Absence of falls Outcome: Progressing as expected Problem: Infection, Risk of or Actual Goal: Absence of infection Outcome: Progressing as expected Problem: Pain Goal: Control of pain at or below patient's documented comfort goal Outcome: Progressing as expected Goal: Reduction in pain sensation Outcome: Progressing as expected Problem: Skin integrity Impaired (Risk or Actual) Goal: Wound healing Outcome: Progressing as expected Goal: Prevention of new skin breakdown Outcome: Progressing as expected Problem: Bleeding, Risk of Goal: Absence of impaired coagulation signs and symptoms Outcome: Progressing as expected Goal: Absence of active bleeding Outcome: Progressing as expected [facility]2024-02-28 04:51:43 Problem: Discharge Planning Goal: Adequate for discharge Outcome: Progressing as expected Problem: Falls, Risk of Goal: Absence of falls Outcome: Progressing as expected Problem: Infection, Risk of or Actual Goal: Absence of infection Outcome: Progressing as expected Problem: Pain Goal: Control of pain at or below patient's documented comfort goal Outcome: Progressing as expected Goal: Reduction in pain sensation Outcome: Progressing as expected Problem: Skin integrity Impaired (Risk or Actual) Goal: Wound healing Outcome: Progressing as expected Goal: Prevention of new skin breakdown Outcome: Progressing as expected Problem: Bleeding, Risk of Goal: Absence of impaired coagulation signs and symptoms Outcome: Progressing as expected Goal: Absence of active bleeding Outcome: Progressing as expected F OPERATING ENGINEER Harshil Negro [facility] - [id number] 15:55:01 Vancomycin Therapeutic Monitoring Note Pharmacy to monitor vancomycin dosing for patient Yara Vee, [id number]. Primary Physician: Dr. Weston ID Physician, if following: N/A Indication for Vancomycin and Goal Trough: Bacteremia - Trough 12-17 mcg/ml Age: [age] year old Weight: Wt Readings from Last 1 Encounters: 05/27/23 57.5 kg (126 lb 12.2 oz) Duration of Antibiotics: N/A Concurrent Antibiotics: None Microbiology: Blood cx-Gram positive (05/27) Laboratory Data and Vancomycin Dosing: Date Scr (mg/dL) CrCL (mL/min) Dosing Regimen and frequency @ Times (mg) Vancomycin Level @ Time (mcg/mL) 05/29/23 0.61 79.4 ml/min Vanco 750 mg q12h - - - - - - - Assessment and Plan: Plan is to: Start vancomycin scheduled at a dose of: 750 mg q12h Plan to draw next trough level on: Prior to third/fourth dose At the time of this note, administration of dose 1 has not been administered. 750 mg IV Q12hr (infused over 1 hr) AUC/EULOGIO 537 mcg*hr/mL (goal 400 to 600 mcg*hr/mL)-Trough 16.8 mcg/mL Thank you for allowing pharmacy to participate in the care of this patient. Please feel free to contact us with any questions or concerns. Tiffany Griffin RPH, PharmD [facility] Department of Pharmacy 05/29/2023 15:48 Griffin HUNovant Health Rowan Medical CenterKdiwjb3849-71-17 06:14:58 Problem: Discharge Planning Goal: Adequate for discharge Outcome: Progressing as expected Problem: Falls, Risk of Goal: Absence of falls Outcome: Progressing as expected Problem: Infection, Risk of or Actual Goal: Absence of infection Outcome: Progressing as expected Problem: Pain Goal: Control of pain at or below patient's documented comfort goal Outcome: Progressing as expected Goal: Reduction in pain sensation Outcome: Progressing as expected Problem: Skin integrity Impaired (Risk or Actual) Goal: Wound healing Outcome: Progressing as expected Goal: Prevention of new skin breakdown Outcome: Progressing as expected Problem: Bleeding, Risk of Goal: Absence of impaired coagulation signs and symptoms Outcome: Progressing as expected Goal: Absence of active bleeding Outcome: Progressing as expected [facility]2024-02-26 09:29:28 Problem: Discharge Planning Goal: Adequate for discharge Outcome: Progressing as expected Problem: Falls, Risk of Goal: Absence of falls Outcome: Progressing as expected Problem: Infection, Risk of or Actual Goal: Absence of infection Outcome: Progressing as expected Problem: Pain Goal: Control of pain at or below patient's documented comfort goal Outcome: Progressing as expected Goal: Reduction in pain sensation Outcome: Progressing as expected Problem: Skin integrity Impaired (Risk or Actual) Goal: Wound healing Outcome: Progressing as expected Goal: Prevention of new skin breakdown Outcome: Progressing as expected Post Critical access hospitalHcdpqo3875-52-28 00:58:48 Problem: Discharge Planning Goal: Adequate for discharge Outcome: Progressing as expected Problem: Falls, Risk of Goal: Absence of falls Outcome: Progressing as expected Problem: Infection, Risk of or Actual Goal: Absence of infection Outcome: Progressing as expected Problem: Pain Goal: Control of pain at or below patient's documented comfort goal Outcome: Progressing as expected Goal: Reduction in pain sensation Outcome: Progressing as expected Problem: Skin integrity Impaired (Risk or Actual) Goal: Wound healing Outcome: Progressing as expected Goal: Prevention of new skin breakdown Outcome: Progressing as expected [facility] Harshil Gustafson Critical access hospitalCszbjg3932-85-54 17:32:10 Care plan initiated [place] [address]-02-25 14:46:16 Report given to Cuauhtemoc WHITEHEAD in [address] [facility] De Patel [place] [id number] 13:36:58 Pt. With family at bedside, NAD Noted, remains on monitoring devices with HOB elevated. Pt. Pending neurosg consult. [place] [address]-02-25 13:05:[address] scan and brought to [facility] with RN and trauma team. Continuous cardiac monitoring and serial vital signs monitored by RN. Sheree Aparicio RN [place] [address]64-02-25 12:56:[address] via stretcher [place] [id number] 12:50:[address] scan with RN and trauma team. Continuous cardiac monitoring and serial vital signs monitored by RN. Sheree Aparicio RN [place] [address]-02-25 11:13:23 Report received from EMS. Trauma protocol initiated. Trauma team members at bedside, primary and secondary survey in progress. Pt placed on continuous cardiac monitoring, pulse oximetry, and serial vital signs. Yara Vee is a 68 year old female accepted as a trauma transfer from [facility]. Pt. Noted to have subdural hematoma, lac repair to head. Pt. Fell at home last night, uknown LOC. Recent cardiac procedure. Elevated WBC, tachycardic on arrival to ED, BP 81/[address] on [address]. Trauma faculty Dr. Gross at bedside on pt. Arrival. Sheree Aparicio RN [place] [address]-02-25 09:56:28 [facility] arrived for transport, report given to medic. [place] [address]-02-25 09:42:56 Report to Sola at [facility]. [place] [address]-02-25 09:07:[address] scan and brought to ER[facility] with RN and trauma team. Continuous cardiac monitoring and serial vital signs monitored by ki. [place] [address]-02-25 09:03:[address] scan with RN and trauma team. Continuous cardiac monitoring and serial vital signs monitored by ki whitehead. [place] [address]-02-25 09:01:12 [facility] ETA 45min-1hr [facility] Amanda Salazar [facility]2024-02-25 08:48:42 Patient upgraded to trauma based on MD request. [facility]2024-02-25 08:39:33 Associated Order(s): Laceration Repair Laceration Repair Date/Time: 05/27/2023 8:38 AM Performed by: Tim Adair MD Authorized by: Tim Adair MD Consent: Consent obtained: Verbal Risks discussed: Poor wound healing, poor cosmetic result, pain and infection [place] protocol: Imaging studies available: yes Patient identity confirmed: Arm band and hospital-assigned identification number Anesthesia: Anesthesia method: Local infiltration Local anesthetic: Lidocaine 1% w/o epi Laceration details: Location: Scalp Length (cm): 4 Depth (mm): 2 Pre-procedure details: Preparation: Patient was prepped and draped in usual sterile fashion and imaging obtained to evaluate for foreign bodies Exploration: Hemostasis achieved with: Direct pressure Imaging outcome: foreign body not noted Contaminated: no Treatment: Area cleansed with: Chlorhexidine Amount of cleaning: Standard Irrigation method: Pressure wash Debridement: None Scar revision: no Skin repair: Repair method: Sutures Suture size: 0-0 Wound skin closure material used: vicryl. Suture technique: Simple interrupted Number of sutures: 4 Approximation: Approximation: Close Repair type: Repair type: Simple Post-procedure details: Dressing: Open (no dressing) Procedure completion: Tolerated [place] [id number] 08:05:00 at bedside repair head wound. [place] [id number] 07:07:52 Report given to Diana WHITEHEAD [facility]2024-02-25 06:49:42 Pt arrived by wheelchair with c/o fall that occur at 2:15am. Pt does not remember falling down. Pt had had surgery Sunday and has been weak since. Pt has a laceration on the back of her head. Pt's son reports she was outside at the backdoor, and possibly tripped over the door frame ( that is brick width). Pt confirms blood thinners. Pt denies LOC. [facility] Helen Espinosa Critical access [id number] 07:38:05* Exam: Chest 1view DX Reason for Exam: - post op Comparison Exam: None available Discussion: Cardiac silhouette is within normal limits for size. No pulmonary edema nor pleural effusions appreciated. Ill-defined airspace opacification seen overlying the left upper lung. No appreciable pneumothorax. Multiple jameson are seen overlying the right lung apex. Impression: 1. Ill-defined airspace opacification seen overlying the left upper lung. No appreciable pneumothorax. [facility]
[2024-08-19] MEDS ORDERED: LIDOCAINE 2% W/EPI 1:200,000 MPF 20 ML VIAL IM ONE (01:00)
[2024-08-19] MEDS ORDERED: TDAP (DIPHTH,PERTUSS(ACELL),TET VAC) 0.5 ML VIAL IMVAC ONE (01:03)
[2024-08-19] MEDS ORDERED: HYDROCODONE/APAP 7.5/325 MG TAB ONE (01:03)
--- NOTE | 2024-08-19 01:56 | EDPHYS ---
Physician Documentation [facility] Name: Yara Vee Age: 69 yrs Sex: Female : 1955 Arrival Date: 08/18/2024 Time: 23:36 Bed 10 Private MD: Jesse Arcos ED Physician Johnson Navas HPI: 08/19 01:00 This 69 yrs old Female presents to ER via Unassigned with complaints of Laceration To cp Leg. 01:00 The patient has a laceration occurred at home, The injury was sharp edge of metal cage. cp The laceration(s) is(are) located on the right lower leg. Onset: The symptoms/episode began/occurred this evening. Associated signs and symptoms: Pertinent positives: heavy bleeding, Pertinent negatives: suspected foreign body. Historical: - Allergies: 00:00 No Known Allergies; vc1 - PMHx: 00:00 chronic back pain; Hyperlipidemia; Hypertension; thomas danlos syndrome; vc1 - PSHx: 00:00 bifemoral bypass; vc1 - Immunization history:: Last tetanus immunization: > 10 years ago. - Infectious Disease History:: Denies. - Social history:: Smoking status: Patient reports the use of cigarette tobacco products, 7/day. ROS: 01:10 MS/extremity: Positive for laceration, of the right lower leg, Negative for cp paresthesias, 01:10 Constitutional: Negative for body aches, chills, fever, cp 01:10 Cardiovascular: Negative for chest pain, palpitations, 01:10 Neuro: Negative for dizziness, loss of consciousness, syncope, near syncope, weakness, 01:10 All other systems are negative, Exam: 01:10 Constitutional: The patient appears in no acute distress, alert, awake, non-toxic, well cp developed, well nourished, 01:10 Head/Face: Normocephalic, atraumatic. cp 01:10 Chest/axilla: Inspection: normal, cp 01:10 Cardiovascular: Rate: normal, Edema: ankle edema, that is very mild, cp 01:10 Respiratory: the patient does not display signs of respiratory distress, Respirations: normal, no use of accessory muscles, no retractions, 01:10 Skin: injury, laceration(s), the wound is approximately 6.5 cm(s), of the right lower leg, that can be described as no foreign body, linear, with moderate bleeding, 01:10 Neuro: Orientation: to person, place \T\ time. Mentation: is normal, Vital Signs: 00:00 BP 138 / 88; Pulse 108; Resp 16; Temp 97.9; Pulse Ox 99% ; Weight 49.44 kg; Height 5 vc1 ft. 3 in. ; Pain 8/10; 00:00 Body Mass Index 19.31 (49.44 kg, 160.02 cm) vc1 00:00 Pain Scale: Adult vc1 Laceration: 01:55 Wound Repair of 6.5cm ( 2.6in ) subcutaneous laceration to right lower leg. Linear cp shaped.. moderate bleeding. Distal neuro/vascular/tendon intact. Anesthesia: Wound infiltrated with 10 mls of 2% lidocaine. Wound prep: Moderate cleansing by me, Wound irrigation by me. Skin closed with 1 4-0 Prolene using running sutures. Dressed with Bacitracin, 4x4's. Patient tolerated well. MDM: 00:37 Medical Screening Exam initiated cp 01:55 Data reviewed: vital signs, nurses notes, and as a result, I will discharge patient. cp 01:55 Differential diagnosis: superficial laceration, tendon injury, vascular injury. I cp considered the following discharge prescriptions or medication management in the emergency department Medications were administered in the Emergency Department. See MAR. Counseling: I had a detailed discussion with the patient and/or guardian regarding the historical points, exam findings, and any diagnostic results supporting the discharge/admit diagnosis, the need for outpatient follow up, a family practitioner, to return to the emergency department if symptoms worsen or persist or if there are any questions or concerns that arise at home. Response to treatment: the patient's symptoms have markedly improved after treatment, and as a result, I will discharge patient. Special discussion: I discussed in detail with the patient the higher chance of wound infection based on his presenting history. 08/19 01:10 Order name: Dressing - Wound; Complete Time: cp 08/19 01:10 Order name: Gloves, Sterile; Complete Time: cp 08/19 01:10 Order name: Setup Suture Tray; Complete Time: cp 08/19 01:10 Order name: Wound Care; Complete Time: 02:11 cp Administered Medications: 01:27 Drug: Boostrix Tdap IM 0.5 ml IM once; as a single dose Route: IM; Site: right deltoid; vc1 02:11 Follow up: Response: (VIS) Vaccine information sheet provided today. Questions and/or vc1 concerns addressed. VIS edition date: Nov 05, 2020.; No adverse reaction 01:28 Drug: Hydrocodone-Acetaminophen PO (7.5 mg-325 mg) 1 tabs PO once; RASS on ADMIN: vc1 Combtv4, Very Agttd3, Agttd2, Rstlss1, AlertClm0, Drwsy-1, Lt Sdtn-2, Mod Sdtn-3, Dp Sdtn-4, UnArsble-5 Route: PO; 02:11 Follow up: Response: No adverse reaction; Marked relief of symptoms vc1 02:11 Drug: Lidocaine Infiltration (2 %) 20 ml 5 ml Infiltration once; to bedside with vc1 epinephrine {Note: Administered by CATARINA Swift to right foot.} Volume: 5 ml; Route: Infiltration; 02:40 Drug: Amoxicillin-Clavulanate PO 875 mg PO once Route: PO; vc1 02:40 Follow up: Response: Medication administered at discharge. vc1 Disposition: 19:46 Co-signature as Attending Physician, Johnson Navas MD I agree with the assessment sp4 and plan of care. I reviewed the patient's care provided by Advanced Practice Provider \T\ agree w/ the diagnosis \T\ care plan. I personally saw the pt \T\ performed a substantive portion of the visit, incldng all aspects of the (History/Exam/Medical Decision Making). 22:10 Chart complete. cp Disposition Summary: 08/19/24 01:56 Discharge Ordered Notes: Location: Home cp Problem: new cp Symptoms: have improved cp Condition: Stable cp Diagnosis - Laceration of unspecified muscle(s) and tendon(s) at lower leg level, right leg, cp initial encounter Followup: cp - With: Private Physician - When: 2 - 3 days - Reason: Wound Recheck Discharge Instructions: - Discharge Summary Sheet cp - Laceration Care, Adult cp Forms: - Medication Reconciliation Form cp - Antibiotic Education cp - Prescription Opioid Use cp - Patient Portal Instructions cp - Leadership Thank You Letter cp Prescriptions: - Augmentin 875-125 mg Oral Tablet - take 1 tablet ORAL route every 12 hours for 10 days; 20 tablet; Refills: 0, cp Product Selection Permitted Signatures: Quinton Bryan PA PA cp Calcote, Vanessa, RN RN vc1 Johnson Navas MD MD sp4
[2024-08-19] MEDS ORDERED: AMOX/K CLAV 875 MG TAB ONE (02:20)
--- NOTE | 2024-08-19 02:48 | ER ---
Nurse's Notes [facility] Name: Yara Vee Age: 69 yrs Sex: Female : 1955 Arrival Date: 08/18/2024 Time: 23:36 Bed 10 Private MD: Jesse Arcos Diagnosis: Laceration of unspecified muscle(s) and tendon(s) at lower leg level, right leg, initial encounter Presentation: 08/19 00:00 Chief complaint: Patient states: cut right foot on wire cage. vc1 00:00 Coronavirus screen: Client denies travel out of the [place] in the last 14 days. At this vc1 time, the client does not indicate any symptoms associated with coronavirus-19. Ebola Screen: Patient negative for fever greater than or equal to 101.5 degrees Fahrenheit, and additional compatible Ebola Virus Disease symptoms Patient denies exposure to infectious person. Patient denies travel to an Ebola-affected area in the 21 days before illness onset. No symptoms or risks identified at this time. Complicating Factors: There are no complicating factors for this patient. Initial Sepsis Screen: Does the patient meet any 2 criteria? HR > 90 bpm. No. Patient's initial sepsis screen is negative. Does the patient have a suspected source of infection? No. Patient's initial sepsis screen is negative. Risk Assessment: Do you want to hurt yourself or someone else? Patient reports no desire to harm self or others. Onset of symptoms was August 18, 2024. 00:00 Method Of Arrival: Wheelchair vc1 00:00 Acuity: JORGE 4 vc1 Triage Assessment: 00:00 General: Appears in no apparent distress. uncomfortable, slender, Behavior is calm, vc1 cooperative, appropriate for age. Pain: Complains of pain in right foot Pain does not radiate. Pain currently is 8 out of 10 on a pain scale. EENT: No deficits noted. No signs and/or symptoms were reported regarding the EENT system. Neuro: Level of Consciousness is awake, alert, obeys commands, Oriented to person, place, time, situation, Appropriate for age. Cardiovascular: Heart tones S1 S2 present Capillary refill < 3 seconds Patient's skin is warm and dry. Respiratory: Airway is patent Respiratory effort is even, unlabored, Respiratory pattern is regular, symmetrical. GI: No deficits noted. No signs and/or symptoms were reported involving the gastrointestinal system. : No deficits noted. No signs and/or symptoms were reported regarding the genitourinary system. Derm: Wound noted right foot. Musculoskeletal: No deficits noted. No signs and/or symptoms reported regarding the musculoskeletal system. Injury Description: Laceration sustained to right foot is contaminated, jagged, bleeding moderately. Historical: - Allergies: 00:00 No Known Allergies; vc1 - PMHx: 00:00 chronic back pain; Hyperlipidemia; Hypertension; thomas danlos syndrome; vc1 - PSHx: 00:00 bifemoral bypass; vc1 - Immunization history:: Last tetanus immunization: > 10 years ago. - Infectious Disease History:: Denies. - Social history:: Smoking status: Patient reports the use of cigarette tobacco products, 7/day. Screenin:45 [facility] ED Fall Risk Assessment (Adult) History of falling in the last 3 months, vc1 including since admission No falls in past 3 months (0 pts) Confusion or Disorientation No (0 pts) Intoxicated or Sedated No (0 pts) Impaired Gait No (0 pts) Mobility Assist Device Used No (0 pt) Altered Elimination No (0 pt) Score/Fall Risk Level 0 - 2 = Low Risk Oriented to surroundings, Maintained a safe environment, Educated pt \T\ family on fall prevention, incl call for assistance when getting out of bed. Abuse screen: Denies threats or abuse. Nutritional screening: No deficits noted. Tuberculosis screening: No symptoms or risk factors identified. Assessment: 02:46 Reassessment: Patient appears in no apparent distress at this time. Patient and/or vc1 family updated on plan of care and expected duration. Pain level reassessed. Patient is alert, oriented x 3, equal unlabored respirations, skin warm/dry/pink. Patient states symptoms have improved. Vital Signs: 00:00 BP 138 / 88; Pulse 108; Resp 16; Temp 97.9; Pulse Ox 99% ; Weight 49.44 kg; Height 5 vc1 ft. 3 in. ; Pain 8/10; 00:00 Body Mass Index 19.31 (49.44 kg, 160.02 cm) vc1 00:00 Pain Scale: Adult 1 ED Course: 08/18 23:40 Patient arrived in ED. gm2 23:40 Jesse Arcos DO is Private Physician. gm2 23:41 Quinton Bryan PA is PHCP. cp 23:41 Johnson Navas MD is Attending Physician. cp 08/19 00:00 Arm band placed on left wrist. vc1 00:00 Patient has correct armband on for positive identification. Bed in low position. Call vc1 light in reach. Provided Education on: plan of care. 01:27 Ayesha Zavala, RN is Primary Nurse. vc1 02:06 Triage completed. vc1 02:10 Assist provider with laceration repair on right foot that was between 2.6 to 7.5 cm vc1 using sutures. Set up tray. Performed by Quinton ELMORE Dressed with Alexander Reedorin. Patient did not have IV access during this emergency room visit. Administered Medications: 01:27 Drug: Boostrix Tdap IM 0.5 ml IM once; as a single dose Route: IM; Site: right deltoid; vc1 02:11 Follow up: Response: (VIS) Vaccine information sheet provided today. Questions and/or vc1 concerns addressed. VIS edition date: Nov 05, 2020.; No adverse reaction 01:28 Drug: Hydrocodone-Acetaminophen PO (7.5 mg-325 mg) 1 tabs PO once; RASS on ADMIN: vc1 Combtv4, Very Agttd3, Agttd2, Rstlss1, AlertClm0, Drwsy-1, Lt Sdtn-2, Mod Sdtn-3, Dp Sdtn-4, UnArsble-5 Route: PO; 02:11 Follow up: Response: No adverse reaction; Marked relief of symptoms vc1 02:11 Drug: Lidocaine Infiltration (2 %) 20 ml 5 ml Infiltration once; to bedside with vc1 epinephrine {Note: Administered by CATARINA Swift to right foot.} Volume: 5 ml; Route: Infiltration; 02:40 Drug: Amoxicillin-Clavulanate PO 875 mg PO once Route: PO; vc1 02:40 Follow up: Response: Medication administered at discharge. vc1 Medication: 02:10 Vaccine Information Statement (VIS) provided today. Questions and/or concerns vc1 addressed. VIS edition date: November 04, 2020. Outcome: 01:56 Discharge ordered by . cp 02:46 Discharged to home ambulatory, vc1 02:46 Condition: stable 02:46 Discharge instructions given to patient, Instructed on discharge instructions, follow up and referral plans. medication usage, Demonstrated understanding of instructions, follow-up care, medications, Prescriptions given X 1, 02:47 Patient left the ED. vc1 Signatures: Quinton Bryan PA PA cp Calcote, Vanessa, RN RN vc1 Tressa Donahue 2 Corrections: (The following items were deleted from the chart) 02:47 02:10 No provider procedures requiring assistance completed. vc1 vc1
[2024-08-19 02:53] VITALS: BP 138/88; TEMP 97.9; O2SAT 99
== END 2024-08-19 02:47 | disposition home or self-care (01) ==
LOC: ER 23:36
DX: S81.811A Laceration without foreign body, right lower leg, initial encounter (principal); W26.8XXA Contact with other sharp object(s), not elsewhere classified, initial encounter; Z23 Encounter for immunization
CPT/HCPCS: 90715